=== PATIENT | female | born 1935 | race African-American/Black ===

== ENCOUNTER → 2024-02-28 | Outpatient (CLI) | payer OTHER | END | disposition home or self-care (01) | LOC: XYW 10:30 | PROVIDERS: ATTEND Student in an Organized Health Care Education/Training Program | DX: I51.89 Other ill-defined heart diseases (principal); R06.02 Shortness of breath | CPT/HCPCS: 93306 ==

== ENCOUNTER → 2024-03-30 | Outpatient (CLI) | payer OTHER ==
[~2024-03-30] VITALS: Ht 157.5 cm; Wt 74.4 kg
[2024-03-30] MEDS: ADENOSINE 62 MG in GIVE UN-DILUTED 0 ML IV ONE (11:32)
== END | disposition home or self-care (01) ==
LOC: XYW 09:44
PROVIDERS: ATTEND Student in an Organized Health Care Education/Training Program
DX: R06.02 Shortness of breath (principal); I45.10 Unspecified right bundle-branch block; I48.91 Unspecified atrial fibrillation; E78.5 Hyperlipidemia, unspecified; I10 Essential (primary) hypertension
CPT/HCPCS: 78452; 93017; A9500; J0153

== ENCOUNTER → 2025-01-16 | Outpatient (CLI) | payer OTHER ==
[2025-01-16 11:15] LABS: Hematocrit 38.7 % (36.0-46.0); Hemoglobin 12.7 g/dL (12.2-16.2); Mean Corpuscular Hemoglobin 29.1 pg (28.0-32.0); Mean Corpuscular Volume 88.5 fL (80.0-100.0); Nucleated Red Blood Cells % 0.1 %
[2025-01-16 11:40] LABS: Alanine Aminotransferase 26 U/L (7-40); Albumin 4.2 g/dL (3.2-4.8); Alkaline Phosphatase 55 U/L (46-116); Anion Gap 10 (5-15); BUN/Creatinine Ratio 14.2 (10.0-20.0); Blood Urea Nitrogen 15 mg/dL (9-23); Calcium 10.0 mg/dL (8.7-10.4); Carbon Dioxide 22 mmol/L (20-31); Glucose 95 mg/dL (74-106); Potassium 4.3 mmol/L (3.5-5.1); Sodium 141 mmol/L (136-145); Total Protein 6.7 g/dL (5.7-8.2); Triglycerides 120 mg/dL (< 150)
[2025-01-16 11:41] LABS: Bilirubin, Total 0.5 mg/dL (0.2-1.0); Cholesterol 169 mg/dL (< 200); HDL Cholesterol 48 mg/dL (40-59)
[2025-01-16 11:49] LABS: Chloride 109 mmol/L (98-107)
== END | disposition home or self-care (01) ==
LOC: LAB 10:41
PROVIDERS: ATTEND Internal Medicine Hematology & Oncology
DX: I10 Essential (primary) hypertension (principal); R05.1 Acute cough
CPT/HCPCS: 36415; 80053; 80061; 82306; 84439; 84443; 85025

== ENCOUNTER 2025-04-05 15:25 | Outpatient (CLI) | payer OTHER ==
[2025-04-05 16:02] LABS: Hematocrit 41.4 % (36.0-46.0); Hemoglobin 13.2 g/dL (12.2-16.2); Mean Corpuscular Hemoglobin 28.2 pg (28.0-32.0); Mean Corpuscular Volume 88.1 fL (80.0-100.0); Nucleated Red Blood Cells % 0.3 %
[2025-04-05 16:26] LABS: Alanine Aminotransferase 18 U/L (7-40); Albumin 4.2 g/dL (3.2-4.8); Alkaline Phosphatase 60 U/L (46-116); Anion Gap 9 (5-15); BUN/Creatinine Ratio 11.6 (10.0-20.0); Bilirubin, Total 0.6 mg/dL (0.2-1.0); Blood Urea Nitrogen 14 mg/dL (9-23); Calcium 9.6 mg/dL (8.7-10.4); Carbon Dioxide 26 mmol/L (20-31); Cholesterol 170 mg/dL (< 200); Glucose 87 mg/dL (74-106); HDL Cholesterol 45 mg/dL (40-59); Potassium 4.0 mmol/L (3.5-5.1); Sodium 142 mmol/L (136-145); Total Protein 7.0 g/dL (5.7-8.2); Triglycerides 109 mg/dL (< 150)
[2025-04-05 16:27] LABS: Chloride 107 mmol/L (98-107)
== END 2025-04-08 17:00 | disposition home or self-care (01) ==
LOC: LAB 15:25
PROVIDERS: ATTEND Internal Medicine Hematology & Oncology
DX: I10 Essential (primary) hypertension (principal); R05.1 Acute cough
CPT/HCPCS: 36415; 80053; 80061; 82306; 84439; 84443; 85025

== ENCOUNTER 2025-05-02 16:02 | Inpatient (IN) | payer OTHER ==
[~2025-05-02] VITALS: Ht 172.7 cm; Wt 80.5 kg
--- NOTE | 2025-05-02 16:23 | ED.PDOC ---
History of Present Illness HPI Comments This is an 89-year-old female who comes in with chief complaint of shortness a breath. The patient states that she was having some dizziness and then went to the urgent care for the shortness for breath. She states that she did try taking her hand-held nebulizer which did not help. When she arrived at the [facility], the patient did receive a breathing treatment and then became somewhat lethargic as well as had some nausea. 911 was called and when the paramedics arrived, the patient became more alert. They placed her on 4 L nasal cannula because she was still somewhat hypoxic. On the 4 L the patient is 97%. EN route the patient's heart rate was 136 and the Accu-Chek was 80. Upon arrival, the patient is able to answer all questions appropriately. Chief Complaint: Shortness of Breath Time Seen by MD: 16:09 Reviewed Notes: Nurses Notes, Preventive Medicine Specialist Notes, Medications, Allergies (Allergies to penicillin) Allergies: Coded Allergies: Penicillins (Verified Allergy, Unknown, 03/30/24) Information Source: Patient, Emergency Med Personnel Mode of Arrival: EMS Severity: Moderate Timing: Hours Duration: Since onset Prehospital treatment: Accucheck (80), Paralegal Internship, IVF, Oxygen (4 L nasal cannula) Associated signs and symptoms Associated shortness a breath with the dizziness. The patient also had some nausea and lethargy Past Medical History PAST MEDICAL HISTORY: AFIB, Asthma, DM, GERD, Thyroid Surgical History: Tonsillectomy Surgical History (Other): Right hip surgery INFECTION CONTROL PREVENTIONIST History: No Pertinent INFECTION CONTROL PREVENTIONIST History Family History Family History: Family hx of heart jake Social History Smoker: Non-Smoker Alcohol: Denies ETOH Use Drugs: Denies Drug Use Lives In: Home Constitutional: reports: others (Episode of lethargy); denies: chills, diaphoresis, fatigue, fever, malaise, sweats, weakness EENTM: denies: blurred vision, double vision, ear bleeding, ear discharge, ear drainage, ear pain, ear ringing, eye pain, eye redness, hearing loss, mouth pain, mouth swelling, nasal discharge, nose bleeding, nose congestion, nose pain, photophobia, tearing, throat pain, throat swelling, voice changes, others Respiratory: reports: shortness of breath; denies: cough, hemoptysis, orthopnea, SOB at rest, SOB with excertion, stridor, wheezing, others Cardiovascular: denies: chest pain, dizzy spells, diaphoresis, Dyspnea on exertion, edema, irregular heart beat, left arm pain, lightheadedness, palpitations, PND, syncope, others Gastrointestinal: reports: nausea; denies: abdomen distended, abdominal pain, blood streaked bowels, constipated, diarrhea, dysphagia, difficulty swallowing, hematemesis, melena, poor appetite, poor fluid intake, rectal bleeding, rectal pain, vomiting, others Genitourinary: denies: abnormal vagina bleeding, burning, dyspareunia, dysuria, flank pain, frequency, hematuria, incontinence, pain, , vagina discharge, urgency, others Neurological: reports: dizziness; denies: fainting, headache, left sided numbness, left sided weakness, numbness, paresthesia, pre-existing deficit, right sided numbness, right sided weakness, seizure, speech problems, tingling, tremors, weakness, others Musculoskeletal: denies: back pain, gout, joint pain, joint swelling, muscle pain, muscle stiffness, neck pain, others Integumetry: denies: bruises, change in color, change in hair/nails, dryness, laceration, lesions, lumps, rash, wounds, others Allergic/Immunocompromised: denies: Difficulty Healing, Frequent Infections, Hives, Itching, others Hematologic/Lymphatic: denies: anemia, blood clots, easy bleeding, easy bruising, swollen glands, others Endocrine: denies: excessive hunger, excessive sweating, excessive thirst, excessive urination, flushing, intolerance to cold, intolerance to heat, unexplained weight gain, unexplained weight loss, others Psychiatric: denies: anxiety, bipolar disorder, depression, hopeless, panic disorder, schizophrenia, sleepless, suicidal, others Physical Exam General Appearance: Moderate Distress HEENT: Normal ENT Inspection, Pharynx Normal, TMs Normal Neck: Full Range of Motion, Non-Tender, Normal, Normal Inspection Respiratory: Chest Non-Tender, Decreased Breath Sounds, No Accessory Muscle Use, Respiratory Distress, Other (Decreased breath sounds on the right) Cardiovascular: No Edema, No JVD, No Murmur, No Gallop, Normal Peripheral Pulses, Regular Rate/Rhythm Breast Exam: Deferred Gastrointestinal: No Organomegaly, Non Tender, No Pulsatile Mass, Normal Bowel Sounds, Soft Genitalia: Deferred Pelvic: Deferred Rectal: Deferred Extremities: No calf tenderness, Normal capillary refill, No pedal edema Musculoskeletal : Apperance: Normal Neurologic: Alert, retail sales assistant II-XII nml as Tested, Motor Weakness, Normal Affect, Normal Mood, No Sensory Deficits Cerebellar Function: Normal Reflexes: Normal Skin: Dry, Normal Color, Warm Lymphatic: No Adenopathy Was a procedure done? Was a procedure done?: No EKG EKG : Pulse Rate (adult): 137 [place]: Normal Block: RBBB ST: Nonsp (LAFB) Differential Dx Considerations may include: Generalized weakness, electrolyte imbalance, dehydration X-Ray, Labs, Meds, VS Vital Signs Date Time Temp Pulse Resp B/P (MAP) Pulse Ox O2 Delivery O2 Flow Rate FiO2 05/02/25 16:24 137 05/02/25 16:14 137 05/02/25 16:11 97.7 136 18 146/111 9 97.7 Lab Test 05/02/25 17:48 05/02/25 16:28 Range/Units Troponin I High Sensitivity 23 22 </=34 ng/L White Blood Count 5.5 4.4-10.8 10^3/uL Red Blood Count 5.00 4.0-5.20 10^6/uL Hemoglobin 14.0 12.2-16.2 g/dL Hematocrit 46.2 H 36.0-46.0 % Mean Corpuscular Volume 92.5 80.0-100.0 fL Mean Corpuscular Hemoglobin 28.1 28.0-32.0 pg Mean Corpuscular Hemoglobin Concent 30.4 L 32.0-36.0 g/dL Red Cell Distribution Width 17.8 H 11.8-14.3 % Platelet Count 249 140-450 10^3/uL Mean Platelet Volume 7.9 6.9-10.8 fL Neutrophils (%) (Auto) 66.5 37.0-80.0 % Lymphocytes (%) (Auto) 24.1 10.0-50.0 % Monocytes (%) (Auto) 7.9 0.0-12.0 % Eosinophils (%) (Auto) 0.7 0.0-7.0 % Basophils (%) (Auto) 0.8 0.0-2.0 % Neutrophils # (Auto) 3.6 1.6-8.6 10 ^3/uL Lymphocytes # (Auto) 1.3 0.4-5.4 10 ^3/uL Monocytes # (Auto) 0.4 0-1.3 10 ^3/uL Eosinophils # (Auto) 0 0-0.8 10 ^3/uL Basophils # (Auto) 0 0-0.2 10 ^3/uL Nucleated Red Blood Cells 0.2 % Sodium Level 141 136-145 mmol/L Potassium Level 5.1 3.5-5.1 mmol/L Chloride Level 107 98-107 mmol/L Carbon Dioxide Level 20 20-31 mmol/L Anion Gap 14 5-15 Blood Urea Nitrogen 13 9-23 mg/dL Creatinine 1.30 H 0.550-1.02 mg/dL Glomerular Filtration Rate Calc 40 >90 mL/min BUN/Creatinine Ratio 10.0 10.0-20.0 Serum Glucose 78 74-106 mg/dL Calcium Level 9.9 8.7-10.4 mg/dL B-Type Natriuretic Peptide 966.80 0-100 pg/mL Chest XR indicates: 1. Right lower lobe pleural effusion. The BNP shows 966.8 The chemistry panel shows a creatinine of 1.3 The patient's CBC is within normal limits. The troponin level is within normal limits At this time, the patient is being admitted to the hospitalist The diagnosis is acute respiratory distress Right pleural effusion Images Reviewed?: Images reviewed and evaluated by me Time of 1ST Reevaluation: 16:22 Reevaluation 1ST: Unchanged Patient Education/Counseling: Diagnosis, Treatment, Prognosis Family Education/Counseling: No Family Present SEPSIS Sepsis Screen Date sepsis recognized/suspect: May 02, 2025 Time Sepsis recognized/suspect: 1613 Recent Procedure: No On Antibiotic Therapy: No Respiratory Rate >20: No Heart Rate >90: Yes Temp<36 C (96.8 F) or >38.3 C: No SBP <90 or MAP <65 mmHG: No New Acute Mental Status Change: No Is the patient on CPAP, BIPAP,: No Physician Orders Urinalysis (05/02/25 16:11) Chest Portable (05/02/25 16:11) Heplock Iv (05/02/25 16:11) Pulse Oximetry (05/02/25 16:11) Paralegal Internship (05/02/25 16:11) Blood Pressure (10/16/25 16:11) Electrocardigram (05/02/25 16:11) Troponin-I Hs (05/02/25 19:11) Electrocardigram (05/02/25 17:11) Electrocardigram (05/02/25 19:11) Covid19 Antigen Marta (05/02/25 ) Vital Signs Date Time Temp Pulse Resp B/P (MAP) Pulse Ox O2 Delivery O2 Flow Rate FiO2 05/02/25 16:24 137 05/02/25 16:14 137 05/02/25 16:11 97.7 136 18 146/111 9 97.7 Laboratory Tests Test 05/02/25 16:28 White Blood Count 5.5 10^3/uL (4.4-10.8) Departure 1 Departure Time of Disposition: 18:39 Impression: Primary Impression: Acute respiratory distress Additional Impression: Pleural effusion, right Disposition: 09 ADMITTED INPATIENT Admit to: Tele Condition: Fair Critical Care Note Critical Care Time?: Yes (45 min-critical care time only) Stability Stability form required: Yes Unstable for transfer: Telemetry monitoring (Telemetry monitoring required), ED Physician Assesment (Clinical assesment) Heart Score Heart Score: Heart Score Response (Comments) Value History N/A 0 EKG N/A 0 Age N/A 0 Risk Factors N/A 0 Troponin N/A 0 Total 0 I personally scribed for LUIS ANTONIO SHANE MD ([email or web address]) on 05/02/25 at 16:46. Electronically submitted by Javan Melara ([email or web address]). LUIS ANTONIO SHANE MD May 02, 2025 16:23
[2025-05-02 16:40] LABS: Hematocrit 46.2 % (36.0-46.0); Hemoglobin 14.0 g/dL (12.2-16.2); Mean Corpuscular Hemoglobin 28.1 pg (28.0-32.0); Mean Corpuscular Volume 92.5 fL (80.0-100.0); Nucleated Red Blood Cells % 0.2 %
--- NOTE | 2025-05-02 16:44 | DVH ---
CHEST RADIOGRAPH Indication: sob Technique: Single frontal view of the chest was obtained Comparison: None FINDINGS: Lines and Tubes: None Lungs: Right lower lobe infiltrate and pleural effusion. Pleura: Right pleural effusion.. No pneumothorax. Cardiomediastinal contours: Unremarkable Bones: No acute osseous abnormality. IMPRESSION: 1. Right lower lobe pleural effusion.
[2025-05-02 16:48] LABS: Potassium 5.1 mmol/L (3.5-5.1); Sodium 141 mmol/L (136-145)
[2025-05-02 16:49] LABS: Anion Gap 14 (5-15); Calcium 9.9 mg/dL (8.7-10.4); Carbon Dioxide 20 mmol/L (20-31)
[2025-05-02 16:51] LABS: Chloride 107 mmol/L (98-107)
[2025-05-02 16:54] LABS: BUN/Creatinine Ratio 10.0 (10.0-20.0); Blood Urea Nitrogen 13 mg/dL (9-23); Glucose 78 mg/dL (74-106)
--- NOTE | 2025-05-02 18:47 | ECG ---
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
[2025-05-02] MEDS: methylPREDNISolone SOD SUCC 125 MG/2 ML VL IV ONE (19:45)
[2025-05-02 20:13] VITALS: PULSE 130; RESP 20; O2SAT 97
[2025-05-02 22:25] LABS: Alanine Aminotransferase 37.0 U/L (7-40); Albumin 4.4 g/dL (3.2-4.8); Alkaline Phosphatase 90.0 U/L (46-116); Bilirubin, Direct 0.8 mg/dL (<0.3); Bilirubin, Total 2.1 mg/dL (0.2-1.0); Cholesterol 157.0 mg/dL (< 200); HDL Cholesterol 50.0 mg/dL (40-59); Magnesium 2.1 mg/dL (1.6-2.6); Total Protein 7.3 g/dL (5.7-8.2); Triglycerides 98.0 mg/dL (< 150)
[2025-05-02 22:36] LABS: Lipase 23.0 U/L (12-53)
[2025-05-02 22:58] LABS: INR 1.46 (0.9-1.15); Partial Thromboplastin Time 27.0 SEC (24.5-34.5); Prothrombin Time 14.9 sec (9.3-11.8)
[2025-05-02 23:29] LABS: Lactic Acid w/Reflex 2.6 mmol/L (0.4-2.0)
[2025-05-02] MEDS: SODIUM CHLORIDE 0.9% 1,000 ML IV ONE (23:30)
[2025-05-03] VITALS (12 sets, daily range): BP systolic 109–115; BP diastolic 57–72; PULSE 132–141; RESP 12–21; TEMP 97.5–98.1; O2SAT 92–100
[2025-05-03] MEDS ORDERED: ENOXAPARIN SOD 40 MG/0.4 ML SYRINGE SC SCH (00:15)
[2025-05-03] MEDS ORDERED: AZITHROMYCIN 500MG/ 250ML 250 ML IV ONE (00:45)
[2025-05-03] MEDS: SODIUM CHLORIDE 0.9% 1,000 ML IV ONE ×2 (00:45)
[2025-05-03] MEDS ORDERED: SODIUM CHLORIDE 0.9% 1,000 ML IV SCH (00:45)
--- NOTE | 2025-05-03 00:48 | DVH ---
INDICATION: Rule out cholecystitis TECHNIQUE: Multiple real-time sonographic images were obtained of the right upper quadrant. COMPARISON: None FINDINGS: Liver is normal in size measuring 12.9 cm with mild diffuse fatty infiltration. No focal lesions. There is no intrahepatic or extrahepatic ductal dilatation. The common duct measures 0.7 cm. The gallbladder is without evidence of stone or sludge. The gallbladder wall measures 1.0 cm and appe ars edematous. The right kidney measures 6.9 cm. The right kidney is normal in contour, size, and shape. The echogen icity is normal. There is no hydronephrosis. Probable nonobstructing calculus of the midpole measurin g 0.6 cm. The pancreas is not well visualized due to overlying bowel gas. IMPRESSION: No gallstones or evidence for acute cholecystitis. Gallbladder wall is thickened, a nonspecific finding that can be related to the patient's overall flu id status or an adjacent inflammatory process such as hepatitis or pancreatitis.
[2025-05-03] MEDS ORDERED: DEXTROSE (50%) 50ML SYRG IV PRN (01:45)
--- NOTE | 2025-05-03 02:01 | DVHHPRES ---
History of Present Illness Resident Creating Document: PETE ELIZABETH RESIDENT History of Present Illness This is an 89 year old female with past medical history of hypertension, hyperlipidemia, type 2 diabetes mellitus, presented to the ER with chief complain of shortness of breath. She reported having difficulty breathing since 1 day, present while resting, associated with back pain and dizziness. Patient describes pain in lower back as vague, 9/10, nonradiating. Since 1 day, she has been feeling lightheaded, with difficulty in standing up, causing her to lose balance. These symptoms urged her visit to the urgent care, where she started complaining of nausea and lethargy and was brought to the ER by paramedics. She denies fever, chills, sick contacts or recent travel. She does not use any home oxygen, currently saturating on 3 L oxygen. Previous hospitalization: In 2022 for influenza PMHx: Hypertension, hyperlipidemia, type 2 diabetes mellitus PSHx: Hip replacement surgery and 2 sections Social history: Quit smoking in 2008, 40 pack per year smoking history. Denies alcohol, recreational drug use. Full code, next to kin his grandson. Home medication: Eliquis, unsure of other home medication Allergic history: No known allergies Patient was examined at bedside today. Vitals show tachycardia, tachypnea, curr ently on 3 L oxygen. Patient is admitted for further evaluation and manage. Review of Systems Review of Systems ROS: Constitutional: Denies weight loss, fever and chills. HEENT: Denies changes in vision and hearing. Respiratory: Shortness of breath Cardiovascular: Denies chest discomfort or palpitations GI: Denies abdominal pain, nausea, vomiting and diarrhea. : Denies dysuria and urinary frequency. Musculoskeletal: Myalgias; denies joint pain Skin: Denies rash and pruritus. Neurological: Dizziness; Denies headache, vision or hearing problems Allergies: Coded Allergies: Penicillins (Verified Allergy, Unknown, 03/30/24) Medications Current Medications Medications Dose Ordered Sig/Mis Route Start Time Stop Time Status Last Admin Dose Admin Atorvastatin Calcium 20 mg HS PO 05/03/25 22:00 Ceftriaxone Sodium 50 ml @ 100 mls/hr DAILY@09 IV 05/04/25 09:00 Levalbuterol HCl 1.25 mg Q6HR NEB 05/03/25 06:00 Ipratropium [place] 0.5 mg Q6HWA NEB 05/03/25 06:00 Furosemide 20 mg BIDD IV 05/03/25 06:00 Pantoprazole Sodium 40 mg DAILY IV 05/03/25 10:00 Sodium Chloride 1,000 ml @ 60 mls/hr [id number] IV 05/03/25 00:45 Doxycycline Hyclate 100 ml @ 50 mls/hr Q12H IV 05/03/25 22:00 Methylprednisolone Sodium Succinate 40 mg BID IV 05/03/25 10:00 Enoxaparin Sodium 80 mg Q12HR SC 05/03/25 10:00 Exam Vital Signs Vital Signs Date Time Temp Pulse Resp B/P (MAP) Pulse Ox O2 Delivery O2 Flow Rate FiO2 05/03/25 00:39 98.3 135 20 134/88 (103) 99 98.3 05/03/25 00:39 Nasal Cannula 3.0 05/03/25 00:27 32 Exam General: Patient alert and oriented in person, place and time. Patient following commands. HEENT: Normocephalic, atraumatic, moist mucous membranes Respiratory/pulmonary: Reduced breath sounds in right lower lung romero. Cardiovascular: Tachycardia. Normal heart sounds S1 and S2 with no associated murmurs Abdomen: Abdomen nondistended, there is no pain to palpation in any of the abdominal quadrants, no palpable masses. Extremities: Grade 3 pitting edema in bilateral lower extremities. Peripheral Pulses: 3+ Radial (R). 3+ Radial (L). 3+ Dorsalis pedis (R). 3+ Dorsalis pedis(L) Skin: No rashes or pruritus, there is no sacral edema present at this time. Neurological: Intact cranial nerves with no focal neurologic deficits Labs/Xrays Labs Test 05/02/25 23:44 05/02/25 21:15 05/02/25 19:58 05/02/25 16:28 Range/Units Lactic Acid Level 2.5 *H 0.4-2.0 mmol/L Prothrombin Time 14.9 H 9.3-11.8 sec Prothrombin Time INR 1.46 H 0.9-1.15 Activated Partial Thromboplast Time 27.0 24.5-34.5 SEC Troponin I High Sensitivity 24 </=34 ng/L Vitamin B12 Level 787 211-911 pg/mL Vitamin D 25-Hydroxy 48.5 30.0-100 ng/mL White Blood Count 5.5 4.4-10.8 10^3/uL Red Blood Count 5.00 4.0-5.20 10^6/uL Hemoglobin 14.0 12.2-16.2 g/dL Hematocrit 46.2 H 36.0-46.0 % Mean Corpuscular Volume 92.5 80.0-100.0 fL Mean Corpuscular Hemoglobin 28.1 28.0-32.0 pg Mean Corpuscular Hemoglobin Concent 30.4 L 32.0-36.0 g/dL Red Cell Distribution Width 17.8 H 11.8-14.3 % Platelet Count 249 140-450 10^3/uL Mean Platelet Volume 7.9 6.9-10.8 fL Neutrophils (%) (Auto) 66.5 37.0-80.0 % Lymphocytes (%) (Auto) 24.1 10.0-50.0 % Monocytes (%) (Auto) 7.9 0.0-12.0 % Eosinophils (%) (Auto) 0.7 0.0-7.0 % Basophils (%) (Auto) 0.8 0.0-2.0 % Neutrophils # (Auto) 3.6 1.6-8.6 10 ^3/uL Lymphocytes # (Auto) 1.3 0.4-5.4 10 ^3/uL Monocytes # (Auto) 0.4 0-1.3 10 ^3/uL Eosinophils # (Auto) 0 0-0.8 10 ^3/uL Basophils # (Auto) 0 0-0.2 10 ^3/uL Nucleated Red Blood Cells 0.2 % Sodium Level 141 136-145 mmol/L Potassium Level 5.1 3.5-5.1 mmol/L Chloride Level 107 98-107 mmol/L Carbon Dioxide Level 20 20-31 mmol/L Anion Gap 14 5-15 Blood Urea Nitrogen 13 9-23 mg/dL Creatinine 1.30 H 0.550-1.02 mg/dL Glomerular Filtration Rate Calc 40 >90 mL/min BUN/Creatinine Ratio 10.0 10.0-20.0 Serum Glucose 78 74-106 mg/dL Hemoglobin A1c 5.9 H <5.7 % A1C Calcium Level 9.9 8.7-10.4 mg/dL Phosphorus Level 4.1 2.4-5.1 mg/dL Magnesium Level 2.1 1.6-2.6 mg/dL Total Bilirubin 2.1 H 0.2-1.0 mg/dL Direct Bilirubin 0.8 H <0.3 mg/dL Aspartate Amino Transferase (AST) 66 H 13-40 U/L Alanine Aminotransferase (ALT) 37 7-40 U/L Alkaline Phosphatase 90 46-116 U/L C-Reactive Protein High Sensitivity 2.40 H <1.0 mg/dL B-Type Natriuretic Peptide 966.80 0-100 pg/mL Total Protein 7.3 5.7-8.2 g/dL Albumin 4.4 3.2-4.8 g/dL Triglycerides Level 98 < 150 mg/dL Cholesterol Level 157 < 200 mg/dL LDL Cholesterol 89 < 100 mg/dL HDL Cholesterol 50 40-59 mg/dL Lipase 23 12-53 U/L Thyroid Stimulating Hormone (TSH) 2.72 0.55-4.78 uIU/mL SEPSIS Sepsis Screen Date sepsis recognized/suspect: May 03, 2025 Time Sepsis recognized/suspect: 42 Recent Procedure: No On Antibiotic Therapy: No Respiratory Rate >20: No Heart Rate >90: Yes Temp<36 C (96.8 F) or >38.3 C: No SBP <90 or MAP <65 mmHG: No New Acute Mental Status Change: No Is the patient on CPAP, BIPAP,: No Physician Orders Drug Screen (05/02/25 21:24) Urinalysis (05/02/25 21:24) Complete Blood Count (05/03/25 04:00) Basic Metabolic Panel (05/03/25 04:00) LIVER (05/02/25 23:31) Admit (05/03/25 00:11) Allergies (05/03/25 00:11) Code Status (05/03/25 00:11) Cardiac Diet-2gna,Lofat,Lochol (05/03/25 Breakfast) Echo 2d Mode Cardiac Dop (05/03/25 00:11) Carotid Duplx W Color Dop (05/03/25 00:11) Condition: Serious (05/03/25 00:11) Oxygen By Nasal Cannula (05/03/25 00:11) Stat Ekg For Chest Pain (05/03/25 00:11) Notify Md Of Changes From Base (05/03/25 00:11) Photographers' Model For 24 Hours (05/03/25 00:11) Emergency Dysrhythmia Protocol (05/03/25 00:11) Rhythm Strips Once Every Shift (05/03/25 00:11) Atorvastatin (Lipitor) (05/03/25 22:00) Levalbuterol Hcl (Xopenex Medneb) (05/03/25 06:00) Ipratropium Medneb (Atrovent Medneb) (05/03/25 06:00) Rapid Influenza A&B (05/03/25 00:11) Respiratory Culture W/ Gs (05/03/25 00:11) Sputum Induction (05/03/25 00:11) Furosemide Injection (Lasix Injection) (05/03/25 06:00) Mrsa Screen (05/03/25 00:20) Pantoprazole (Protonix) (05/03/25 10:00) Ceftriaxone 1gm/50ml (Rocephin) (05/04/25 09:00) Sodium Chloride 0.9% (05/03/25 00:45) Sodium Chloride 0.9% (05/03/25 00:45) Sodium Chloride 0.9% (05/03/25 00:45) Blood Culture (05/03/25 00:39) Chest Ultrasound (05/03/25 01:16) Doxycycline 100mg/100ml (Vibramycin) (05/03/25 22:00) Doxycycline 100mg/100ml (Vibramycin) (05/03/25 01:30) Urine Bacterial Culture (05/03/25 01:16) Methylprednisolone Sod Succ (Solu Medrol (05/03/25 10:00) Enoxaparin Sodium (Lovenox) (05/03/25 10:00) Abg W/ Co-Ox (05/03/25 01:21) Electrocardigram (05/03/25 01:21) Vital Signs Date Time Temp Pulse Resp B/P (MAP) Pulse Ox O2 Delivery O2 Flow Rate FiO2 05/03/25 00:39 98.3 135 20 134/88 (103) 99 98.3 05/03/25 00:39 135 20 99 Nasal Cannula 3.0 05/03/25 00:27 97.5 132 20 115/57 97 3.0 32 97.5 05/02/25 20:13 130 20 97 Nasal Cannula* 3 32 05/02/25 20:13 97.5 130 22 115/57 (76) 97 97.5 Laboratory Tests Test 05/02/25 16:28 05/02/25 21:15 05/02/25 23:44 White Blood Count 5.5 10^3/uL (4.4-10.8) Lactic Acid Level 2.6 mmol/L (0.4-2.0) *H 2.5 mmol/L (0.4-2.0) *H Medications Medications Dose Ordered Sig/Mis Route Start Time Stop Time Status Last Admin Dose Admin Methylprednisolone Sodium Succinate 125 mg ONCE ONCE IV 05/02/25 16:15 05/02/25 16:16 DC 05/02/25 19:45 125 MG Assessment/Plan Assessment/Plan Sepsis due to Community-acquired pneumonia Acute exacerbation of COPD Acute hypoxic respiratory failure Right moderate pleural effusion CXR revealed right lower lobe consolidation/ pleural effusion Tachycardia, tachypnea, lactic acidosis Sputum culture, blood culture, MRSA, Gram stain ordered IV ceftriaxone 1 g, IV doxycycline 100 mg b.i.d. (QTC prolongation) Restricted fluid resuscitation in context of exacerbation of heart failure Oxygen supplementation currently on 3 L; taper down as tolerated Nebulization therapy with albuterol and ipratropium Prednisolone 40 mg IV b.i.d. 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 Repeat echocardiogram CXR revealed right lower lobe consolidation/ pleural effusion Started on furosemide 20 mg IV b.i.d. 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 Full code DISPOSITION: Telemetry Patient's status and plan discussed with the patient. Case discussed with Dr. Jennings. Plan discussed with: Patient, Daughter, Other (Nurses) My Orders Orders - PETE ELIZABETH RESIDENT Procedure Category Date Status Time Drug Screen LAB 05/02/25 Logged 21:24 Urinalysis LAB 05/02/25 Logged 21:24 Complete Blood Count LAB 05/03/25 Logged 04:00 Basic Metabolic Panel LAB 05/03/25 Logged 04:00 LIVER US 05/02/25 Resulted 23:31 Admit ADMIT 05/03/25 Transmitted 00:11 Allergies JORDAN 05/03/25 In Process 00:11 Code Status CODE 05/03/25 Transmitted 00:11 Cardiac DIET 05/03/25 Transmitted Diet-2gna,Lofat,Lochol Breakfast Echo 2d Mode Cardiac US 05/03/25 Logged DOP 00:11 Carotid Duplx W Color US 05/03/25 Logged DOP 00:11 Condition: Serious JORDAN 05/03/25 In Process 00:11 Oxygen By Nasal RT 05/03/25 Transmitted Cannula 00:11 Stat Ekg For Chest JORDAN 05/03/25 In Process Pain 00:11 Notify Of Changes JORDAN 05/03/25 In Process From Base 00:11 Photographers' Model For JORDAN 05/03/25 In Process 24 Hours 00:11 Emergency Dysrhythmia JORDAN 05/03/25 In Process Protocol 00:11 Rhythm Strips Once JORDAN 05/03/25 In Process Every Shift 00:11 Atorvastatin (Lipitor) PHA 05/03/25 In Process 22:00 Levalbuterol Hcl PHA 05/03/25 In Process (Xopenex Medneb) 06:00 Ipratropium Medneb PHA 05/03/25 In Process (Atrovent Medneb) 06:00 Rapid Influenza A&B LAB 05/03/25 Logged 00:11 Respiratory Culture MARIE 05/03/25 Logged W/ Gs 00:11 Sputum Induction RT 05/03/25 Logged 00:11 Furosemide Injection PHA 05/03/25 In Process (Lasix Injection) 06:00 Mrsa Screen MARIE 05/03/25 Logged 00:20 Pantoprazole PHA 05/03/25 In Process (Protonix) 10:00 Ceftriaxone 1gm/50ml PHA 05/04/25 In Process (Rocephin) 09:00 Sodium Chloride 0.9% PHA 05/03/25 In Process 00:45 Sodium Chloride 0.9% PHA 05/03/25 In Process 00:45 Sodium Chloride 0.9% PHA 05/03/25 In Process 00:45 Blood Culture MARIE 05/03/25 Logged 00:39 Date of Service: May 03, 2025 Billing Provider: TRISTEN JENNINGS MD Common Visit Codes: [id number] INP/OBS CARE (HIGH) Secondary Visit Codes: [id number] CARE PLAN 30 MINUTES PETE ELIZABETH RESIDENT May 03, 2025 02:01 PHIL BERRIOS RESIDENT May 03, 2025 05:57
[2025-05-03 04:30] LABS: COVID19 ANTIGEN SOFIA FIA NEGATIVE (NEGATIVE)
--- NOTE | 2025-05-03 04:31 | DVH ---
CHEST RADIOGRAPH Indication: central line placement Technique: Single frontal view of the chest was obtained COMPARISON: XY CHEST PORTABLE on DOS: 05/02/25, XY CHEST TWO VIEWS ROUTINE on DOS: 01/31/23 FINDINGS: Lines and Tubes: New right internal jugular central venous catheter tip projects over the distal infe rior vena cava. Lungs: Stable appearing right pleural effusion and basilar pulmonary airspace disease and diffuse inc reased prominence of the pulmonary vasculature. No pneumothorax. Cardiomediastinal contours: Cardiomegaly. Bones: Unremarkable IMPRESSION: 1. New right internal jugular central venous catheter tip projects over the distal inferior vena cava . Recommend retraction as indicated. 2. Right pleural effusion and basilar pulmonary airspace disease. 3. Cardiomegaly and diffuse increased prominence of the pulmonary vasculature.
--- NOTE | 2025-05-03 04:49 | DVH ---
Bilateral Chest Sonogram Date: 05/03/2025 02:03 AM Clinical history: Evaluate right pleural fluid Technique: Limited sonographic evaluation of the bilateral chest was performed to evaluate for pleura l effusion. Finding/Impression: There is a moderate right and small left pleural effusion.
[2025-05-03] MEDS: HYDROmorphone HCL 2 MG/ML VL/or syr IV ONE (04:54)
[2025-05-03] MEDS: FUROSEMIDE 20 MG/2 ML VIAL IV ONE (04:54)
[2025-05-03] MEDS: PIPERACILLIN-TAZOB 3.375GM 100 ML IV ONE (04:54)
[2025-05-03] MEDS: IPRATROPIUM BROM 0.5 MG/2.5ML INH SOL NEB SCH (06:26)
[2025-05-03] MEDS: LEVALBUTEROL HCL 1.25 MG/3 ML NEB NEB SCH (06:26)
[2025-05-03] MEDS: InsuLIN REG 1unit/0.01ml Soln (100units/ml) SC SCH (07:00)
[2025-05-03] MEDS: ACCU-CHEK COMFORT CURVE STRIP VI SCH (07:00)
[2025-05-03 07:08] LABS: Urine Budding Yeast OCCASIONAL /hpf (None Seen); Urine Protein, UAD Negative (Negative)
[2025-05-03 07:15] LABS: Calcium 9.2 mg/dL (8.7-10.4); Potassium 4.4 mmol/L (3.5-5.1); Sodium 141 mmol/L (136-145)
[2025-05-03 07:18] LABS: Opiate Scree,Urine Neg (NEGATIVE)
[2025-05-03 07:19] LABS: BUN/Creatinine Ratio 15.1 (10.0-20.0); Blood Urea Nitrogen 18 mg/dL (9-23); Hematocrit 41.2 % (36.0-46.0); Hemoglobin 12.9 g/dL (12.2-16.2); Mean Corpuscular Hemoglobin 28.7 pg (28.0-32.0); Mean Corpuscular Volume 91.4 fL (80.0-100.0); Nucleated Red Blood Cells % 0.6 %
[2025-05-03 07:21] LABS: Chloride 108 mmol/L (98-107); Glucose 121 mg/dL (74-106)
[2025-05-03 07:22] LABS: Anion Gap 13 (5-15); Carbon Dioxide 20 mmol/L (20-31)
[2025-05-03 07:23] LABS: Amphetamine Screen, Urine Neg (NEGATIVE); Barbiturate Scree,Urine Neg (NEGATIVE); Benzodiazephine Screen, Urine Neg (NEGATIVE); Cocaine Screen, Urine Neg (NEGATIVE); Phencyclidine Screen, Urine Neg (NEGATIVE)
[2025-05-03 07:24] LABS: Cannabinoid Screen, Urine Neg (NEGATIVE)
--- NOTE | 2025-05-03 08:30 | DVH ---
BILATERAL DUPLEX CAROTID ULTRASOUND: HISTORY: Presyncope COMPARISON: None TECHNIQUE: Hand held high-resolution real-time ultrasound and color-flow doppler analysis is utilized to evaluate the bilateral carotid arteries. Velocity measurements are validated with angiographic measurements. Velocity criteria are extrapolate d from diameter data as defined by the society of radiologists in ultrasound consensus conference rad iology 2003; 229;340-346. FINDINGS: Calcific plaquing is seen in bilateral carotid bulbs left greater than right. There is no focal elevated velocity or color aliasing to suggest significant carotid artery stenosis. There is normal antegrade flow in both vertebral arteries. Right: Peak systolic velocity common carotid Artery: 45 cm/s Peak systolic velocity internal carotid Artery: 53 cm/s Left: Peak systolic velocity common carotid Artery: 36 cm/s Peak systolic velocity internal carotid Artery: 56 cm/s IMPRESSION: 1. Calcific plaquing in bilateral carotid bulbs left greater than right with less than 50% stenosis.
[2025-05-03] MEDS: PANTOPRAZOLE 40 MG/10 ML VIAL INJ IV SCH (09:46)
[2025-05-03] MEDS ORDERED: AZITHROMYCIN 500MG/ 250ML 250 ML IV SCH (10:00)
[2025-05-03] MEDS ORDERED: ENOXAPARIN SOD 30 MG/0.3 ML SYRINGE SC SCH (10:00)
[2025-05-03] MEDS: FUROSEMIDE 20 MG/2 ML VIAL IV SCH (10:04)
[2025-05-03] MEDS: PANTOPRAZOLE 40 MG/10 ML VIAL INJ IV ONE (10:04)
[2025-05-03] MEDS: ENOXAPARIN SOD 100 MG/1 ML SYRINGE SC SCH (10:05)
[2025-05-03] MEDS: methylPREDNISolone SOD SUCC 40 MG/ML VL IV SCH (10:05)
[2025-05-03] MEDS: DOXYCYCLINE 100MG/100ML 100 ML IV ONE (10:05)
[2025-05-03] MEDS: AMIODARONE BOLUS KIT 100 ML IV ONE (14:37)
[2025-05-03] MEDS: AMIODARONE 360mg/200mL PREMIX 200 ML IV ONE (14:44)
--- NOTE | 2025-05-03 17:55 | DVHPNRES ---
Progress Note Date Seen: May 03, 2025 Resident Creating Document: MARCEL HOLLINS RESIDENT Has the PT tested + for MRSA If YES, has PT been informed?: No Medical Necessity Reason Pt with a Central, PICC or Fol: Yes Subjective Review of Systems This is an 89 year old female with past medical history of hypertension, hyperlipidemia, type 2 diabetes mellitus, presented to the ER with chief complain of shortness of breath. She is a poor historian and reported having difficulty breathing since 1 day. Patient describes pain in lower back as vague, 9/10, nonradiating. Since 1 day, she has been feeling lightheaded, with difficulty in standing up, causing her to lose balance. These symptoms urged her visit to the urgent care, where she started complaining of nausea and lethargy and was brought to the ER by paramedics. She denies fever, chills, sick contacts or recent travel. She does not use any home oxygen, currently saturating on 3 L oxygen. Previous hospitalization: In 2022 for influenza PMHx: Hypertension, hyperlipidemia, type 2 diabetes mellitus PSHx: Hip replacement surgery and 2 sections Social history: Quit smoking in 2008, 40 pack per year smoking history. Denies alcohol, recreational drug use. Full code, next to kin great grandson. Home medication: Eliquis, unsure of other home medication Allergic history: No known allergies ROS: 05/03/25 Patient was examined at bedside today. patient was drowsy in the morning but was fully oriented ANO x4 in the afternoon. Patient stated that she has been taking Eliquis daily and patient's heart rate has been consistently high due to her atrial fibrillation so we started her on amiodarone bolus and then continuous drip. I spoke to the patient's great grandson who is her caregiver and he states that the patient might have dementia- that she has been 'mixing things up and recalling old memories more often these days'. As per the great grandson, patient has been weak and fatigued for the whole week and her face and feet have swollen up. He also reports that patient has been having shortness of breath and after the appointment at PCP yesterday at 2:30 p.m., patient reported she felt dizzy and was unable to walk due to shortness of breath which is why the paramedics brought her to the emergency department. I discussed the patient's condition in detail with the great grandson and he communicated understanding. Objective vital signs Vital Sign Date Time Temp Pulse Resp B/P (MAP) Pulse Ox O2 Delivery O2 Flow Rate FiO2 05/03/25 17:45 134 20 100 05/03/25 17:32 Nasal Cannula* 2 28 05/03/25 16:00 97.5 125/89 (101) 97.5 medications Current Medications Medications Dose Ordered Sig/Mis Route Start Time Stop Time Status Last Admin Dose Admin Atorvastatin Calcium 20 mg HS PO 05/03/25 22:00 Ceftriaxone Sodium 50 ml @ 100 mls/hr DAILY@09 IV 05/04/25 09:00 Levalbuterol HCl 1.25 mg Q6HR NEB 05/03/25 06:00 05/03/25 17:32 1.25 MG Ipratropium Locke 0.5 mg Q6HWA NEB 05/03/25 06:00 05/03/25 17:32 0.5 MG Pantoprazole Sodium 40 mg DAILY IV 05/03/25 10:00 Doxycycline Hyclate 100 ml @ 50 mls/hr Q12H IV 05/03/25 22:00 Methylprednisolone Sodium Succinate 40 mg BID IV 05/03/25 10:00 05/03/25 10:05 40 MG Enoxaparin Sodium 80 mg Q12HR SC 05/03/25 10:00 05/03/25 10:05 80 MG Diagnostic Test (Pha) 1 strip ACHS 05/03/25 07:00 05/03/25 13:53 1 STRIP Insulin Human Regular ACHS SC 05/03/25 07:00 Dextrose 50 ml UD PRN IV 05/03/25 01:45 Examination General: Patient alert and oriented in person, place and time. Patient following commands. HEENT: Normocephalic, atraumatic, moist mucous membranes, on 3 L/min of oxygen via nasal cannula Respiratory/pulmonary: Reduced breath sounds in right lower lung romero. Cardiovascular: Tachycardia. Normal heart sounds S1 and S2 with no associated murmurs Abdomen: Abdomen nondistended, there is no pain to palpation in any of the abdominal quadrants, no palpable masses. Extremities: No pitting edema noted on examination, peripheral Pulses 3+ Radial (R). 3+ Radial (L). 3+ Dorsalis pedis (R). 3+ Dorsalis pedis(L) Skin: No rashes or pruritus, there is no sacral edema present at this time. Neurological: Intact cranial nerves with no focal neurologic deficits laboratory and microbiology Laboratory Tests 05/03/25 06:23 Test 05/03/25 06:23 Range/Units Serum Glucose 121 H 74-106 mg/dL Labs and/or images reviewed: Labs reviewed by me, Image(s) reviewed by me Problem List/Assessment/Plan Problem List/Assessment/Plan #Sepsis due to Community-acquired pneumonia # rule out Acute exacerbation of COPD #Acute hypoxic respiratory failure #Right moderate pleural effusion -CXR revealed right lower lobe consolidation/ pleural effusion -Tachycardia, tachypnea, lactic acidosis -Sputum culture, blood culture, MRSA, Gram stain ordered -IV ceftriaxone 1 g, IV doxycycline 100 mg b.i.d. (QTC prolongation) -Restricted fluid resuscitation in context of exacerbation of heart failure -Oxygen supplementation currently on 3 L; taper down as tolerated -Nebulization therapy with albuterol and ipratropium -Prednisolone 40 mg IV b.i.d. -pulmonology consult placed for pleural effusion on the right lung, pending #Acute exacerbation of Combined chronic diastolic, systolic heart failure HFmrEF -Echocardiogram from 02/2024 shows LVEF 45%, grade 1 diastolic dysfunction. Repeat echocardiogram -CXR revealed right lower lobe consolidation/ pleural effusion -Started on furosemide 20 mg IV b.i.d. 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) #GFR-40 -Avoiding nephrotoxins like NSAIDS, contrast -Low salt diet, maintain hydration -Repeat BMP DIET: Cardiac DVT PROPHYLAXIS: Lovenox on hold GI PROPHYLAXIS: Protonix Patient's status and plan discussed with the patient and great grandson; goals of care discussed for 20 minutes; full code Case discussed with Plan discussed with: Patient, Other (Nurse) Date of Service: May 03, 2025 Billing Provider: YUMIKO BURNS MD Common Visit Codes: [id number] INP/OBS CARE(HIGH) Secondary Visit Codes: 88139-UDHLLEAR CARE PLAN 30 MINUTES (20 minutes) Addendum Addendum Addendum I was physically present for the baker portions of the service provided to patient by THE RESIDENT. I have reviewed the documentation, discussed the case with resident and agree with the resident's documentation except as noted. Also the patient's clinical case was discussed with the patient's nurse. This medical document was created using an electronic medical record system with computerized dictation system. Although this document has been carefully reviewed, there might still be some phonetic and typographical errors. These areas are purely typographical due to imperfections of the software programs, and do not reflect any compromise in the patient's medical care. Late signature. MARCEL HOLLINS RESIDENT May 03, 2025 17:55 YUMIKO BURNS MD May 06, 2025 11:36
[2025-05-03] MEDS: AMIODARONE 360mg/200mL PREMIX 200 ML IV SCH (21:16)
--- NOTE | 2025-05-03 21:59 | DVHINCON2 ---
Date of service: May 03, [address] Armida Merino Reason for Consultation Acute hypoxic respiratory failure due to pneumonia and pleural effusion. History of Present Illness An 89-year-old woman with past medical history of hypertension, hyperlipidemia, and type 2 diabetes mellitus who presented to the ED on 05/02/25 with chief complaint of shortness of breath. She reported having difficulty breathing sinc e 1 day, present while resting, associated with back pain and dizziness. Patient described pain in lower back as vague, 9/10, nonradiating. Since 1 day, she has been feeling lightheaded, with difficulty in standing up, causing her to lose balance. The patient initially presented to urgent care, where she complained of nausea and lethargy and was brought to the ER by paramedics. She denied fever, chills, chest pain or other acute complaints. Patient does not use any home oxygen; while here, required supplemental oxygen at 3 LPM NC. Patient was admitted for further care. Pulmonary consultation is requested for evaluation and management of acute hypoxic respiratory failure due to pneumonia and pleural effusion. Review of Systems: 14-point review of systems negative unless otherwise noted above. Past Medical History: Hypertension, hyperlipidemia, type 2 diabetes mellitus Previous hospitalization: In 2022 for influenza Past Surgical History: Hip replacement surgery and 2 sections Medications: Reviewed. Allergies: Penicillins Family History: No family history of premature CAD. No family history of lung disorders. Social History: Former smoker. Quit smoking in 2008, [id number] smoking history. No alcohol or illicit drug use. Allergies: Coded Allergies: Penicillins (Verified Allergy, Unknown, 03/30/24) Current Medications Current Medications Medications (Trade) Dose Ordered Sig/Mis Route PRN Reason Start Time Stop Time Status Last Admin Enoxaparin Sodium (Lovenox) 40 mg DAILY SC 05/03/25 00:15 05/03/25 00:44 DC Atorvastatin Calcium (Lipitor) 20 mg HS PO 05/03/25 22:00 Azithromycin 250 ml @ 125 mls/hr DAILY IV 05/03/25 10:00 05/03/25 00:40 DC Ceftriaxone Sodium 50 ml @ 100 mls/hr DAILY@09 IV 05/04/25 09:00 Levalbuterol HCl (Xopenex Medneb) 1.25 mg Q6HR NEB 05/03/25 06:00 05/03/25 17:32 Ipratropium [place] (Atrovent Medneb) 0.5 mg Q6HWA NEB 05/03/25 06:00 05/03/25 17:32 Furosemide (Lasix Injection) 20 mg BIDD IV 05/03/25 06:00 05/03/25 10:18 DC 05/03/25 10:04 Pantoprazole Sodium (Protonix) 40 mg DAILY IV 05/03/25 10:00 Sodium Chloride 1,000 ml @ 60 mls/hr [id number] IV 05/03/25 00:45 05/03/25 10:18 DC Enoxaparin Sodium (Lovenox) 30 mg DAILY SC 05/03/25 10:00 05/03/25 01:21 DC Doxycycline Hyclate 100 ml @ 50 mls/hr Q12H IV 05/03/25 22:00 Methylprednisolone Sodium Succinate (Solu Medrol) 40 mg BID IV 05/03/25 10:00 05/03/25 10:05 Enoxaparin Sodium (Lovenox) 80 mg Q12HR SC 05/03/25 10:00 05/03/25 10:05 Diagnostic Test (Pha) (Accu-Chek Comfort Curve T) 1 strip ACHS 05/03/25 07:00 05/03/25 18:15 Insulin Human Regular (InsuLIN R) ACHS SC 05/03/25 07:00 05/03/25 18:18 Dextrose 50 ml UD PRN IV Blood Sugar LESS THAN 60 05/03/25 01:45 Amiodarone HCL/ Dextrose 200 ml @ 16.66 mls/ hr Q12H IV 05/03/25 21:00 05/03/25 21:16 Vital Signs Vital Signs Date Time Temp Pulse Resp B/P (MAP) Pulse Ox O2 Delivery O2 Flow Rate FiO2 05/03/25 19:00 136 20 106/82 (90) 95 05/03/25 17:32 Nasal Cannula* 2 28 05/03/25 16:00 97.5 97.5 Physical Exam Gen.: Patient lying in bed in no apparent distress. On supplemental oxygen. Head: Normocephalic, atraumatic. Eyes: EOMI/PERRLA. Ears: Normal hearing. Normal anatomy. Neck/trachea: Trachea midline, supple. Nose: Normal external anatomy. Mouth: Moist mucous membranes. Chest: Decreased air entry bilaterally. No wheezing or rhonchi. Cardiovascular: Positive S1, positive S2. Regular rate and rhythm. Abdomen: Positive bowel sounds in all 4 quadrants. Soft, non-tender, non- distended. : Deferred. Rectal: Deferred. Skin: Warm, dry. Intact. Extremities: 2+ radial pulses bilaterally. No lower extremity edema. Neuro: Awake, alert, oriented x3. No gross motor or sensory deficits. Cranial nerves II through XII intact. Gait not assessed. Labs/Diagnostic Data Labs Test 05/03/25 18:13 05/03/25 08:15 05/03/25 06:23 05/03/25 02:56 Range/Units POC Glucose 166 H 70-106 mg/dl Lactic Acid Level 1.7 0.4-2.0 mmol/L White Blood Count 4.0 #L 4.4-10.8 10^3/uL Red Blood Count 4.51 4.0-5.20 10^6/uL Hemoglobin 12.9 12.2-16.2 g/dL Hematocrit 41.2 # 36.0-46.0 % Mean Corpuscular Volume 91.4 80.0-100.0 fL Mean Corpuscular Hemoglobin 28.7 28.0-32.0 pg Mean Corpuscular Hemoglobin Concent 31.4 L 32.0-36.0 g/dL Red Cell Distribution Width 16.9 H 11.8-14.3 % Platelet Count 247 140-450 10^3/uL Mean Platelet Volume 7.7 6.9-10.8 fL Neutrophils (%) (Auto) 83.8 H 37.0-80.0 % Lymphocytes (%) (Auto) 14.7 10.0-50.0 % Monocytes (%) (Auto) 1.2 0.0-12.0 % Eosinophils (%) (Auto) 0.1 0.0-7.0 % Basophils (%) (Auto) 0.2 0.0-2.0 % Neutrophils # (Auto) 3.4 1.6-8.6 10 ^3/uL Lymphocytes # (Auto) 0.6 0.4-5.4 10 ^3/uL Monocytes # (Auto) 0 0-1.3 10 ^3/uL Eosinophils # (Auto) 0 0-0.8 10 ^3/uL Basophils # (Auto) 0 0-0.2 10 ^3/uL Nucleated Red Blood Cells 0.6 % Sodium Level 141 136-145 mmol/L Potassium Level 4.4 3.5-5.1 mmol/L Chloride Level 108 H 98-107 mmol/L Carbon Dioxide Level 20 20-31 mmol/L Anion Gap 13 5-15 Blood Urea Nitrogen 18 9-23 mg/dL Creatinine 1.19 H 0.550-1.02 mg/dL Glomerular Filtration Rate Calc 44 >90 mL/min BUN/Creatinine Ratio 15.1 10.0-20.0 Serum Glucose 121 H 74-106 mg/dL Calcium Level 9.2 8.7-10.4 mg/dL Influenza Type A Antigen Negative Negative Influenza Type B Antigen Negative Negative SARS-CoV-2 Antigen (Rapid) Negative NEGATIVE Test 05/03/25 01:58 05/02/25 21:15 05/02/25 19:58 05/02/25 16:28 Range/Units Blood Gas Specimen Type Venous Blood Gas Sample Site Vbg - n/a Blood Gas Patient Temperature 37.0 Arterial Blood Date Drawn [id number] Daniel Test N/a Venous Blood pH 7.315 L 7.320-7.430 Venous Blood pCO2 at Patient Temp 40.8 38.0-54.0 mmHg Venous Blood pO2 at Patient Temp 39.5 23.0-48.0 mmHg Venous Blood HCO3 20.3 L 22.0-29.0 mmol/L Venous Blood Base Excess -5.5 L -2.0-3.0 mmol/L Blood Gas Liter Flow 2.00 Blood Gas Modality Vbg - n/a FiO2 % 28.0 Prothrombin Time 14.9 H 9.3-11.8 sec Prothrombin Time INR 1.46 H 0.9-1.15 Activated Partial Thromboplast Time 27.0 24.5-34.5 SEC Troponin I High Sensitivity 24 </=34 ng/L Vitamin B12 Level 787 211-911 pg/mL Vitamin D 25-Hydroxy 48.5 30.0-100 ng/mL Hemoglobin A1c 5.9 H <5.7 % A1C Phosphorus Level 4.1 2.4-5.1 mg/dL Magnesium Level 2.1 1.6-2.6 mg/dL Total Bilirubin 2.1 H 0.2-1.0 mg/dL Direct Bilirubin 0.8 H <0.3 mg/dL Aspartate Amino Transferase (AST) 66 H 13-40 U/L Alanine Aminotransferase (ALT) 37 7-40 U/L Alkaline Phosphatase 90 46-116 U/L C-Reactive Protein High Sensitivity 2.40 H <1.0 mg/dL B-Type Natriuretic Peptide 966.80 0-100 pg/mL Total Protein 7.3 5.7-8.2 g/dL Albumin 4.4 3.2-4.8 g/dL Triglycerides Level 98 < 150 mg/dL Cholesterol Level 157 < 200 mg/dL LDL Cholesterol 89 < 100 mg/dL HDL Cholesterol 50 40-59 mg/dL Lipase 23 12-53 U/L Thyroid Stimulating Hormone (TSH) 2.72 0.55-4.78 uIU/mL Test 05/02/25 06:23 Range/Units Urine Color Yellow Yellow Urine Clarity Turbid H Clear Urine pH 5.0 5.0-9.0 Urine Specific [place] 1.014 1.001-1.035 Urine Protein Negative Negative Urine Ketones Negative Negative Urine Blood 1+ H Negative /uL Urine Nitrite 1+ H Negative Urine Bilirubin Negative Negative Urine Urobilinogen Normal Negative mg/dL Urine Leukocyte Esterase 3+ Negative /uL Urine RBC 5 0 - 4 /hpf Urine Microscopic WBC 19 H 0-5 /HPF Urine Squamous Epithelial Cells Few <5 /hpf Urine Bacteria Many H None Seen /hpf Urine Hyaline Casts Mod 0 - 2 /lpf Urine Mucus Few None Seen Urine Yeast (Budding) Occasional None Seen /hpf Urine Glucose Normal Normal mg/dL Urine Opiates Screen Neg NEGATIVE Urine Fentanyl Screen Neg NEGATIVE Urine Barbiturates Screen Neg NEGATIVE Urine Phencyclidine Screen Neg NEGATIVE Urine Amphetamines Screen Neg NEGATIVE Urine Benzodiazepines Screen Neg NEGATIVE Urine Cocaine Screen Neg NEGATIVE Urine Cannabinoids Screen Neg NEGATIVE Assessment Impression: Acute hypoxic respiratory failure due to pneumonia Sepsis due to pneumonia Pneumonia, likely gram negative rods vs. gram positive cocci Right pleural effusion Atelectasis, compressive due to pleural effusion Lactic acidosis Acute on chronic combined CHF Hx of nicotine dependence Plan: Supplemental oxygen Titrate to keep O2 sats above 92%. CT chest reviewed, demonstrates: Mild cardiomegaly, moderate right and small left pleural effusions and chest wall edema. Findings could be due to CHF and/or volume overload. Moderate dependent bilateral lower lobe consolidations which could reflect passive atelectasis or pneumonia, which could be on the basis of aspiration. Mild emphysema. Mild 3-vessel calcified coronary artery disease. Tiny nonobstructing left upper pole renal calculus. Cystic lesion within the midline anterior abdominal wall, partially outside of the skin surface. CXR demonstrates right pleural effusion and basilar pulmonary airspace disease. Cardiomegaly and diffuse increased prominence of the pulmonary vasculature Continue bronchodilators. Continue antibiotics IV steroids Incentive spirometry due to atelectasis Amiodarone for atrial fibrillation Echocardiogram from 02/2024 shows LVEF 45%, grade 1 diastolic dysfunction. Repeat echocardiogram Follow up Cardiology recommendations Accu-Cheks, ISS. Diurese with Lasix as tolerated Monitor renal function. Monitor electrolytes. Supplement as necessary. Monitor ins and outs. GI prophylaxis DVT prophylaxis - Lovenox. Prognosis: Poor given patient's multiple co-morbidities. Rest of plan per hospitalist and other consultants. A total of 76 minutes of clinical care time was spent reviewing the patient record, examining the patient, making a diagnostic and therapeutic plan, d iscussing this plan with the medical personnel, following up on diagnostic studies and following the patient for clinical stability excluding any and all procedures. At least 50% of this time was spent in direct, [id number] contact. Thank you, Dr. Merino, for allowing me to participate in this patient's care. Further recommendations will depend on the patient's clinical course. Please do not hesitate to contact me if you have any questions or concerns. This medical document was created using an electronic medical record system with [employer] dictation system. Although these documentations are being carefully reviewed, there may still be some phonetic and typographical changes. The errors are purely typographical, due to imperfection on the software program, and do not reflect any compromise in the patient's medical care. Plan discussed with: Patient, Other (RN/Dr. Merino) Visit Coding Pulmonary Billing Provider: MELANIE VILLARREAL MD Date of Service if different f: May 03, 2025 Common Visit Codes: [id number] INP/OBS CARE (HIGH) MELANIE VILLARREAL MD May 03, 2025 21:59
--- NOTE | 2025-05-03 22:23 | DVH ---
CLINICAL HISTORY: Pnuemonia TECHNIQUE: CT of the chest was performed without intravenous contrast. This exam was performed accord ing to our departmental dose optimization program. Up-to-date CT equipment and radiation dose reducti on techniques are utilized as appropriate. COMPARISON: XY CHEST XRAY 1 VIEW on DOS: 05/03/25, US CHEST ULTRASOUND on DOS: 05/03/25, XY CHEST POR TABLE on DOS: 05/02/25 FINDINGS: Lower Neck: Unremarkable Axilla, Mediastinum and Sarah: No axillary or mediastinal lymphadenopathy. Limited evaluation of the sarah in the absence of intravenous contrast. Heart and Great Vessels: Mild cardiomegaly with small pericardial fluid. The thoracic aorta is rebekah l in caliber with mild calcified atherosclerotic plaque. At least mild 3-vessel calcified coronary ar josephine disease. The central pulmonary arteries are normal caliber. There is a right IJ central venous catheter in place with the tip terminating in the right atrium. Airway, Lungs and Pleura: Trachea and central airways are patent. There is mild emphysema. Moderate r ight and small left pleural effusions. There is moderate [id number]-[id number]-left dependent bilateral lower lobe consolidations. No pneumothorax. Upper Abdomen: There is a cystic lesion in the upper midline anterior abdominal wall which is partial ly outside of the skin surface measuring 3.7 x 3.3 cm on series 2, image 87. Mild thickening of the l vdu-ttnhpei-tqjo-right adrenal glands. Atrophic pancreas. Mild atrophy of the right kidney. There is a tiny nonobstructing calculus in the upper pole left kidney. Chest Wall and Osseous Structures: Multilevel thoracic spondylosis. No destructive osseous lesion. Th ere is chest wall edema. IMPRESSION: 1. Mild cardiomegaly, moderate right and small left pleural effusions and chest wall edema. Findings could be due to CHF and/or volume overload. 2. Moderate dependent bilateral lower lobe consolidations which could reflect passive atelectasis or pneumonia , which could be on the basis of aspiration. 3. Mild 3-vessel calcified coronary artery disease. 4. Tiny nonobstructing left upper pole renal calculus. 5. Cystic lesion within the midline anterior abdominal wall, partially outside of the skin surface. Correlate with clinical exam. 6. Mild emphysema. Radiation optimization: All CT scans at this facility use at least one of these dose optimization katie hniques: automated exposure control mA and/or kV adjustment per patient size (includes targeted exam s where dose is matched to clinical indication) or iterative reconstruction.
[2025-05-03] MEDS: ATORVASTATIN 20 MG TAB PO SCH (23:24)
[2025-05-03] MEDS: DOXYCYCLINE 100MG/100ML 100 ML IV SCH (23:25)
[2025-05-03] MEDS ORDERED: ACET-1881 PO (23:44)
[2025-05-04] VITALS (15 sets, daily range): BP systolic 104–123; BP diastolic 80–98; PULSE 59–145; RESP 16–21; TEMP 97.6–98.6; O2SAT 96–100
[2025-05-04 07:06] LABS: Hematocrit 40.0 % (36.0-46.0); Hemoglobin 12.8 g/dL (12.2-16.2); Mean Corpuscular Hemoglobin 28.8 pg (28.0-32.0); Mean Corpuscular Volume 90.1 fL (80.0-100.0); Nucleated Red Blood Cells % 0.7 %
[2025-05-04 07:13] LABS: Chloride 104 mmol/L (98-107); Potassium 4.3 mmol/L (3.5-5.1); Sodium 139 mmol/L (136-145)
[2025-05-04 07:14] LABS: Anion Gap 13 (5-15); Carbon Dioxide 22 mmol/L (20-31)
[2025-05-04 07:15] LABS: Calcium 9.0 mg/dL (8.7-10.4)
[2025-05-04 07:20] LABS: BUN/Creatinine Ratio 22.6 (10.0-20.0)
[2025-05-04 07:27] LABS: Glucose 143 mg/dL (74-106)
[2025-05-04 07:28] LABS: Blood Urea Nitrogen 42 mg/dL (9-23)
[2025-05-04] MEDS ORDERED: POLYETHYLENE GLYCOL 17 GM PWDR PO PRN (12:15)
[2025-05-04] MEDS: DOCUSATE SOD 100 MG CAP PO SCH (12:59)
--- NOTE | 2025-05-04 13:31 | DVHPNRES ---
Progress Note Date Seen: May 04, 2025 Resident Creating Document: MARCEL HOLLINS RESIDENT Has the PT tested + for MRSA If YES, has PT been informed?: No Medical Necessity Reason Pt with a Central, PICC or Fol: Yes Subjective Review of Systems This is an 89 year old female with past medical history of hypertension, hyperlipidemia, type 2 diabetes mellitus, presented to the ER with chief complain of shortness of breath. She reported having difficulty breathing since 1 day, present while resting, associated with back pain and dizziness. Patient describes pain in lower back as vague, 9/10, nonradiating. Since 1 day, she has been feeling lightheaded, with difficulty in standing up, causing her to lose balance. These symptoms urged her visit to the urgent care, where she started complaining of nausea and lethargy and was brought to the ER by paramedics. She denies fever, chills, sick contacts or recent travel. She does not use any home oxygen, currently saturating on 3 L oxygen. Previous hospitalization: In 2022 for influenza PMHx: Hypertension, hyperlipidemia, type 2 diabetes mellitus PSHx: Hip replacement surgery and 2 sections Social history: Quit smoking in 2008, 40 pack per year smoking history. Denies alcohol, recreational drug use. Full code, next to kin his grandson. Home medication: Eliquis, unsure of other home medication Allergic history: No known allergies ROS: 05/03/25 Patient was examined at bedside today. patient was drowsy in the morning but was fully oriented ANO x4 in the afternoon. Patient stated that she has been taking Eliquis daily and patient's heart rate has been consistently high due to her atrial fibrillation so we started her on amiodarone bolus and then continuous drip. I spoke to the patient's great grandson who is her caregiver and he states that the patient might have dementia that she has been mixing things up and recalling old memories more often these days. As per the grandson patient has been weak and fatigued for whole week and her face and feet have swollen up. He also reports that patient has been having shortness of breath and after the appointment at PCP yesterday at 2:30 a.m., patient reported she felt dizzy and was unable to walk due to shortness of breath which is why the paramedics brought her to the emergency department. I discussed the patient's condition in detail with the great grandson and he communicated understanding. 05/04/2025: Patient was seen and examined by me at the bedside today. Patient is A&O x4 today morning. She reports feeling better and that her shortness of breath has decreased. She does report of feeling tired. Patient complains that she strains likely to pass stool and has not been able to. MiraLax 17 g and docusate 100 mg has been added today. Pulmonology consult was done yesterday who suggested continuation of antibiotics and steroids. Grandson was informed regarding pulmonary doctor's decision. We will continue current management for now. Code status was discussed yesterday with patient's great grandson and patient and they set patient is full code. MRSA positive, mupirocin for nurse added today. Isolation precautions also added today. Objective vital signs Vital Sign Date Time Temp Pulse Resp B/P (MAP) Pulse Ox O2 Delivery O2 Flow Rate FiO2 05/04/25 12:32 145 16 100 05/04/25 12:24 Nasal Cannula* 2 28 05/04/25 09:00 97.6 104/84 (91) 97.6 Total Intake and Output 05/03/25 05/03/25 05/04/25 15:00 23:00 07:00 Intake Total 200 ml 133.32 ml 220 ml Output Total 1150 ml Balance 200 ml 133.32 ml -930 ml medications Current Medications Medications Dose Ordered Sig/Mis Route Start Time Stop Time Status Last Admin Dose Admin Atorvastatin Calcium 20 mg HS PO 05/03/25 22:00 05/03/25 23:24 20 MG Ceftriaxone Sodium 50 ml @ 100 mls/hr DAILY@09 IV 05/04/25 09:00 05/04/25 09:19 100 MLS/HR Levalbuterol HCl 1.25 mg Q6HR NEB 05/03/25 06:00 05/04/25 12:23 1.25 MG Ipratropium [place] 0.5 mg Q6HWA NEB 05/03/25 06:00 05/04/25 12:23 0.5 MG Pantoprazole Sodium 40 mg DAILY IV 05/03/25 10:00 05/04/25 09:20 40 MG Doxycycline Hyclate 100 ml @ 50 mls/hr Q12H IV 05/03/25 22:00 05/04/25 11:18 50 MLS/HR Methylprednisolone Sodium Succinate 40 mg BID IV 05/03/25 10:00 05/04/25 09:20 40 MG Enoxaparin Sodium 80 mg Q12HR SC 05/03/25 10:00 05/04/25 09:21 80 MG Diagnostic Test (Pha) 1 strip ACHS 05/03/25 07:00 05/04/25 11:19 1 STRIP Insulin Human Regular ACHS SC 05/03/25 07:00 05/04/25 12:59 2 UNITS Dextrose 50 ml UD PRN IV 05/03/25 01:45 Amiodarone HCL/ Dextrose 200 ml @ 16.66 mls/ hr Q12H IV 05/03/25 21:00 05/04/25 09:19 16.66 MLS/HR Polyethylene Glycol 17 gm DAILYPRN PRN PO 05/04/25 12:15 Docusate Sodium 100 mg DAILY PO 05/04/25 12:15 05/04/25 12:59 100 MG Examination General: Patient alert and oriented in person, place and time. Patient following commands. HEENT: Normocephalic, atraumatic, moist mucous membranes, on 3 L/min of oxygen via nasal cannula Respiratory/pulmonary: Reduced breath sounds in right lower lung romero. Cardiovascular: Tachycardia. Normal heart sounds S1 and S2 with no associated murmurs Abdomen: Abdomen nondistended, there is no pain to palpation in any of the abdominal quadrants, no palpable masses. Extremities: No pitting edema noted on examination, peripheral Pulses 3+ Radial (R). 3+ Radial (L). 3+ Dorsalis pedis (R). 3+ Dorsalis pedis(L) Skin: No rashes or pruritus, there is no sacral edema present at this time. Neurological: Intact cranial nerves with no focal neurologic deficits laboratory and microbiology Laboratory Tests 05/04/25 06:16 Test 05/04/25 06:16 Range/Units Serum Glucose 143 H 74-106 mg/dL Microbiology Date/Time Source Procedure Growth Status 05/03/25 06:23 Voided Urine Urine Culture - Preliminary Resulted 05/03/25 06:23 Blood Blood Culture - Preliminary NO GROWTH AFTER 24 HOURS OF INCUBATION. Resulted Labs and/or images reviewed: Labs reviewed by me, Image(s) reviewed by me Problem List/Assessment/Plan Problem List/Assessment/Plan #Sepsis due to Community-acquired pneumonia # rule out Acute exacerbation of COPD #Acute hypoxic respiratory failure #Right moderate pleural effusion -CXR revealed right lower lobe consolidation/ pleural effusion -Tachycardia, tachypnea, lactic acidosis -Sputum culture, blood culture, MRSA, Gram stain ordered -IV ceftriaxone 1 g, IV doxycycline 100 mg b.i.d. (QTC prolongation) -Restricted fluid resuscitation in context of exacerbation of heart failure -Oxygen supplementation currently on 3 L; taper down as tolerated -Nebulization therapy with albuterol and ipratropium -Prednisolone 40 mg IV b.i.d. -pulmonology consult placed for pleural effusion on the right lung, suggest continuation of antibiotics and steroids #Acute exacerbation of Combined chronic diastolic, systolic heart failure HFmrEF -Echocardiogram from 02/2024 shows LVEF 45%, grade 1 diastolic dysfunction. Repeat echocardiogram -CXR revealed right lower lobe consolidation/ pleural effusion -Started on furosemide 20 mg IV b.i.d. 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 Burns Plan discussed with: Patient, Other (great grandson) Date of Service: May 04, 2025 Billing Provider: YUMIKO BURNS MD Common Visit Codes: [id number] INP/OBS CARE(HIGH) Addendum Addendum Addendum I was physically present for the baker portions of the service provided to patient by THE RESIDENT. I have reviewed the documentation, discussed the case with resident and agree with the resident's documentation except as noted. Also the patient's clinical case was discussed with the patient's nurse. This medical document was created using an electronic medical record system with computerized dictation system. Although this document has been carefully reviewed, there might still be some phonetic and typographical errors. These areas are purely typographical due to imperfections of the software programs, and do not reflect any compromise in the patient's medical care. Late signature. MARCEL HOLLINS May 04, 2025 13:31 YUMIKO BURNS MD May 06, 2025 11:41
--- NOTE | 2025-05-04 15:12 | DVHPN2 ---
Progress Note - Dictate Date Seen: May 04, 2025 Has the PT tested + for MRSA If YES, has PT been informed?: No Medical Necessity Reason Pt with a Central, PICC or Fol: Yes vital signs Vital Sign Date Time Temp Pulse Resp B/P (MAP) Pulse Ox O2 Delivery O2 Flow Rate FiO2 05/04/25 13:00 98.6 122 17 105/89 (94) 97 98.6 05/04/25 12:24 Nasal Cannula* 2 28 Total Intake and Output 05/03/25 05/03/25 05/04/25 15:00 23:00 07:00 Intake Total 200 ml 133.32 ml 220 ml Output Total 1150 ml Balance 200 ml 133.32 ml -930 ml medications Current Medications Medications Dose Ordered Sig/Mis Route Start Time Stop Time Status Last Admin Dose Admin Atorvastatin Calcium 20 mg HS PO 05/03/25 22:00 05/03/25 23:24 20 MG Ceftriaxone Sodium 50 ml @ 100 mls/hr DAILY@09 IV 05/04/25 09:00 05/04/25 09:19 100 MLS/HR Levalbuterol HCl 1.25 mg Q6HR NEB 05/03/25 06:00 05/04/25 12:23 1.25 MG Ipratropium [place] 0.5 mg Q6HWA NEB 05/03/25 06:00 05/04/25 12:23 0.5 MG Pantoprazole Sodium 40 mg DAILY IV 05/03/25 10:00 05/04/25 09:20 40 MG Doxycycline Hyclate 100 ml @ 50 mls/hr Q12H IV 05/03/25 22:00 05/04/25 11:18 50 MLS/HR Methylprednisolone Sodium Succinate 40 mg BID IV 05/03/25 10:00 05/04/25 09:20 40 MG Enoxaparin Sodium 80 mg Q12HR SC 05/03/25 10:00 05/04/25 09:21 80 MG Diagnostic Test (Pha) 1 strip ACHS 05/03/25 07:00 05/04/25 11:19 1 STRIP Insulin Human Regular ACHS SC 05/03/25 07:00 05/04/25 12:59 2 UNITS Dextrose 50 ml UD PRN IV 05/03/25 01:45 Amiodarone HCL/ Dextrose 200 ml @ 16.66 mls/ hr Q12H IV 05/03/25 21:00 05/04/25 09:19 16.66 MLS/HR Polyethylene Glycol 17 gm DAILYPRN PRN PO 05/04/25 12:15 Docusate Sodium 100 mg DAILY PO 05/04/25 12:15 05/04/25 12:59 100 MG Mupirocin 1 applic BID EACHNOSTRI 05/04/25 22:00 05/09/25 21:59 laboratory and microbiology Laboratory Tests 05/04/25 06:16 Test 05/04/25 06:16 Range/Units Serum Glucose 143 H 74-106 mg/dL Assessment/Plan Impression Acute hypoxemic respiratory failure Pleural effusions Pneumonia CHF Patient seen and examined Events Low oxygen requirements On 2 liters nasal cannula Oxygen at baseline No acute events Labs and imaging reviewed Management Supplemental oxygen Titrate to maintain sats 90% or above Incentive spirometry Continue antibiotics F/u cultures Bronchodilators Diurese Monitor renal function Monitor electrolytes Supplement as needed DVT prophylaxis Plan discussed with: Patient KARIE BERMEO MD May 04, 2025 15:12
--- NOTE | 2025-05-04 16:46 | DVHSR ---
APPROVED REPORT EXAM: Two-dimensional and M-mode echocardiogram with Doppler and color Doppler. Blood Pressure: 123/89 mmHg INDICATION presyncope RISK FACTORS Height: 5'8, Weight: 182 DIMENSIONS LVDd4.3 (3.8-5.7cm)LA (2D)3.5 (1.9-4.0cm)Aortic Root2.9 (2.0-3.7cm) LVDs3.6 (2.5-4.0cm)LA (MM) (1.9-4.0cm)Aortic Cusp Exc1.3 (1.5-2.0cm) EF (%) 31.0 (55-70%)Rt. Atrium5.5 (1.9-4.0cm)Asc. Aorta cm IVSd0.6 (0.7-1.1cm)RV (D) (1.8-2.4cm) PWd0.6 (0.7-1.1cm) Mitral Valve MitralMitral Stenosis E wave1.12m/sMV Mean GR.mmHg A wavem/sMV Peak GR.101mmHg E/A ratio0.02D MVAcm2 DECEL [id number] 1/2 Tim[place] Aortic Valve Aortic ValveAortic Stenosis V10.61m/Fly Mean GR.mmHg V20.74m/Fly Peak GR.2mmHg LVOT Diameter2.0 (1.8-2.4cm)Doppler AVA2.59cm2 Tricuspid Valve TR Velocity2.82m/s [id number] Other Information Technically limited study due to pt HR 120-150s Conclusion Technically good study. Atrial fibrillation. Left atrial enlargement. Aortic root enlargement. LV enlargement. Valves are normal. EF of 20% with global hypokinesis. Diminished RV function. Severe TR. Moderate MR Moderate MR. Moderate TR. No pericardial effusion masses or vegetations.
[2025-05-04] MEDS: ACETAMINOPHEN 325 MG TAB PO PRN (18:16)
[2025-05-04] MEDS: MUPIROCIN 2% OINT 15gm or 22gm FOR MRSA NARES EACHNOSTRI SCH (22:00)
[2025-05-05] VITALS (17 sets, daily range): BP systolic 110–138; BP diastolic 71–90; PULSE 65–124; RESP 16–20; TEMP 97.6–98.9; O2SAT 97–100
[2025-05-05 05:45] LABS: Hematocrit 39.2 % (36.0-46.0); Hemoglobin 12.7 g/dL (12.2-16.2); Mean Corpuscular Hemoglobin 29.1 pg (28.0-32.0); Mean Corpuscular Volume 89.6 fL (80.0-100.0); Nucleated Red Blood Cells % 0.6 %
[2025-05-05 05:56] LABS: Chloride 103 mmol/L (98-107); Potassium 4.1 mmol/L (3.5-5.1)
[2025-05-05 05:57] LABS: Anion Gap 12 (5-15); Calcium 9.1 mg/dL (8.7-10.4)
[2025-05-05 05:59] LABS: Carbon Dioxide 20 mmol/L (20-31); Sodium 135 mmol/L (136-145)
[2025-05-05 06:02] LABS: BUN/Creatinine Ratio 13.5 (10.0-20.0); Blood Urea Nitrogen 22 mg/dL (9-23)
[2025-05-05 06:25] LABS: Glucose 130 mg/dL (74-106)
[2025-05-05] MEDS ORDERED: VANCOMYCIN PER PHARMACY 0 MG IV SCH (11:15)
[2025-05-05] MEDS ORDERED: AMIODARONE HCL 200 MG TAB PO SCH (13:00)
[2025-05-05] MEDS: VANCOMYCIN 1.25GM/250ML 250 ML IV ONE (13:16)
[2025-05-05] MEDS: FUROSEMIDE 20 MG/2 ML VIAL IV ONE (13:16)
[2025-05-05] MEDS: LACTULOSE 20Gm/30ML SOLN PO ONE (14:01)
[2025-05-05] MEDS: AMIODARONE 360mg/200mL PREMIX 200 ML IV ONE (14:01)
[2025-05-05] MEDS: predniSONE 20 MG TAB PO SCH (14:01)
--- NOTE | 2025-05-05 14:09 | DVHPN2 ---
Progress Note - Dictate Date Seen: May 05, 2025 Has the PT tested + for MRSA If YES, has PT been informed?: No Medical Necessity Reason Pt with a Central, PICC or Fol: No vital signs Vital Sign Date Time Temp Pulse Resp B/P (MAP) Pulse Ox O2 Delivery O2 Flow Rate FiO2 05/05/25 13:16 113/85 05/05/25 13:00 97.9 82 18 99 97.9 05/05/25 11:49 Nasal Cannula* 2 28 Total Intake and Output 05/04/25 05/04/25 05/05/25 15:00 23:00 07:00 Intake Total 319.98 ml 633.28 ml 1060 ml Output Total 250 ml 800 ml Balance 319.98 ml 383.28 ml 260 ml medications Current Medications Medications Dose Ordered Sig/Mis Route Start Time Stop Time Status Last Admin Dose Admin Atorvastatin Calcium 20 mg HS PO 05/03/25 22:00 05/04/25 21:30 20 MG Ceftriaxone Sodium 50 ml @ 100 mls/hr DAILY@09 IV 05/04/25 09:00 05/05/25 09:37 100 MLS/HR Levalbuterol HCl 1.25 mg Q6HR NEB 05/03/25 06:00 05/05/25 11:49 1.25 MG Ipratropium [place] 0.5 mg Q6HWA NEB 05/03/25 06:00 05/05/25 11:49 0.5 MG Doxycycline Hyclate 100 ml @ 50 mls/hr Q12H IV 05/03/25 22:00 05/05/25 11:00 50 MLS/HR Enoxaparin Sodium 80 mg Q12HR SC 05/03/25 10:00 05/05/25 09:37 80 MG Diagnostic Test (Pha) 1 strip ACHS 05/03/25 07:00 05/05/25 11:43 1 STRIP Insulin Human Regular ACHS SC 05/03/25 07:00 05/05/25 11:48 3 UNITS Dextrose 50 ml UD PRN IV 05/03/25 01:45 Polyethylene Glycol 17 gm DAILYPRN PRN PO 05/04/25 12:15 Docusate Sodium 100 mg DAILY PO 05/04/25 12:15 05/05/25 09:37 100 MG Mupirocin 1 applic BID EACHNOSTRI 05/04/25 22:00 10/23/25 21:59 Acetaminophen 650 mg Q6HP PRN PO 05/04/25 17:45 05/04/25 18:16 650 MG Vancomycin HCl 0 ml @ 0 mls/hr UD IV 05/05/25 11:15 UNV Prednisone 40 mg DAILY PO 05/05/25 13:00 05/05/25 14:01 40 MG Pantoprazole Sodium 40 mg DAILY@0600 PO 05/06/25 06:00 Melatonin 5 mg PRN PO 05/05/25 13:45 UNV laboratory and microbiology Laboratory Tests 05/05/25 05:02 Test 05/05/25 05:02 Range/Units Serum Glucose 130 H 74-106 mg/dL Assessment/Plan Impression Acute hypoxemic respiratory failure Pleural effusions Pneumonia CHF Patient seen and examined Events Low oxygen requirements On 2 liters nasal cannula No acute events No acute events Labs and imaging reviewed CT of the chest shows moderate right pleural effusions Management Supplemental oxygen Titrate to maintain sats 90% or above Incentive spirometry Continue antibiotics F/u cultures Bronchodilators Diurese Monitor renal function Monitor electrolytes Supplement as needed DVT prophylaxis Plan discussed with: Patient KARIE BERMEO MD May 05, 2025 14:09
--- NOTE | 2025-05-05 16:01 | DVHPNRES ---
Progress Note Date Seen: May 05, 2025 Resident Creating Document: HUNTER WARD RESIDENT Has the PT tested + for MRSA If YES, has PT been informed?: No Medical Necessity Reason Pt with a Central, PICC or Fol: No Subjective Review of Systems This is an 89 year old female with past medical history of hypertension, hyperlipidemia, type 2 diabetes mellitus, presented to the ER with chief complain of shortness of breath. She reported having difficulty breathing since 1 day, present while resting, associated with back pain and dizziness. Patient describes pain in lower back as vague, 9/10, nonradiating. Since 1 day, she has been feeling lightheaded, with difficulty in standing up, causing her to lose balance. These symptoms urged her visit to the urgent care, where she started complaining of nausea and lethargy and was brought to the ER by paramedics. She denies fever, chills, sick contacts or recent travel. She does not use any home oxygen, currently saturating on 3 L oxygen. Previous hospitalization: In 2022 for influenza PMHx: Hypertension, hyperlipidemia, type 2 diabetes mellitus PSHx: Hip replacement surgery and 2 sections Social history: Quit smoking in 2008, 40 pack per year smoking history. Denies alcohol, recreational drug use. Full code, next to kin his grandson. Home medication: Eliquis, unsure of other home medication Allergic history: No known allergies ROS: 05/03/25 Patient was examined at bedside today. patient was drowsy in the morning but was fully oriented ANO x4 in the afternoon. Patient stated that she has been taking Eliquis daily and patient's heart rate has been consistently high due to her atrial fibrillation so we started her on amiodarone bolus and then continuous drip. I spoke to the patient's great grandson who is her caregiver and he states that the patient might have dementia that she has been mixing things up and recalling old memories more often these days. As per the grandson patient has been weak and fatigued for whole week and her face and feet have swollen up. He also reports that patient has been having shortness of breath and after the appointment at PCP yesterday at 2:30 a.m., patient reported she felt dizzy and was unable to walk due to shortness of breath which is why the paramedics brought her to the emergency department. I discussed the patient's condition in detail with the great grandson and he communicated understanding. 05/04/2025: Patient was seen and examined by me at the bedside today. Patient is A&O x4 today morning. She reports feeling better and that her shortness of breath has decreased. She does report of feeling tired. Patient complains that she strains likely to pass stool and has not been able to. MiraLax 17 g and docusate 100 mg has been added today. Pulmonology consult was done yesterday who suggested continuation of antibiotics and steroids. Grandson was informed regarding pulmonary doctor's decision. We will continue current management for now. Code status was discussed yesterday with patient's great grandson and patient and they set patient is full code. MRSA positive, mupirocin for nurse added today. Isolation precautions also added today. 05/05/2025-patient was seen today at bedside, patient reported feeling better today. Labs and chart reviewed. Uterine culture revealed E coli, sensitive to ceftriaxone, MRSA nares positive. Echo 2D revealed LVEF 20% with global hypokinesia, diminished RV function, severe TR, moderate MR. Left atrial enlargement. Patient reported constipation, ordered lactulose and also melatonin at night PRN for insomnia. Ordered cardiology consult for further evaluation and care of HFrEF. Ordered Lasix. Spoke to paper cone maker Dr. BERMEO recommended no thoracentesis at this moment, diuresis. Spoke to patient's daughter at bedside. Ordered IV Lasix 20 mg b.i.d. and carvedilol 3.125 mg p.o. b.i.d. Objective vital signs Vital Sign Date Time Temp Pulse Resp B/P (MAP) Pulse Ox O2 Delivery O2 Flow Rate FiO2 05/05/25 13:16 113/85 05/05/25 13:00 97.9 82 18 99 97.9 05/05/25 11:49 Nasal Cannula* 2 28 Total Intake and Output 05/04/25 05/04/25 05/05/25 15:00 23:00 07:00 Intake Total 319.98 ml 633.28 ml 1060 ml Output Total 250 ml 800 ml Balance 319.98 ml 383.28 ml 260 ml medications Current Medications Medications Dose Ordered Sig/Mis Route Start Time Stop Time Status Last Admin Dose Admin Atorvastatin Calcium 20 mg HS PO 05/03/25 22:00 05/04/25 21:30 20 MG Ceftriaxone Sodium 50 ml @ 100 mls/hr DAILY@09 IV 05/04/25 09:00 05/05/25 09:37 100 MLS/HR Levalbuterol HCl 1.25 mg Q6HR NEB 05/03/25 06:00 05/05/25 11:49 1.25 MG Ipratropium [place] 0.5 mg Q6HWA NEB 05/03/25 06:00 05/05/25 11:49 0.5 MG Doxycycline Hyclate 100 ml @ 50 mls/hr Q12H IV 05/03/25 22:00 05/05/25 11:00 50 MLS/HR Enoxaparin Sodium 80 mg Q12HR SC 05/03/25 10:00 05/05/25 09:37 80 MG Diagnostic Test (Pha) 1 strip ACHS 05/03/25 07:00 05/05/25 11:43 1 STRIP Insulin Human Regular ACHS SC 05/03/25 07:00 05/05/25 11:48 3 UNITS Dextrose 50 ml UD PRN IV 05/03/25 01:45 Polyethylene Glycol 17 gm DAILYPRN PRN PO 05/04/25 12:15 Docusate Sodium 100 mg DAILY PO 05/04/25 12:15 05/05/25 09:37 100 MG Mupirocin 1 applic BID EACHNOSTRI 05/04/25 22:00 05/09/25 21:59 Acetaminophen 650 mg Q6HP PRN PO 05/04/25 17:45 05/04/25 18:16 650 MG Vancomycin HCl 0 ml @ 0 mls/hr UD IV 05/05/25 11:15 Prednisone 40 mg DAILY PO 05/05/25 13:00 05/05/25 14:01 40 MG Pantoprazole Sodium 40 mg DAILY@0600 PO 05/06/25 06:00 Melatonin 5 mg HS PRN PO 05/05/25 22:00 Examination General: Patient is awake and alert HEENT: Normocephalic, atraumatic, moist mucous membranes, Respiratory/pulmonary: Bilateral lung crackles+, mildly diminished breath sound bilaterally Cardiovascular: Tachycardia. Normal heart sounds S1 and S2 with no associated murmurs Abdomen: Cyst on the anterior abdominal wall Abdomen nondistended, there is no pain to palpation in any of the abdominal quadrants, no palpable masses. Extremities: No pitting edema noted on examination, peripheral Pulses 3+ Radial (R). 3+ Radial (L). 3+ Dorsalis pedis (R). 3+ Dorsalis pedis(L) Skin: No rashes or pruritus, there is no sacral edema present at this time. Neurological: Intact cranial nerves with no focal neurologic deficits laboratory and microbiology Laboratory Tests 05/05/25 05:02 Test 05/05/25 05:02 Range/Units Serum Glucose 130 H 74-106 mg/dL Microbiology Date/Time Source Procedure Growth Status 05/03/25 06:23 Voided Urine Urine Culture - Final Escherichia coli Complete 05/03/25 06:23 Blood Blood Culture - Preliminary NO GROWTH AFTER 48 HOURS OF INCUBATION. Resulted 05/03/25 05:30 Nose MRSA Screen - Final Methicillin Resistant S.aureus Complete Labs and/or images reviewed: Labs reviewed by me, Image(s) reviewed by me Problem List/Assessment/Plan Problem List/Assessment/Plan Assessment and plan #Sepsis due to Pneumonia, likely gram negative rods vs. gram positive cocci #Acute hypoxic respiratory failure due to pneumonia #Right moderate pleural effusion #Atelectasis, compressive due to pleural effusion #Lactic acidosis -CXR revealed right lower lobe consolidation/ pleural effusion -Tachycardia, tachypnea, lactic acidosis -blood culture no growth so far -pending sputum culture -on IV ceftriaxone 1 g, with doxycycline as prescribed (patient has QTC prolongation) -ordered vancomycin -Restricted fluid resuscitation in context of exacerbation of heart failure -oxygen tapering, plan is to take off oxygen if tolerating well and breathing well in room air maintain oxygen saturation more than 90% -Nebulization therapy with albuterol and ipratropium - MRSA positive, mupirocin as prescribed - isolation precautions #Acute exacerbation of HFrEF, LVEF 20%, global hypokinesia # severe TR, moderate MR. Left atrial enlargement. -previous Echocardiogram from 02/2024 shows LVEF 45%, grade 1 diastolic dysfunction. Repeat echocardiogram -CXR revealed right lower lobe consolidation/ pleural effusion -IV Lasix 20 mg b.i.d. -ordered carvedilol 3.125 mg p.o. b.i.d. Ordered cardiology consult for further evaluation and care -Strict I&O #UTI -urine analysis showed urine clarity turbid, blood +1, nitrites +1, leukocyte esterase 3+, RBC 5, WBC 19, bacteria many, squamous epithelial cells few, mucus few, hyaline casts moderate, urine yeast budding occasional -urine culture E coli -IV ceftriaxone 1 g daily #Presyncope, rule out cardiac etiology -Echocardiogram-LVEF 20%, global hypokinesia -Orthostatic Vitals ordered -Monitor on telemetry for life-threatening arrhythmias #Paroxysmal atrial fibrillation with RVR -On apixaban at home -continue amiodarone as prescribed -continue Lovenox as prescribed #Diabetes mellitus type 2,A1c 5.9 -Sliding scale insulin -Monitor blood glucose -Diabetes education -Diabetic diet #Transaminitis -Hepatitis panel -Liver ultrasound shows gallbladder wall thickening, no gallstones visualized #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) -Avoiding nephrotoxins like NSAIDS, contrast #Hx of nicotine dependence Diet: Cardiac DVT prophylaxis: Lovenox GI prophylaxis Protonix Code status:Full code Patient's status and plan discussed with the patient and daughter at bedside, RN Case discussed with Dr.Alhurani RN, daughter at bedside Plan discussed with: Patient, Daughter, Other (RN) My Orders My Orders Orders - HUNTER WARD Procedure Category Date Status Time Prednisone Tablet PHA 05/05/25 In Process 13:00 Pantoprazole Tablet PHA 05/06/25 In Process (Protonix Tablet) 06:00 Communication Order ORDERS 05/05/25 Transmitted 13:01 Melatonin (Melatonin) PHA 05/05/25 In Process 22:00 Addendum Addendum Addendum I was physically present for the baker portions of the service provided to patient by THE RESIDENT. I have reviewed the documentation, discussed the case with resident and agree with the resident's documentation except as noted. Also the patient's clinical case was discussed with the patient's nurse. This medical document was created using an electronic medical record system with computerized dictation system. Although this document has been carefully reviewed, there might still be some phonetic and typographical errors. These areas are purely typographical due to imperfections of the software programs, and do not reflect any compromise in the patient's medical care. Late signature. Date of Service: May 05, 2025 Billing Provider: YUMIKO BURNS MD Common Visit Codes: [id number] INP/OBS CARE(HIGH) HUNTER WARD May 05, 2025 16:01 YUMIKO BURNS MD May 06, 2025 11:43
[2025-05-05] MEDS: FUROSEMIDE 20 MG/2 ML VIAL IV SCH (17:15)
--- NOTE | 2025-05-05 17:46 | DVHINCON2 ---
Date Seen: May 05, 2025 Referring Physician Tamika Reason for Consultation cardiomyopathy History of Present Illness 81-year-old female with PMH for CHF, cardiomyopathy, paroxysmal atrial fibrillation/flutter on Eliquis, HTN, HLD, diabetes presents to the hospital with worsening shortness of breath. Patient is also having episodes of dizziness and fatigue. Upon evaluation patient had CXR showing right lower lobe consolidation/pleural effusion, patient admitted with sepsis pneumonia. Troponin negative. BNP 966. Initial creatinine 1.30 trending up to 1.86 now downtrending. EKG reviewed and shows atrial fibrillation with RVR at 137 beats per minute, RBBB, no acute ST and T-wave abnormality. Patient with history of cardiomyopathy with EF 40% 02/28/2024. Upon further evaluation with echo this admission patient found to have worsening cardiomyopathy with EF 20%, global hypokinesis, severe TR moderate MR. Cardiology consulted. Past Medical History As stated above Past Surgical History As stated above Family History: Diabetes mellitus G8 BROTHER FH: cancer Allergies: Coded Allergies: Penicillins (Verified Allergy, Unknown, 03/30/24) Home Meds Reported Medications Acetaminophen (Acetaminophen) 325 Mg Tab, 325 MG PO PRN, MG 0 Refills 05/03/25 Current Medications Current Medications Medications (Trade) Dose Ordered Sig/Mis Route PRN Reason Start Time Stop Time Status Last Admin Mupirocin (Bactroban 2% Ointment) 1 applic BID EACHNOSTRI 05/04/25 22:00 05/09/25 21:59 Acetaminophen (Tylenol Tablet) 650 mg Q6HP PRN PO MODERATE PAIN (4-6 PAIN SCALE) 05/04/25 17:45 05/04/25 18:16 Vancomycin HCl 0 ml @ 0 mls/hr UD IV 05/05/25 11:15 Amiodarone HCl (Cordarone Tablet) 200 mg Q12HR PO 05/05/25 13:00 05/05/25 13:40 DC Prednisone 40 mg DAILY PO 05/05/25 13:00 05/05/25 16:20 DC 05/05/25 14:01 Pantoprazole Sodium (Protonix Tablet) 40 mg DAILY@0600 PO 05/06/25 06:00 Melatonin (Melatonin) 5 mg HS PRN PO 05/05/25 22:00 Furosemide (Lasix Injection) 20 mg BIDD IV 05/05/25 17:15 UNV Review of Systems Constitutional: No: Fever, Chills, Sweats, Weakness, Malaise, Other Eyes: No: Pain, Vision change, Conjunctivae inflammation, Eyelid inflammation, Other, Redness ENT: No: Ear pain, Ear discharge, Nose pain, Nose discharge, Nose congestion, Mouth pain, Mouth swelling, Throat pain, Throat swelling, Other Respiratory: No: Cough, Dry, Shortness of breath, SOB with exertion, Wheezing, Hemoptysis, Pleuritic Pain, Sputum, Wheezing, Other Cardiovascular: ; No: Chest Pain Palpitations, Orthopnea, Paroxysmal Noc. Dyspnea, Edema, Lt Headedness, Other Gastrointestinal: No: Nausea, Vomiting, Abdominal Pain, Diarrhea, Constipation, Melena, Hematochezia, Other Genitourinary: No Dysuria, No Frequency, No Incontinence, No Hematuria, No Retention, No Other Musculoskeletal: neck pain; No: other, shoulder pain, arm pain, back pain, hand pain, leg pain, foot pain Skin: No: Rash, Lesions, Jaundice, Bruising, Other Neurological: Other (Dizziness, headache.); No: Weakness, Numbness, Incoordination, Change in speech, Confusion, Seizures Vital Signs Vital Signs Date Time Temp Pulse Resp B/P (MAP) Pulse Ox O2 Delivery O2 Flow Rate FiO2 05/05/25 13:16 113/85 05/05/25 13:00 97.9 82 18 99 97.9 05/05/25 11:49 Nasal Cannula* 2 28 Physical Exam General appearance: Patient is well-developed, well-nourished, in mild acute distress. HEENT: Exam shows: Normocephalic, atraumatic, PERRLA, EOMI Neck: Supple, no bruits Chest: Equal chest excursion bilaterally. Breath sounds crackles/rales. Heart: Rhythm: Regular rate; no murmur or gallop Abdomen: Exam shows: Soft, nontender, nondistended Musculoskeletal: No clubbing, no cyanosis, trace lower extremity edema Dermatology: Skin warm, moist. Neurological: Exam shows: Alert and oriented x4, normal speech Available prior records, labs, EKG, rhythm strips reviewed and interpreted Labs/Diagnostic Data Labs Test 05/05/25 16:48 05/05/25 05:02 05/03/25 08:05/03/25 02:56 Range/Units POC Glucose 135 H 70-106 mg/dl White Blood Count 6.6 4.4-10.8 10^3/uL Red Blood Count 4.37 4.0-5.20 10^6/uL Hemoglobin 12.7 12.2-16.2 g/dL Hematocrit 39.2 36.0-46.0 % Mean Corpuscular Volume 89.6 80.0-100.0 fL Mean Corpuscular Hemoglobin 29.1 28.0-32.0 pg Mean Corpuscular Hemoglobin Concent 32.4 32.0-36.0 g/dL Red Cell Distribution Width 16.7 H 11.8-14.3 % Platelet Count 214 140-450 10^3/uL Mean Platelet Volume 7.9 6.9-10.8 fL Neutrophils (%) (Auto) 88.1 H 37.0-80.0 % Lymphocytes (%) (Auto) 8.3 L 10.0-50.0 % Monocytes (%) (Auto) 3.2 0.0-12.0 % Eosinophils (%) (Auto) 0.1 0.0-7.0 % Basophils (%) (Auto) 0.3 0.0-2.0 % Neutrophils # (Auto) 5.9 1.6-8.6 10 ^3/uL Lymphocytes # (Auto) 0.6 0.4-5.4 10 ^3/uL Monocytes # (Auto) 0.2 0-1.3 10 ^3/uL Eosinophils # (Auto) 0 0-0.8 10 ^3/uL Basophils # (Auto) 0 0-0.2 10 ^3/uL Nucleated Red Blood Cells 0.6 % Sodium Level 135 L 136-145 mmol/L Potassium Level 4.1 3.5-5.1 mmol/L Chloride Level 103 98-107 mmol/L Carbon Dioxide Level 20 20-31 mmol/L Anion Gap 12 5-15 Blood Urea Nitrogen 22 # 9-23 mg/dL Creatinine 1.63 H 0.550-1.02 mg/dL Glomerular Filtration Rate Calc 30 >90 mL/min BUN/Creatinine Ratio 13.5 10.0-20.0 Serum Glucose 130 H 74-106 mg/dL Calcium Level 9.1 8.7-10.4 mg/dL Lactic Acid Level 1.7 0.4-2.0 mmol/L Influenza Type A Antigen Negative Negative Influenza Type B Antigen Negative Negative SARS-CoV-2 Antigen (Rapid) Negative NEGATIVE Test 05/03/25 01:58 05/02/25 21:15 05/02/25 19:58 05/02/25 16:28 Range/Units Blood Gas Specimen Type Venous Blood Gas Sample Site Vbg - n/a Blood Gas Patient Temperature 37.0 Arterial Blood Date Drawn [id number] Daniel Test N/a Venous Blood pH 7.315 L 7.320-7.430 Venous Blood pCO2 at Patient Temp 40.8 38.0-54.0 mmHg Venous Blood pO2 at Patient Temp 39.5 23.0-48.0 mmHg Venous Blood HCO3 20.3 L 22.0-29.0 mmol/L Venous Blood Base Excess -5.5 L -2.0-3.0 mmol/L Blood Gas Liter Flow 2.00 Blood Gas Modality Vbg - n/a FiO2 % 28.0 Prothrombin Time 14.9 H 9.3-11.8 sec Prothrombin Time INR 1.46 H 0.9-1.15 Activated Partial Thromboplast Time 27.0 24.5-34.5 SEC Troponin I High Sensitivity 24 </=34 ng/L Vitamin B12 Level 787 211-911 pg/mL Vitamin D 25-Hydroxy 48.5 30.0-100 ng/mL Hemoglobin A1c 5.9 H <5.7 % A1C Phosphorus Level 4.1 2.4-5.1 mg/dL Magnesium Level 2.1 1.6-2.6 mg/dL Total Bilirubin 2.1 H 0.2-1.0 mg/dL Direct Bilirubin 0.8 H <0.3 mg/dL Aspartate Amino Transferase (AST) 66 H 13-40 U/L Alanine Aminotransferase (ALT) 37 7-40 U/L Alkaline Phosphatase 90 46-116 U/L C-Reactive Protein High Sensitivity 2.40 H <1.0 mg/dL B-Type Natriuretic Peptide 966.80 0-100 pg/mL Total Protein 7.3 5.7-8.2 g/dL Albumin 4.4 3.2-4.8 g/dL Triglycerides Level 98 < 150 mg/dL Cholesterol Level 157 < 200 mg/dL LDL Cholesterol 89 < 100 mg/dL HDL Cholesterol 50 40-59 mg/dL Lipase 23 12-53 U/L Thyroid Stimulating Hormone (TSH) 2.72 0.55-4.78 uIU/mL Test 05/02/25 06:23 Range/Units Urine Color Yellow Yellow Urine Clarity Turbid H Clear Urine pH 5.0 5.0-9.0 Urine Specific [place] 1.014 1.001-1.035 Urine Protein Negative Negative Urine Ketones Negative Negative Urine Blood 1+ H Negative /uL Urine Nitrite 1+ H Negative Urine Bilirubin Negative Negative Urine Urobilinogen Normal Negative mg/dL Urine Leukocyte Esterase 3+ Negative /uL Urine RBC 5 0 - 4 /hpf Urine Microscopic WBC 19 H 0-5 /HPF Urine Squamous Epithelial Cells Few <5 /hpf Urine Bacteria Many H None Seen /hpf Urine Hyaline Casts Mod 0 - 2 /lpf Urine Mucus Few None Seen Urine Yeast (Budding) Occasional None Seen /hpf Urine Glucose Normal Normal mg/dL Urine Opiates Screen Neg NEGATIVE Urine Fentanyl Screen Neg NEGATIVE Urine Barbiturates Screen Neg NEGATIVE Urine Phencyclidine Screen Neg NEGATIVE Urine Amphetamines Screen Neg NEGATIVE Urine Benzodiazepines Screen Neg NEGATIVE Urine Cocaine Screen Neg NEGATIVE Urine Cannabinoids Screen Neg NEGATIVE Microbiology Date/Time Source Procedure Growth Status 05/03/25 06:23 Voided Urine Urine Culture - Final Escherichia coli Complete 05/03/25 06:23 Blood Blood Culture - Preliminary NO GROWTH AFTER 48 HOURS OF INCUBATION. Resulted 05/03/25 05:30 Nose MRSA Screen - Final Methicillin Resistant S.aureus Complete Assessment * Acute on chronic HFrEF - continue diuresis with Lasix 20 mg IV twice daily, monitor strict I&Os, monitor creatinine. * Cardiomyopathy - EF now 20%. Plan of care discussed with patient. Recommend ischemic eval with stress test in a.m., followed by possible workup for ICD given findings on echo this admission. * Paroxysmal atrial fibrillation with episode of RVR - currently controlled rate, continue amiodarone, on Lovenox full dose for stroke prophylaxis. Recommend restarted on low-dose beta-dara if BP tolerates. * HTN - marginal, continue trending. * Sepsis pneumonia, acute hypoxic respiratory failure - on IV antibiotics management per primary team. * MATT on CKD - improving, continue monitoring with diuresis. Case Discussed with Dr Pruitt. Given findings on echocardiogram this admission, plan of care discussed with the patient. Recommend ICD workup needing ischemic eval. We will plan for nuclear stress test in a.m., NPO after midnight. Patient states would like to speak to the family 1st but is open and states she is willing to proceed. Critical care, time spent: 40 minutes This medical document was created using an electronic medical record system with voice recognition software and computerized dictation system. Although this document has been carefully reviewed, there might still be some phonetic and typographical errors. Occasional wrong-word or ``sound-alike substitutions may have occurred due to the inherent limitations of voice recognition software. These areas are purely typographical due to imperfections of the software programs and do not reflect any compromise in the patient's medical care. Please read the chart carefully and recognize, using context, where these substitutions have occurred. Thank you for allowing me to participate in the management of this patient. The treatment plan was discussed with and agreed upon by patient/family including requesting consultants and ordering of imaging/procedures. Plan discussed with: Patient NYHA Physical activity limitations: Class3(Marked) ordinary Date of Service: May 05, 2025 Billing Provider: YANNICK ESTRADA Cardiology Common Codes: [id number] INP/OBS CARE (High), [id number] CARE 30-74 MIN YANNICK ESTRADA May 05, 2025 17:46
[2025-05-05] MEDS: CARVEDILOL 3.125 MG TAB PO SCH (18:04)
[2025-05-05] MEDS: REGADENOSON 0.4 MG/5 ML SYRG IV ONE (18:15)
[2025-05-05] MEDS: AMIODARONE 360mg/200mL PREMIX 200 ML IV SCH (20:25)
[2025-05-06] VITALS (25 sets, daily range): BP systolic 80–169; BP diastolic 60–84; PULSE 81–116; RESP 16–19; TEMP 97.5–98.2; O2SAT 92–100
[2025-05-06] MEDS: PANTOPRAZOLE 40 MG TAB PO SCH (06:00)
[2025-05-06] MEDS: REGADENOSON 0.4 MG/5 ML SYRG IV ONE (07:30)
[2025-05-06 08:34] LABS: Hematocrit 41.6 % (36.0-46.0); Hemoglobin 13.0 g/dL (12.2-16.2); Mean Corpuscular Hemoglobin 28.0 pg (28.0-32.0); Mean Corpuscular Volume 89.3 fL (80.0-100.0); Nucleated Red Blood Cells % 2.0 %
[2025-05-06 12:47] LABS: Albumin 3.7 g/dL (3.2-4.8); Alkaline Phosphatase 99 U/L (46-116); Anion Gap 16 (5-15); BUN/Creatinine Ratio 15.2 (10.0-20.0); Calcium 9.1 mg/dL (8.7-10.4); Chloride 101 mmol/L (98-107); Magnesium 2.2 mg/dL (1.6-2.6); Potassium 4.0 mmol/L (3.5-5.1); Sodium 136 mmol/L (136-145); Total Protein 6.3 g/dL (5.7-8.2)
[2025-05-06 12:48] LABS: Alanine Aminotransferase 64 U/L (7-40); Bilirubin, Total 0.6 mg/dL (0.2-1.0); Blood Urea Nitrogen 32 mg/dL (9-23); Carbon Dioxide 19 mmol/L (20-31); Glucose 113 mg/dL (74-106)
--- NOTE | 2025-05-06 13:13 | DVHPN2 ---
Progress Note - Dictate Date Seen: May 06, 2025 Medical Necessity Reason Pt with a Central, PICC or Fol: No vital signs Vital Sign Date Time Temp Pulse Resp B/P (MAP) Pulse Ox O2 Delivery O2 Flow Rate FiO2 05/06/25 11:53 106 19 99 05/06/25 11:51 Nasal Cannula 2.0 05/06/25 11:51 28 05/06/25 09:00 98.0 96/68 (77) 98.0 Total Intake and Output 05/05/25 05/05/25 05/06/25 15:00 23:00 07:00 Intake Total 150 ml 450 ml 900 ml Output Total 1325 ml 1650 ml Balance 150 ml -875 ml -750 ml medications Current Medications Medications Dose Ordered Sig/Mis Route Start Time Stop Time Status Last Admin Dose Admin Atorvastatin Calcium 20 mg HS PO 05/03/25 22:00 05/05/25 22:10 20 MG Ceftriaxone Sodium 50 ml @ 100 mls/hr DAILY@09 IV 05/04/25 09:00 05/06/25 09:00 100 MLS/HR Levalbuterol HCl 1.25 mg Q6HR NEB 05/03/25 06:00 05/06/25 11:47 1.25 MG Ipratropium [place] 0.5 mg Q6HWA NEB 05/03/25 06:00 05/06/25 11:47 0.5 MG Doxycycline Hyclate 100 ml @ 50 mls/hr Q12H IV 05/03/25 22:00 05/05/25 22:08 50 MLS/HR Enoxaparin Sodium 80 mg Q12HR SC 05/03/25 10:00 05/06/25 09:59 80 MG Diagnostic Test (Pha) 1 strip ACHS 05/03/25 07:00 05/06/25 06:21 1 STRIP Insulin Human Regular ACHS SC 05/03/25 07:00 05/05/25 22:26 2 UNITS Dextrose 50 ml UD PRN IV 05/03/25 01:45 Polyethylene Glycol 17 gm DAILYPRN PRN PO 05/04/25 12:15 Docusate Sodium 100 mg DAILY PO 05/04/25 12:15 05/05/25 09:37 100 MG Mupirocin 1 applic BID EACHNOSTRI 05/04/25 22:00 05/09/25 21:59 Acetaminophen 650 mg Q6HP PRN PO 05/04/25 17:45 05/04/25 18:16 650 MG Vancomycin HCl 0 ml @ 0 mls/hr UD IV 05/05/25 11:15 Pantoprazole Sodium 40 mg DAILY@0600 PO 05/06/25 06:00 Melatonin 5 mg HS PRN PO 05/05/25 22:00 Furosemide 20 mg BIDD IV 05/05/25 17:15 05/06/25 06:20 20 MG Carvedilol 3.125 mg Q12HR PO 05/05/25 17:45 05/05/25 22:09 3.125 MG Amiodarone HCL/ Dextrose 200 ml @ 33.33 mls/ hr Q6H1M IV 05/05/25 20:00 05/06/25 08:02 33.33 MLS/HR laboratory and microbiology Laboratory Tests 05/06/25 10:37 05/06/25 07:20 Test 05/06/25 10:37 Range/Units Serum Glucose 113 H 74-106 mg/dL Assessment/Plan Impression Acute hypoxemic respiratory failure Pleural effusions Pneumonia CHF Patient seen and examined Events Low oxygen requirements On 2 liters nasal cannula No acute events Labs and imaging reviewed Chest x-ray shows small right pleural effusions Management Supplemental oxygen Titrate to maintain sats 90% or above Incentive spirometry Continue antibiotics F/u cultures Bronchodilators Diurese Monitor renal function Monitor electrolytes Supplement as needed F/u cardiology DVT prophylaxis Plan discussed with: Patient KARIE BERMEO MD May 06, 2025 13:13
[2025-05-06] MEDS ORDERED: VANCOMYCIN 500mg/100mL 100 ML IV ONE (14:00)
[2025-05-06] MEDS ORDERED: NOREPINEPHRINE 8 MG/250ML KIT 250 ML IV SCH (14:45)
[2025-05-06] MEDS ORDERED: DOBUTamine 1000MCG/ML 250 ML IV SCH (14:45)
[2025-05-06] MEDS: ALBUMIN 25% 100 ML IV ONE (14:55)
--- NOTE | 2025-05-06 15:26 | DVH ---
EXAM: XY CHEST XRAY 1 VIEW Indication: interval changes Technique: Single frontal view of the chest was obtained Comparison: CT CHEST WITHOUT CONTRAST on DOS: 05/03/25, XY CHEST XRAY 1 VIEW on DOS: 05/03/25, US [facility] ST ULTRASOUND on DOS: 05/03/25, XY CHEST PORTABLE on DOS: 05/02/25, XY CHEST TWO VIEWS ROUTINE on DOS : 01/31/23 FINDINGS: Lines and Tubes: Right central venous catheter tip projects over the right atrium. Lungs: Small bilateral pleural effusions and pulmonary edema. Bibasilar opacities. No pneumothorax. Cardiomediastinal contours: Cardiomegaly. Bones: No acute osseous abnormality. IMPRESSION: Cardiomegaly with small bilateral pleural effusions and pulmonary edema.
[2025-05-06] MEDS ORDERED: ONDANSETRON HCL 4 MG/2 ML VIAL IV PRN (15:30)
--- NOTE | 2025-05-06 15:34 | DVHPNRES ---
Progress Note Date Seen: May 06, 2025 Resident Creating Document: TANIA IRELAND RESIDENT Has the PT tested + for MRSA If YES, has PT been informed?: Yes Medical Necessity Reason Pt with a Central, PICC or Fol: No Subjective Review of Systems Gege Rodriguez is an 89 year old female with past medical history of hypertension, hyperlipidemia, type 2 diabetes mellitus, who presented to the ER with chief complain of shortness of breath. She reported having difficulty breathing since 1 day, present while resting, associated with back pain and dizziness. Patient describes pain in lower back as vague, 9/10, nonradiating. Since 1 day, she has been feeling lightheaded, with difficulty in standing up, causing her to lose balance. These symptoms urged her visit to the urgent care, where she started complaining of nausea and lethargy and was brought to the ER by paramedics. She denies fever, chills, sick contacts or recent travel. She does not use any home oxygen, currently saturating on 3 L oxygen. Previous hospitalization: In 2022 for influenza PMHx: Hypertension, hyperlipidemia, type 2 diabetes mellitus PSHx: Hip replacement surgery and 2 sections Social history: Quit smoking in 2008, 40 pack per year smoking history. Denies alcohol, recreational drug use. Full code, next to kin his grandson. Home medication: Bailey, unsure of other home medication Allergic history: No known allergies Patient seen and examined at bedside. Patient is alert and oriented to time, place person and responding to all questions. Patient complains of generalised weakness. Eyes: No Pain, No Vision change, No Conjunctivae inflammation, No Eyelid inflammation, No Redness ENT: No Ear pain, No Ear discharge, No Nose pain, No Nose discharge, No Nose congestion, No Mouth pain, No Mouth swelling, No Throat pain, No Throat swelling Cardiovascular: No Chest Pain, No Palpitations, No Orthopnea, No Paroxysmal No Dyspnea, No Edema, No Lt Headedness Respiratory: No Cough, No Dry, No Shortness of breath, No SOB with exertion, No Wheezing, No Hemoptysis, No Pleuritic Pain, No Sputum Gastrointestinal: No Nausea, No Vomiting, No Abdominal Pain, No Diarrhea, No Constipation, No Melena, No Hematochezia Genitourinary: No Dysuria, No Frequency, No Incontinence, No Hematuria, No Retention ROS: 05/03/25 Patient was examined at bedside today. patient was drowsy in the morning but was fully oriented ANO x4 in the afternoon. Patient stated that she has been taking Eliquis daily and patient's heart rate has been consistently high due to her atrial fibrillation so we started her on amiodarone bolus and then continuous drip. I spoke to the patient's great grandson who is her caregiver and he states that the patient might have dementia that she has been mixing things up and recalling old memories more often these days. As per the grandson patient has been weak and fatigued for whole week and her face and feet have swollen up. He also reports that patient has been having shortness of breath and after the appointment at PCP yesterday at 2:30 a.m., patient reported she felt dizzy and was unable to walk due to shortness of breath which is why the paramedics brought her to the emergency department. I discussed the patient's condition in detail with the great grandson and he communicated understanding. 05/04/2025: Patient was seen and examined by me at the bedside today. Patient is A&O x4 today morning. She reports feeling better and that her shortness of breath has decreased. She does report of feeling tired. Patient complains that she strains likely to pass stool and has not been able to. MiraLax 17 g and docusate 100 mg has been added today. Pulmonology consult was done yesterday who suggested continuation of antibiotics and steroids. Grandson was informed regarding pulmonary doctor's decision. We will continue current management for now. Code status was discussed yesterday with patient's great grandson and patient and they set patient is full code. MRSA positive, mupirocin for nurse added today. Isolation precautions also added today. 05/05/2025-patient was seen today at bedside, patient reported feeling better today. Labs and chart reviewed. Uterine culture revealed E coli, sensitive to ceftriaxone, MRSA nares positive. Echo 2D revealed LVEF 20% with global hypokinesia, diminished RV function, severe TR, moderate MR. Left atrial enlargement. Patient reported constipation, ordered lactulose and also melatonin at night PRN for insomnia. Ordered cardiology consult for further evaluation and care of HFrEF. Ordered Lasix. Spoke to lending manager Dr. BERMEO recommended no thoracentesis at this moment, diuresis. Spoke to patient's daughter at bedside. Ordered IV Lasix 20 mg b.i.d. and carvedilol 3.125 mg p.o. b.i.d. 05/06/25- Patient was seen at bedside today. Lasix was discontinued to to increasing creatinine. Vancomycin and Doxycycline were discontinued. Patient's blood pressure was 85/46 , for which patient was given 1 dose of albumin 25gm, dobutamine and levophed were ordered but kept on standby, as blood pressure stabilised with albumin. Isolation was discontinued. Patient was due for Nuclear stress test today but the procedure was pushed to tomorrow because of pateint's soft blood pressures. New chest Xray was ordered which showed bilateral pulmonary effusions and pulmonary edema.Patient's family was bedside and her clinical status was communicated to them. Unable to initiate guideline directed medical therapy for CHF given soft BP and poor renal function. Continue with strict intake and output, daily weights, maintain fluid restriction, and low sodium diet. Objective vital signs Vital Sign Date Time Temp Pulse Resp B/P (MAP) Pulse Ox O2 Delivery O2 Flow Rate FiO2 05/06/25 15:25 101 16 92/75 (81) 05/06/25 13:00 97.8 99 97.8 05/06/25 11:51 Nasal Cannula 2.0 05/06/25 11:51 28 Total Intake and Output 05/05/25 05/05/25 05/06/25 15:00 23:00 07:00 Intake Total 150 ml 450 ml 900 ml Output Total 1325 ml 1650 ml Balance 150 ml -875 ml -750 ml medications Current Medications Medications Dose Ordered Sig/Mis Route Start Time Stop Time Status Last Admin Dose Admin Atorvastatin Calcium 20 mg HS PO 05/03/25 22:00 05/05/25 22:10 20 MG Ceftriaxone Sodium 50 ml @ 100 mls/hr DAILY@09 IV 05/04/25 09:00 05/06/25 09:00 100 MLS/HR Levalbuterol HCl 1.25 mg Q6HR NEB 05/03/25 06:00 05/06/25 11:47 1.25 MG Ipratropium [place] 0.5 mg Q6HWA NEB 05/03/25 06:00 05/06/25 11:47 0.5 MG Enoxaparin Sodium 80 mg Q12HR SC 05/03/25 10:00 05/06/25 09:59 80 MG Diagnostic Test (Pha) 1 strip ACHS 05/03/25 07:00 05/06/25 06:21 1 STRIP Insulin Human Regular ACHS SC 05/03/25 07:00 05/05/25 22:26 2 UNITS Dextrose 50 ml UD PRN IV 05/03/25 01:45 Polyethylene Glycol 17 gm DAILYPRN PRN PO 05/04/25 12:15 Docusate Sodium 100 mg DAILY PO 05/04/25 12:15 05/05/25 09:37 100 MG Mupirocin 1 applic BID EACHNOSTRI 05/04/25 22:00 05/09/25 21:59 05/06/25 10:00 1 APPLIC Acetaminophen 650 mg Q6HP PRN PO 05/04/25 17:45 05/04/25 18:16 650 MG Pantoprazole Sodium 40 mg DAILY@0600 PO 05/06/25 06:00 Melatonin 5 mg HS PRN PO 05/05/25 22:00 Carvedilol 3.125 mg Q12HR PO 05/05/25 17:45 05/05/25 22:09 3.125 MG Amiodarone HCL/ Dextrose 200 ml @ 33.33 mls/ hr Q6H1M IV 05/05/25 20:00 05/06/25 14:03 33.33 MLS/HR Norepinephrine Bitartrate 250 ml @ 3.75 mls/hr Q24H IV 05/06/25 14:45 UNV Dobutamine HCl/ Dextrose 250 ml @ 24.9 mls/hr Q10H3M IV 05/06/25 14:45 Ondansetron HCl 4 mg Q4HPRN PRN IV 05/06/25 15:30 Examination General: Patient is awake and alert HEENT: Normocephalic, atraumatic, moist mucous membranes, Respiratory/pulmonary: right sided lung crackles+, mildly diminished breath sound bilaterally Cardiovascular: Tachycardia. Normal heart sounds S1 and S2 with no associated murmurs,Bp was 85/46 Abdomen: Cyst on the anterior abdominal wall Abdomen nondistended, there is no pain to palpation in any of the abdominal quadrants, no palpable masses. Extremities: No pitting edema noted on examination, peripheral Pulses 3+ Radial (R). 3+ Radial (L). 3+ Dorsalis pedis (R). 3+ Dorsalis pedis(L) Skin: No rashes or pruritus, there is no sacral edema present at this time. Neurological: Intact cranial nerves with no focal neurologic deficits laboratory and microbiology Laboratory Tests 05/06/25 10:37 05/06/25 07:20 Test 05/06/25 10:37 Range/Units Serum Glucose 113 H 74-106 mg/dL Microbiology Date/Time Source Procedure Growth Status 05/03/25 06:23 Voided Urine Urine Culture - Final Escherichia coli Complete 05/03/25 06:23 Blood Blood Culture - Preliminary NO GROWTH AFTER 72 HOURS OF INCUBATION. Resulted 05/03/25 05:30 Nose MRSA Screen - Final Methicillin Resistant S.aureus Complete Labs and/or images reviewed: Labs reviewed by me, Image(s) reviewed by me Problem List/Assessment/Plan Problem List/Assessment/Plan #Sepsis due to Pneumonia, likely gram negative rods vs. gram positive cocci #Acute hypoxic respiratory failure due to pneumonia #Right moderate pleural effusion #Atelectasis, compressive due to pleural effusion #Lactic acidosis -CXR revealed right lower lobe consolidation/ pleural effusion -Tachycardia, tachypnea, lactic acidosis -blood culture no growth so far -pending sputum culture -on IV ceftriaxone 1 g, - doxycycline discontinued -vancomycin discontinued -Restricted fluid resuscitation in context of exacerbation of heart failure -oxygen tapering, plan is to take off oxygen if tolerating well and breathing well in room air maintain oxygen saturation more than 90% -Nebulization therapy with albuterol and ipratropium - MRSA positive, mupirocin as prescribed - isolation discontinued -nuclear test tomorrow -albumin 25gm given #Acute exacerbation of HFrEF, LVEF 20%, global hypokinesia # severe TR, moderate MR. Left atrial enlargement. -previous Echocardiogram from 02/2024 shows LVEF 45%, grade 1 diastolic dysfunction. Repeat echocardiogram showed EF 20% with severe TR and moderate MR -CXR revealed right lower lobe consolidation/ pleural effusion -lasix discontinued. -ordered carvedilol 3.125 mg p.o. b.i.d. -Strict I&O #UTI -urine analysis showed urine clarity turbid, blood +1, nitrites +1, leukocyte esterase 3+, RBC 5, WBC 19, bacteria many, squamous epithelial cells few, mucus few, hyaline casts moderate, urine yeast budding occasional -urine culture E coli -IV ceftriaxone 1 g daily #Presyncope, rule out cardiac etiology -Echocardiogram-LVEF 20%, global hypokinesia -Orthostatic Vitals ordered -Monitor on telemetry for life-threatening arrhythmias #Paroxysmal atrial fibrillation with RVR -On apixaban at home -continue amiodarone as prescribed -continue Lovenox as prescribed #Diabetes mellitus type 2,A1c 5.9 -Sliding scale insulin -Monitor blood glucose -Diabetes education -Diabetic diet #Transaminitis -Hepatitis panel -Liver ultrasound shows gallbladder wall thickening, no gallstones visualized #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
--- NOTE | 2025-05-06 16:45 | DVHPN2 ---
Consult Progress Note Subjective Other Systems: Patient remains in atrial fibrillation at time of assessment on monitoring coordinator. Complains of abdominal cramping with diarrhea at time of assessment. Objective vital signs Vital Sign Date Time Temp Pulse Resp B/P (MAP) Pulse Ox O2 Delivery O2 Flow Rate FiO2 05/06/25 15:56 99 16 101/84 (90) 05/06/25 13:00 97.8 99 97.8 05/06/25 11:51 Nasal Cannula 2.0 05/06/25 11:51 28 Total Intake and Output 05/05/25 05/05/25 05/06/25 15:00 23:00 07:00 Intake Total 150 ml 450 ml 900 ml Output Total 1325 ml 1650 ml Balance 150 ml -875 ml -750 ml medications Current Medications Medications Dose Ordered Sig/Mis Route Start Time Stop Time Status Last Admin Dose Admin Atorvastatin Calcium 20 mg HS PO 05/03/25 22:00 05/05/25 22:10 20 MG Ceftriaxone Sodium 50 ml @ 100 mls/hr DAILY@09 IV 05/04/25 09:00 05/06/25 09:00 100 MLS/HR Levalbuterol HCl 1.25 mg Q6HR NEB 05/03/25 06:00 05/06/25 11:47 1.25 MG Ipratropium [place] 0.5 mg Q6HWA NEB 05/03/25 06:00 05/06/25 11:47 0.5 MG Diagnostic Test (Pha) 1 strip ACHS 05/03/25 07:00 05/06/25 06:21 1 STRIP Insulin Human Regular ACHS SC 05/03/25 07:00 05/05/25 22:26 2 UNITS Dextrose 50 ml UD PRN IV 05/03/25 01:45 Polyethylene Glycol 17 gm DAILYPRN PRN PO 05/04/25 12:15 Docusate Sodium 100 mg DAILY PO 05/04/25 12:15 05/05/25 09:37 100 MG Mupirocin 1 applic BID EACHNOSTRI 05/04/25 22:00 05/09/25 21:59 05/06/25 10:00 1 APPLIC Acetaminophen 650 mg Q6HP PRN PO 05/04/25 17:45 05/04/25 18:16 650 MG Pantoprazole Sodium 40 mg DAILY@0600 PO 05/06/25 06:00 Melatonin 5 mg HS PRN PO 05/05/25 22:00 Carvedilol 3.125 mg Q12HR PO 05/05/25 17:45 05/05/25 22:09 3.125 MG Amiodarone HCL/ Dextrose 200 ml @ 33.33 mls/ hr Q6H1M IV 05/05/25 20:00 05/06/25 14:03 33.33 MLS/HR Norepinephrine Bitartrate 250 ml @ 3.75 mls/hr Q24H IV 05/06/25 14:45 Dobutamine HCl/ Dextrose 250 ml @ 24.9 mls/hr Q10H3M IV 05/06/25 14:45 Ondansetron HCl 4 mg Q4HPRN PRN IV 05/06/25 15:30 Enoxaparin Sodium 80 mg DAILY SC 05/07/25 10:00 Examination: GENERAL:Abnormal (Generalized weakness), LUNGS:Normal, CVS:Normal (Atrial fibrillation), NEURO:Normal laboratory and microbiology Laboratory Tests 05/06/25 10:37 05/06/25 07:20 Test 05/06/25 10:37 Range/Units Serum Glucose 113 H 74-106 mg/dL Problem List/Assessment/Plan Problem List/Assessment/Plan [place] HFrEF, NYHA class III Paroxysmal atrial fibrillation with rapid ventricular response (on Eliquis) Severe versus moderate tricuspid valve regurgitation Moderate mitral valve regurgitation Sepsis Pneumonia Hypertension Bilateral pleural effusions Acute kidney injury Transaminitis Urinary tract infection Type 2 diabetes mellitus Plan/recommendations (Dr. Pruitt): Transthoracic echocardiogram reveals an EF of 20% with global hypokinesis. Unable to initiate guideline directed medical therapy for CHF given soft BP and poor renal function. Standby vasopressors ordered per primary care team. Continue with strict intake and output, daily weights, maintain fluid restriction, and low sodium diet. Weekend cardiology team ordered inpatient stress test. Patient unable to undergo stress test today given new onset diarrhea and generalized fatigue. The patient would like to hold off on stres test at this time. [id number] VASc score: 5 points, HAS-BLED score: 1 point. Continue with therapeutic Lovenox, transition back to NOAC prior to discharge. Hold beta-dara at this time given suboptimal blood pressures. Continue amiodarone. Continue with close cardiac surveillance and notify cardiology team immediately for any ECG changes. Thank you for allowing us to care for this patient. Please call with any questions or concerns. This medical document was created using an electronic medical record system with voice recognition software and computerized dictation system. Although this document has been carefully reviewed, there might still be some phonetic and typographical errors. Occasional wrong-word or ``sound-alike substitutions may have occurred due to the inherent limitations of voice recognition software. These areas are purely typographical due to imperfections of the software programs and do not reflect any compromise in the patient's medical care. Please read the chart carefully and recognize, using context, where these substitutions have occurred. Plan discussed with: Patient, Other (Grandson at bedside) Date of Service: May 06, 2025 Billing Provider: PANDA STUART Common Visit Codes: [id number] INP/OBS CARE(HIGH) PANDA STUART May 06, 2025 16:45
[2025-05-07] VITALS (17 sets, daily range): BP systolic 103–123; BP diastolic 79–90; PULSE 77–115; RESP 16–20; TEMP 96.9–97.8; O2SAT 95–100
[2025-05-07 05:47] LABS: Alkaline Phosphatase 77 U/L (46-116); Anion Gap 14 (5-15); BUN/Creatinine Ratio 19.1 (10.0-20.0); Calcium 9.1 mg/dL (8.7-10.4); Carbon Dioxide 23 mmol/L (20-31); Chloride 99 mmol/L (98-107); Potassium 3.7 mmol/L (3.5-5.1); Sodium 136 mmol/L (136-145); Total Protein 5.9 g/dL (5.7-8.2)
[2025-05-07 05:48] LABS: Albumin 3.7 g/dL (3.2-4.8); Bilirubin, Total 0.6 mg/dL (0.2-1.0)
[2025-05-07 05:52] LABS: Alanine Aminotransferase 69 U/L (7-40); Blood Urea Nitrogen 41 mg/dL (9-23); Glucose 111 mg/dL (74-106)
--- NOTE | 2025-05-07 08:17 | DVH ---
Bilateral Chest Sonogram Date: 05/07/2025 07:25 AM Clinical history: FLUID CHECK FOR POSSIBLE THORACENTESIS Technique: Limited sonographic evaluation of the bilateral chest was performed to evaluate for pleur al effusion. Finding/Impression: Moderate bilateral pleural effusions.
[2025-05-07] MEDS: ENOXAPARIN SOD 80 MG/0.8ML SYRINGE SC SCH (09:51)
--- NOTE | 2025-05-07 13:33 | DVHPN2 ---
Consult Progress Note Subjective Patient reports: Feels better Other Systems: Patient remains in atrial fibrillation with uncontrolled rate on airport manager Objective vital signs Vital Sign Date Time Temp Pulse Resp B/P (MAP) Pulse Ox O2 Delivery O2 Flow Rate FiO2 05/07/25 12:14 96.9 108 19 110/83 (92) 96 96.9 05/07/25 07:25 Nasal Cannula 3.0 05/07/25 07:25 32 Total Intake and Output 05/06/25 05/06/25 05/07/25 15:00 23:00 07:00 Intake Total 50 ml 300 ml 0 ml Output Total 150 ml 550 ml Balance 50 ml 150 ml -550 ml medications Current Medications Medications Dose Ordered Sig/Mis Route Start Time Stop Time Status Last Admin Dose Admin Ceftriaxone Sodium 50 ml @ 100 mls/hr DAILY@09 IV 05/04/25 09:00 05/07/25 09:50 100 MLS/HR Levalbuterol HCl 1.25 mg Q6HR NEB 05/03/25 06:00 05/07/25 11:35 1.25 MG Ipratropium [place] 0.5 mg Q6HWA NEB 05/03/25 06:00 05/07/25 11:35 0.5 MG Diagnostic Test (Pha) 1 strip ACHS 05/03/25 07:00 05/07/25 06:17 1 STRIP Insulin Human Regular ACHS SC 05/03/25 07:00 05/06/25 17:00 2 UNITS Dextrose 50 ml UD PRN IV 05/03/25 01:45 Polyethylene Glycol 17 gm DAILYPRN PRN PO 05/04/25 12:15 Docusate Sodium 100 mg DAILY PO 05/04/25 12:15 05/05/25 09:37 100 MG Mupirocin 1 applic BID EACHNOSTRI 05/04/25 22:00 05/09/25 21:59 05/07/25 10:06 1 APPLIC Acetaminophen 650 mg Q6HP PRN PO 05/04/25 17:45 05/06/25 17:42 650 MG Pantoprazole Sodium 40 mg DAILY@0600 PO 05/06/25 06:00 Melatonin 5 mg HS PRN PO 05/05/25 22:00 Ondansetron HCl 4 mg Q4HPRN PRN IV 05/06/25 15:30 Enoxaparin Sodium 80 mg DAILY SC 05/07/25 10:00 05/07/25 09:51 80 MG Amiodarone HCl 200 mg Q12HR PO 05/07/25 22:00 Examination: GENERAL:Abnormal, LUNGS:Normal, CVS:Abnormal (Atrial fibrillation with uncontrolled rate), NEURO:Normal laboratory and microbiology Laboratory Tests 05/07/25 04:51 05/06/25 07:20 Test 05/07/25 04:51 Range/Units Serum Glucose 111 H 74-106 mg/dL Problem List/Assessment/Plan Problem List/Assessment/Plan [place] HFrEF, NYHA class III Paroxysmal atrial fibrillation with rapid ventricular response (on Eliquis) Severe versus moderate tricuspid valve regurgitation Moderate mitral valve regurgitation Sepsis Pneumonia Hypertension Bilateral pleural effusions Acute kidney injury Transaminitis Urinary tract infection Type 2 diabetes mellitus Plan/recommendations (Dr. Pruitt): Transthoracic echocardiogram reveals an EF of 20% with global hypokinesis. Initiate guideline directed medical therapy for CHF, hold ARNI/ACEi/ARB, MRA given poor renal function. Hold SGLT2i given UTI. Start metoprolol tartrate for rate control, switch to succinate per GDMT guidelines if patients BP tolerates dose. Continue with strict intake and output, daily weights, maintain fluid restriction, and low sodium diet. Weekend cardiology team ordered inpatient stress test. The patient was only able to undergo first half of stress test. Patient will tentatively undergo second half tomorrow (05/08/25). [id number] VASc score: 5 points, HAS-BLED score: 1 point. Continue with therapeutic Lovenox, transition back to DOAC prior to discharge. Initiate beta- dara at this time, closely monitor BP. Continue amiodarone. Continue with close cardiac surveillance and notify cardiology team immediately for any ECG changes. Thank you for allowing us to care for this patient. Please call with any questions or concerns. This medical document was created using an electronic medical record system with voice recognition software and computerized dictation system. Although this document has been carefully reviewed, there might still be some phonetic and typographical errors. Occasional wrong-word or ``sound-alike substitutions may have occurred due to the inherent limitations of voice recognition software. These areas are purely typographical due to imperfections of the software programs and do not reflect any compromise in the patient's medical care. Please read the chart carefully and recognize, using context, where these substitutions have occurred. Plan discussed with: Patient, Daughter Date of Service: May 07, 2025 Billing Provider: PANDA STUART Common Visit Codes: [id number] INP/OBS CARE(HIGH) PANDA STUART May 07, 2025 13:32
--- NOTE | 2025-05-07 13:45 | DVH ---
RENAL ULTRASOUND CLINICAL HISTORY: CKD TECHNIQUE: Multiple grayscale ultrasound images were obtained through the kidneys and urinary bladder . COMPARISON: US LIVER on DOS: 05/02/25 FINDINGS: Right kidney: Measures 8.0 cm. No hydronephrosis. There is a small echogenic lesion in the midpole o f the right kidney measuring 8 mm. There is heterogeneous mixed echogenicity Curvilinear collection a djacent to the mid to lower pole of the right kidney measuring 3.3 x 0.9 x 3.6 cm. Left kidney: Measures 6.7 cm. No hydronephrosis. Urinary bladder: Contains a Huff catheter. There is mild ascites in the visualized right upper and lower quadrants and left upper quadrant. IMPRESSION: 1. Slightly small kidneys without hydronephrosis. 2. Heterogeneous mixed echogenicity curvilinear collection adjacent to the mid to lower pole of the r ight kidney. No vascularity. Consider characterization with CT abdomen if there is clinical concern f or infection or blood products. 3. Small echogenic lesion in the midpole of the right kidney. DDX includes AML, hemorrhagic cyst, or nonshadowing nonobstructive calculus. 4. Ascites in the visualized abdomen.
[2025-05-07] MEDS: METOPROLOL TARTRATE 25 MG TAB PO ONE (14:07)
[2025-05-07] MEDS: AMIODARONE HCL 200 MG TAB PO ONE (14:07)
--- NOTE | 2025-05-07 14:45 | DVHPN2 ---
Progress Note - Dictate Date Seen: May 07, 2025 Has the PT tested + for MRSA If YES, has PT been informed?: Yes Medical Necessity Reason Pt with a Central, PICC or Fol: No vital signs Vital Sign Date Time Temp Pulse Resp B/P (MAP) Pulse Ox O2 Delivery O2 Flow Rate FiO2 05/07/25 14:07 108 110/83 05/07/25 12:14 96.9 19 96 96.9 05/07/25 11:35 Nasal Cannula 1.0 05/07/25 11:35 24 Total Intake and Output 05/06/25 05/06/25 05/07/25 15:00 23:00 07:00 Intake Total 50 ml 300 ml 0 ml Output Total 150 ml 550 ml Balance 50 ml 150 ml -550 ml medications Current Medications Medications Dose Ordered Sig/Mis Route Start Time Stop Time Status Last Admin Dose Admin Ceftriaxone Sodium 50 ml @ 100 mls/hr DAILY@09 IV 05/04/25 09:00 05/07/25 09:50 100 MLS/HR Levalbuterol HCl 1.25 mg Q6HR NEB 05/03/25 06:00 05/07/25 11:35 1.25 MG Ipratropium [place] 0.5 mg Q6HWA NEB 05/03/25 06:00 05/07/25 11:35 0.5 MG Diagnostic Test (Pha) 1 strip ACHS 05/03/25 07:00 05/07/25 06:17 1 STRIP Insulin Human Regular ACHS SC 05/03/25 07:00 05/06/25 17:00 2 UNITS Dextrose 50 ml UD PRN IV 05/03/25 01:45 Polyethylene Glycol 17 gm DAILYPRN PRN PO 05/04/25 12:15 Docusate Sodium 100 mg DAILY PO 05/04/25 12:15 05/05/25 09:37 100 MG Mupirocin 1 applic BID EACHNOSTRI 05/04/25 22:00 05/09/25 21:59 05/07/25 10:06 1 APPLIC Acetaminophen 650 mg Q6HP PRN PO 05/04/25 17:45 05/06/25 17:42 650 MG Pantoprazole Sodium 40 mg DAILY@0600 PO 05/06/25 06:00 Melatonin 5 mg HS PRN PO 05/05/25 22:00 Ondansetron HCl 4 mg Q4HPRN PRN IV 05/06/25 15:30 Enoxaparin Sodium 80 mg DAILY SC 05/07/25 10:00 05/07/25 09:51 80 MG Amiodarone HCl 200 mg Q12HR PO 05/07/25 22:00 Metoprolol Tartrate 12.5 mg BID PO 05/07/25 22:00 laboratory and microbiology Laboratory Tests 05/07/25 04:51 05/06/25 07:20 Test 05/07/25 04:51 Range/Units Serum Glucose 111 H 74-106 mg/dL Assessment/Plan Impression Acute hypoxemic respiratory failure Pleural effusions Pneumonia CHF Patient seen and examined Events Low oxygen requirements On 2 liters nasal cannula No distress Labs and imaging reviewed Management Supplemental oxygen Titrate to maintain sats 90% or above Incentive spirometry Continue antibiotics F/u cultures Bronchodilators Diurese Monitor renal function Monitor electrolytes Supplement as needed F/u cardiology DVT prophylaxis Plan discussed with: Patient KARIE BERMEO MD May 07, 2025 14:45
--- NOTE | 2025-05-07 14:46 | DVHCONRES ---
Family History: Diabetes mellitus G8 BROTHER FH: cancer Allergies: Coded Allergies: Penicillins (Verified Allergy, Unknown, 03/30/24) Home Meds Reported Medications Acetaminophen (Acetaminophen) 325 Mg Tab, 325 MG PO PRN, MG 0 Refills 05/03/25 Current Medications Current Medications Medications (Trade) Dose Ordered Sig/Mis Route PRN Reason Start Time Stop Time Status Last Admin Ondansetron HCl (Zofran) 4 mg Q4HPRN PRN IV NAUSEA / VOMITING 05/06/25 15:30 Enoxaparin Sodium (Lovenox) 80 mg DAILY SC 05/07/25 10:00 05/07/25 09:51 Amiodarone HCl 250 ml @ 16.667 mls/ hr Q15H IV 05/07/25 08:15 05/07/25 08:02 DC Amiodarone HCl 250 ml @ 33.333 mls/ hr Q7H30M IV 05/07/25 08:15 05/07/25 10:58 DC 05/07/25 08:15 Amiodarone HCl (Cordarone Tablet) 200 mg Q12HR PO 05/07/25 22:00 Metoprolol Tartrate (Lopressor Tablet) 12.5 mg BID PO 05/07/25 22:00 Vital Signs Vital Signs Date Time Temp Pulse Resp B/P (MAP) Pulse Ox O2 Delivery O2 Flow Rate FiO2 05/07/25 14:07 108 110/83 05/07/25 12:14 96.9 19 96 96.9 05/07/25 11:35 Nasal Cannula 1.0 05/07/25 11:35 24 Labs/Diagnostic Data Labs Test 05/07/25 12:21 05/07/25 04:51 05/06/25 10:37 05/06/25 07:20 Range/Units POC Glucose 93 70-106 mg/dl Sodium Level 136 136-145 mmol/L Potassium Level 3.7 3.5-5.1 mmol/L Chloride Level 99 98-107 mmol/L Carbon Dioxide Level 23 20-31 mmol/L Anion Gap 14 5-15 Blood Urea Nitrogen 41 H 9-23 mg/dL Creatinine 2.15 H 0.550-1.02 mg/dL Glomerular Filtration Rate Calc 22 >90 mL/min BUN/Creatinine Ratio 19.1 10.0-20.0 Serum Glucose 111 H 74-106 mg/dL Calcium Level 9.1 8.7-10.4 mg/dL Phosphorus Level 4.8 2.4-5.1 mg/dL Total Bilirubin 0.6 0.2-1.0 mg/dL Aspartate Amino Transferase (AST) 80 H 13-40 U/L Alanine Aminotransferase (ALT) 69 H 7-40 U/L Alkaline Phosphatase 77 46-116 U/L Total Protein 5.9 5.7-8.2 g/dL Albumin 3.7 3.2-4.8 g/dL Parathyroid Hormone (Intact) 360.0 H 18.4-80.1 pg/mL Magnesium Level 2.2 1.6-2.6 mg/dL Random Vancomycin Level 12.6 H 5-10 ug/mL White Blood Count 6.7 4.4-10.8 10^3/uL Red Blood Count 4.66 4.0-5.20 10^6/uL Hemoglobin 13.0 12.2-16.2 g/dL Hematocrit 41.6 36.0-46.0 % Mean Corpuscular Volume 89.3 80.0-100.0 fL Mean Corpuscular Hemoglobin 28.0 28.0-32.0 pg Mean Corpuscular Hemoglobin Concent 31.3 L 32.0-36.0 g/dL Red Cell Distribution Width 17.0 H 11.8-14.3 % Platelet Count 164 140-450 10^3/uL Mean Platelet Volume 8.9 6.9-10.8 fL Neutrophils (%) (Auto) 84.1 H 37.0-80.0 % Lymphocytes (%) (Auto) 8.0 L 10.0-50.0 % Monocytes (%) (Auto) 7.5 0.0-12.0 % Eosinophils (%) (Auto) 0.0 0.0-7.0 % Basophils (%) (Auto) 0.4 0.0-2.0 % Neutrophils # (Auto) 5.6 1.6-8.6 10 ^3/uL Lymphocytes # (Auto) 0.5 0.4-5.4 10 ^3/uL Monocytes # (Auto) 0.5 0-1.3 10 ^3/uL Eosinophils # (Auto) 0 0-0.8 10 ^3/uL Basophils # (Auto) 0 0-0.2 10 ^3/uL Nucleated Red Blood Cells 2.0 % Test 05/03/25 08:15 05/03/25 02:56 05/03/25 01:58 05/02/25 21:15 Range/Units Lactic Acid Level 1.7 0.4-2.0 mmol/L Influenza Type A Antigen Negative Negative Influenza Type B Antigen Negative Negative SARS-CoV-2 Antigen (Rapid) Negative NEGATIVE Blood Gas Specimen Type Venous Blood Gas Sample Site Vbg - n/a Blood Gas Patient Temperature 37.0 Arterial Blood Date Drawn [id number] Dainel Test N/a Venous Blood pH 7.315 L 7.320-7.430 Venous Blood pCO2 at Patient Temp 40.8 38.0-54.0 mmHg Venous Blood pO2 at Patient Temp 39.5 23.0-48.0 mmHg Venous Blood HCO3 20.3 L 22.0-29.0 mmol/L Venous Blood Base Excess -5.5 L -2.0-3.0 mmol/L Blood Gas Liter Flow 2.00 Blood Gas Modality Vbg - n/a FiO2 % 28.0 Prothrombin Time 14.9 H 9.3-11.8 sec Prothrombin Time INR 1.46 H 0.9-1.15 Activated Partial Thromboplast Time 27.0 24.5-34.5 SEC Test 05/02/25 19:58 05/02/25 16:28 05/02/25 06:23 Range/Units Troponin I High Sensitivity 24 </=34 ng/L Vitamin B12 Level 787 211-911 pg/mL Vitamin D 25-Hydroxy 48.5 30.0-100 ng/mL Hemoglobin A1c 5.9 H <5.7 % A1C Direct Bilirubin 0.8 H <0.3 mg/dL C-Reactive Protein High Sensitivity 2.40 H <1.0 mg/dL B-Type Natriuretic Peptide 966.80 0-100 pg/mL Triglycerides Level 98 < 150 mg/dL Cholesterol Level 157 < 200 mg/dL LDL Cholesterol 89 < 100 mg/dL HDL Cholesterol 50 40-59 mg/dL Lipase 23 12-53 U/L Thyroid Stimulating Hormone (TSH) 2.72 0.55-4.78 uIU/mL Urine Color Yellow Yellow Urine Clarity Turbid H Clear Urine pH 5.0 5.0-9.0 Urine Specific [place] 1.014 1.001-1.035 Urine Protein Negative Negative Urine Ketones Negative Negative Urine Blood 1+ H Negative /uL Urine Nitrite 1+ H Negative Urine Bilirubin Negative Negative Urine Urobilinogen Normal Negative mg/dL Urine Leukocyte Esterase 3+ Negative /uL Urine RBC 5 0 - 4 /hpf Urine Microscopic WBC 19 H 0-5 /HPF Urine Squamous Epithelial Cells Few <5 /hpf Urine Bacteria Many H None Seen /hpf Urine Hyaline Casts Mod 0 - 2 /lpf Urine Mucus Few None Seen Urine Yeast (Budding) Occasional None Seen /hpf Urine Glucose Normal Normal mg/dL Urine Opiates Screen Neg NEGATIVE Urine Fentanyl Screen Neg NEGATIVE Urine Barbiturates Screen Neg NEGATIVE Urine Phencyclidine Screen Neg NEGATIVE Urine Amphetamines Screen Neg NEGATIVE Urine Benzodiazepines Screen Neg NEGATIVE Urine Cocaine Screen Neg NEGATIVE Urine Cannabinoids Screen Neg NEGATIVE Microbiology Date/Time Source Procedure Growth Status 05/03/25 06:23 Voided Urine Urine Culture - Final Escherichia coli Complete 05/03/25 06:23 Blood Blood Culture - Preliminary NO GROWTH AFTER 72 HOURS OF INCUBATION. Resulted 05/03/25 05:30 Nose MRSA Screen - Final Methicillin Resistant S.aureus Complete GIA JACOB RESDIENT May 07, 2025 14:46
--- NOTE | 2025-05-07 15:21 | DVHPNRES ---
Progress Note Date Seen: May 07, 2025 Resident Creating Document: TANIA IRELAND RESIDENT Has the PT tested + for MRSA If YES, has PT been informed?: Yes Medical Necessity Reason Pt with a Central, PICC or Fol: No Subjective Review of Systems Gege Rodriguez is an 89 year old female with past medical history of hypertension, hyperlipidemia, type 2 diabetes mellitus, who presented to the ER with chief complaint of shortness of breath. She reported having difficulty breathing since 1 day, present while resting, associated with back pain and dizziness. Patient describes pain in lower back as vague, 9/10, nonradiating. Since 1 day, she has been feeling lightheaded, with difficulty in standing up, causing her to lose balance. These symptoms urged her visit to the urgent care, where she started complaining of nausea and lethargy and was brought to the ER by paramedics. She denies fever, chills, sick contacts or recent travel. She does not use any home oxygen, currently saturating on 3 L oxygen. Previous hospitalization: In 2022 for influenza PMHx: Hypertension, hyperlipidemia, type 2 diabetes mellitus PSHx: Hip replacement surgery and 2 sections Social history: Quit smoking in 2008, 40 pack per year smoking history. Denies alcohol, recreational drug use. Full code, next to kin his grandson. Home medication: Bailey, unsure of other home medication Allergic history: penicillins Patient seen and examined at bedside. Patient is alert and oriented to time, place person and responding to all questions. Patient complains of generalised weakness. Eyes: No Pain, No Vision change, No Conjunctivae inflammation, No Eyelid inflammation, No Redness ENT: No Ear pain, No Ear discharge, No Nose pain, No Nose discharge, No Nose congestion, No Mouth pain, No Mouth swelling, No Throat pain, No Throat swelling Cardiovascular: No Chest Pain, No Palpitations, No Orthopnea, No Paroxysmal No Dyspnea, No Edema, No Lt Headedness Respiratory: No Cough, No Dry, No Shortness of breath, No SOB with exertion, No Wheezing, No Hemoptysis, No Pleuritic Pain, No Sputum Gastrointestinal: No Nausea, No Vomiting, No Abdominal Pain, No Diarrhea, No Constipation, No Melena, No Hematochezia Genitourinary: No Dysuria, No Frequency, No Incontinence, No Hematuria, No Retention ROS: 05/03/25 Patient was examined at bedside today. patient was drowsy in the morning but was fully oriented ANO x4 in the afternoon. Patient stated that she has been taking Eliquis daily and patient's heart rate has been consistently high due to her atrial fibrillation so we started her on amiodarone bolus and then continuous drip. I spoke to the patient's great grandson who is her caregiver and he states that the patient might have dementia that she has been mixing things up and recalling old memories more often these days. As per the grandson patient has been weak and fatigued for whole week and her face and feet have swollen up. He also reports that patient has been having shortness of breath and after the appointment at PCP yesterday at 2:30 a.m., patient reported she felt dizzy and was unable to walk due to shortness of breath which is why the paramedics brought her to the emergency department. I discussed the patient's condition in detail with the great grandson and he communicated understanding. 05/04/2025: Patient was seen and examined by me at the bedside today. Patient is A&O x4 today morning. She reports feeling better and that her shortness of breath has decreased. She does report of feeling tired. Patient complains that she strains likely to pass stool and has not been able to. MiraLax 17 g and docusate 100 mg has been added today. Pulmonology consult was done yesterday who suggested continuation of antibiotics and steroids. Grandson was informed regarding pulmonary doctor's decision. We will continue current management for now. Code status was discussed yesterday with patient's great grandson and patient and they set patient is full code. MRSA positive, mupirocin for nurse added today. Isolation precautions also added today. 05/05/2025-patient was seen today at bedside, patient reported feeling better today. Labs and chart reviewed. Uterine culture revealed E coli, sensitive to ceftriaxone, MRSA nares positive. Echo 2D revealed LVEF 20% with global hypokinesia, diminished RV function, severe TR, moderate MR. Left atrial enlargement. Patient reported constipation, ordered lactulose and also melatonin at night PRN for insomnia. Ordered cardiology consult for further evaluation and care of HFrEF. Ordered Lasix. Spoke to console assembler Dr. BERMEO recommended no thoracentesis at this moment, diuresis. Spoke to patient's daughter at bedside. Ordered IV Lasix 20 mg b.i.d. and carvedilol 3.125 mg p.o. b.i.d. 05/06/25- Patient was seen at bedside today. Lasix was discontinued to to increasing creatinine. Vancomycin and Doxycycline were discontinued. Patient's blood pressure was 85/46 , for which patient was given 1 dose of albumin 25gm, dobutamine and levophed were ordered but kept on standby, as blood pressure stabilised with albumin. Isolation was discontinued. Patient was due for Nuclear stress test today but the procedure was pushed to tomorrow because of pateint's soft blood pressures. New chest Xray was ordered which showed bilateral pulmonary effusions and pulmonary edema.Patient's family was bedside and her clinical status was communicated to them. Unable to initiate guideline directed medical therapy for CHF given soft BP and poor renal function. Continue with strict intake and output, daily weights, maintain fluid restriction, and low sodium diet. 05/07/25- the patient was seen at bedside today. Vitals are stable today. Patient is doing better clinically. Cardiology was consulted and they recommended to Initiate guideline directed medical therapy for CHF, hold ARNI/ACEi/ARB, MRA given poor renal function. Hold SGLT2i given UTI. Start metoprolol tartrate for rate control, switch to succinate per GDMT guidelines if patients BP tolerates dose. Continue with strict intake and output, daily weights, maintain fluid restriction, and low sodium diet. The patient was only able to undergo first half of stress test. Patient will tentatively undergo second half tomorrow (05/08/25). Objective vital signs Vital Sign Date Time Temp Pulse Resp B/P (MAP) Pulse Ox O2 Delivery O2 Flow Rate FiO2 05/07/25 14:07 108 110/83 05/07/25 12:14 96.9 19 96 96.9 05/07/25 11:35 Nasal Cannula 1.0 05/07/25 11:35 24 Total Intake and Output 05/06/25 05/06/25 05/07/25 15:00 23:00 07:00 Intake Total 50 ml 300 ml 0 ml Output Total 150 ml 550 ml Balance 50 ml 150 ml -550 ml medications Current Medications Medications Dose Ordered Sig/Mis Route Start Time Stop Time Status Last Admin Dose Admin Ceftriaxone Sodium 50 ml @ 100 mls/hr DAILY@09 IV 05/04/25 09:00 05/07/25 09:50 100 MLS/HR Levalbuterol HCl 1.25 mg Q6HR NEB 05/03/25 06:00 05/07/25 11:35 1.25 MG Ipratropium [place] 0.5 mg Q6HWA NEB 05/03/25 06:00 05/07/25 11:35 0.5 MG Diagnostic Test (Pha) 1 strip ACHS 05/03/25 07:00 05/07/25 06:17 1 STRIP Insulin Human Regular ACHS SC 05/03/25 07:00 05/06/25 17:00 2 UNITS Dextrose 50 ml UD PRN IV 05/03/25 01:45 Polyethylene Glycol 17 gm DAILYPRN PRN PO 05/04/25 12:15 Docusate Sodium 100 mg DAILY PO 05/04/25 12:15 05/05/25 09:37 100 MG Mupirocin 1 applic BID EACHNOSTRI 05/04/25 22:00 05/09/25 21:59 05/07/25 10:06 1 APPLIC Acetaminophen 650 mg Q6HP PRN PO 05/04/25 17:45 05/06/25 17:42 650 MG Pantoprazole Sodium 40 mg DAILY@0600 PO 05/06/25 06:00 Melatonin 5 mg HS PRN PO 05/05/25 22:00 Ondansetron HCl 4 mg Q4HPRN PRN IV 05/06/25 15:30 Enoxaparin Sodium 80 mg DAILY SC 05/07/25 10:00 05/07/25 09:51 80 MG Amiodarone HCl 200 mg Q12HR PO 05/07/25 22:00 Metoprolol Tartrate 12.5 mg BID PO 05/07/25 22:00 Examination General: Patient is awake and alert HEENT: Normocephalic, atraumatic, moist mucous membranes, Respiratory/pulmonary: right sided lung crackles+, mildly diminished breath sound bilaterally Cardiovascular: Tachycardia. Normal heart sounds S1 and S2 with no associated murmurs,Bp was 85/46 Abdomen: Cyst on the anterior abdominal wall Abdomen nondistended, there is no pain to palpation in any of the abdominal quadrants, no palpable masses. Extremities: No pitting edema noted on examination, peripheral Pulses 3+ Radial (R). 3+ Radial (L). 3+ Dorsalis pedis (R). 3+ Dorsalis pedis(L) Skin: No rashes or pruritus, there is no sacral edema present at this time. Neurological: Intact cranial nerves with no focal neurologic deficits laboratory and microbiology Laboratory Tests 05/07/25 04:51 05/06/25 07:20 Test 05/07/25 04:51 Range/Units Serum Glucose 111 H 74-106 mg/dL Microbiology Date/Time Source Procedure Growth Status 05/03/25 06:23 Voided Urine Urine Culture - Final Escherichia coli Complete 05/03/25 06:23 Blood Blood Culture - Preliminary NO GROWTH AFTER 72 HOURS OF INCUBATION. Resulted 05/03/25 05:30 Nose MRSA Screen - Final Methicillin Resistant S.aureus Complete Labs and/or images reviewed: Labs reviewed by me, Image(s) reviewed by me Problem List/Assessment/Plan Problem List/Assessment/Plan #Sepsis due to Pneumonia, likely gram negative rods vs. gram positive cocci #Acute hypoxic respiratory failure due to pneumonia #Right moderate pleural effusion #Atelectasis, compressive due to pleural effusion #Lactic acidosis -CXR revealed right lower lobe consolidation/ pleural effusion -Tachycardia, tachypnea, lactic acidosis -blood culture no growth so far -pending sputum culture -on IV ceftriaxone 1 g daily -doxycycline discontinued -vancomycin discontinued -Restricted fluid resuscitation in context of exacerbation of heart failure -oxygen tapering, plan is to take off oxygen if tolerating well and breathing well in room air maintain oxygen saturation more than 90% -Nebulization therapy with albuterol and ipratropium - MRSA positive, mupirocin as prescribed - isolation discontinued -nuclear test was scheduled for today-could only complete half, rest half will be tomorrow 05/08/25 #Acute exacerbation of HFrEF, LVEF 20%, global hypokinesia # severe TR, moderate MR. Left atrial enlargement. -previous Echocardiogram from 02/2024 shows LVEF 45%, grade 1 diastolic dysfunction. Repeat echocardiogram showed EF 20% with severe TR and moderate MR -CXR revealed right lower lobe consolidation/ pleural effusion -lasix discontinued. -ordered carvedilol 3.125 mg p.o. b.i.d. -Strict I&O #UTI -urine analysis showed urine clarity turbid, blood +1, nitrites +1, leukocyte esterase 3+, RBC 5, WBC 19, bacteria many, squamous epithelial cells few, mucus few, hyaline casts moderate, urine yeast budding occasional -urine culture E coli >100,000 CFUs -IV ceftriaxone 1 g daily #Presyncope, rule out cardiac etiology -Echocardiogram-LVEF 20%, global hypokinesia -Orthostatic Vitals ordered -Monitor on telemetry for life-threatening arrhythmias #Paroxysmal atrial fibrillation with RVR -On apixaban at home -continue amiodarone as prescribed -continue Lovenox as prescribed #Diabetes mellitus type 2,A1c 5.9 -Sliding scale insulin -Monitor blood glucose -Diabetes education -Diabetic diet #Transaminitis -Hepatitis panel -Liver ultrasound shows gallbladder wall thickening, no gallstones visualized #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
--- NOTE | 2025-05-07 15:53 | DVHCONRES ---
Date Seen: May 07, 2025 Resident Creating Document: GIA JACOB RESDIENT History of Present Illness Gege Rodriguez is an 89 year old female with past medical history of hypertension, hyperlipidemia, type 2 diabetes mellitus, who presented to the ER with chief complain of shortness of breath. She reported having difficulty breathing since 1 day, present while resting, associated with back pain and dizziness. Patient describes pain in lower back as vague, 9/10, nonradiating. Since 1 day, she has been feeling lightheaded, with difficulty in standing up, causing her to lose balance. These symptoms urged her visit to the urgent care, where she started complaining of nausea and lethargy and was brought to the ER by paramedics. She denies fever, chills, sick contacts or recent travel. She does not use any home oxygen, currently saturating on 3 L oxygen. Family History: Diabetes mellitus G8 BROTHER FH: cancer Allergies: Coded Allergies: Penicillins (Verified Allergy, Unknown, 03/30/24) Home Meds Reported Medications Acetaminophen (Acetaminophen) 325 Mg Tab, 325 MG PO PRN, MG 0 Refills 05/03/25 Current Medications Current Medications Medications (Trade) Dose Ordered Sig/Mis Route PRN Reason Start Time Stop Time Status Last Admin Enoxaparin Sodium (Lovenox) 80 mg DAILY SC 05/07/25 10:00 05/07/25 09:51 Amiodarone HCl 250 ml @ 16.667 mls/ hr Q15H IV 05/07/25 08:15 05/07/25 08:02 DC Amiodarone HCl 250 ml @ 33.333 mls/ hr Q7H30M IV 05/07/25 08:15 05/07/25 10:58 DC 05/07/25 08:15 Amiodarone HCl (Cordarone Tablet) 200 mg Q12HR PO 05/07/25 22:00 Metoprolol Tartrate (Lopressor Tablet) 12.5 mg BID PO 05/07/25 22:00 Review of Systems Patient seen and examined at the bedside. Patient is complaining of shortness of breaths. Vital Signs Vital Signs Date Time Temp Pulse Resp B/P (MAP) Pulse Ox O2 Delivery O2 Flow Rate FiO2 05/07/25 14:07 108 110/83 05/07/25 12:14 96.9 19 96 96.9 10/21/25 11:35 Nasal Cannula 1.0 05/07/25 11:35 24 Physical Exam General Appearance: Alert, Oriented X3, Cooperative, No acute distress HEENT: Atraumatic, PERRLA, EOMI, Mucous membrane moist/pink Respiratory: Bilateral lower zone mild crackles Cardiovascular: Regular rate, Normal S1, Normal S2, No murmurs, no chest wall tenderness Abdominal: Normal bowel sounds, Soft, No tenderness, No hepatospenomegaly, No masses Extremities: Bilateral trace edema Skin: No rashes, No breakdown, No significant lesion Neuro: Normal gait, Normal speech, Strength at 5/5 X4 ext, Normal tone, Sensation intact, Cranial nerves 3-12 NL, Reflexes 2+ Psych/Mental Status: Mental status NL, Mood NL Labs/Diagnostic Data Labs Test 05/07/25 12:21 05/07/25 04:51 05/06/25 10:37 05/06/25 07:20 Range/Units POC Glucose 93 70-106 mg/dl Sodium Level 136 136-145 mmol/L Potassium Level 3.7 3.5-5.1 mmol/L Chloride Level 99 98-107 mmol/L Carbon Dioxide Level 23 20-31 mmol/L Anion Gap 14 5-15 Blood Urea Nitrogen 41 H 9-23 mg/dL Creatinine 2.15 H 0.550-1.02 mg/dL Glomerular Filtration Rate Calc 22 >90 mL/min BUN/Creatinine Ratio 19.1 10.0-20.0 Serum Glucose 111 H 74-106 mg/dL Calcium Level 9.1 8.7-10.4 mg/dL Phosphorus Level 4.8 2.4-5.1 mg/dL Total Bilirubin 0.6 0.2-1.0 mg/dL Aspartate Amino Transferase (AST) 80 H 13-40 U/L Alanine Aminotransferase (ALT) 69 H 7-40 U/L Alkaline Phosphatase 77 46-116 U/L Total Protein 5.9 5.7-8.2 g/dL Albumin 3.7 3.2-4.8 g/dL Parathyroid Hormone (Intact) 360.0 H 18.4-80.1 pg/mL Magnesium Level 2.2 1.6-2.6 mg/dL Random Vancomycin Level 12.6 H 5-10 ug/mL White Blood Count 6.7 4.4-10.8 10^3/uL Red Blood Count 4.66 4.0-5.20 10^6/uL Hemoglobin 13.0 12.2-16.2 g/dL Hematocrit 41.6 36.0-46.0 % Mean Corpuscular Volume 89.3 80.0-100.0 fL Mean Corpuscular Hemoglobin 28.0 28.0-32.0 pg Mean Corpuscular Hemoglobin Concent 31.3 L 32.0-36.0 g/dL Red Cell Distribution Width 17.0 H 11.8-14.3 % Platelet Count 164 140-450 10^3/uL Mean Platelet Volume 8.9 6.9-10.8 fL Neutrophils (%) (Auto) 84.1 H 37.0-80.0 % Lymphocytes (%) (Auto) 8.0 L 10.0-50.0 % Monocytes (%) (Auto) 7.5 0.0-12.0 % Eosinophils (%) (Auto) 0.0 0.0-7.0 % Basophils (%) (Auto) 0.4 0.0-2.0 % Neutrophils # (Auto) 5.6 1.6-8.6 10 ^3/uL Lymphocytes # (Auto) 0.5 0.4-5.4 10 ^3/uL Monocytes # (Auto) 0.5 0-1.3 10 ^3/uL Eosinophils # (Auto) 0 0-0.8 10 ^3/uL Basophils # (Auto) 0 0-0.2 10 ^3/uL Nucleated Red Blood Cells 2.0 % Test 05/03/25 08:15 05/03/25 02:56 05/03/25 01:58 05/02/25 21:15 Range/Units Lactic Acid Level 1.7 0.4-2.0 mmol/L Influenza Type A Antigen Negative Negative Influenza Type B Antigen Negative Negative SARS-CoV-2 Antigen (Rapid) Negative NEGATIVE Blood Gas Specimen Type Venous Blood Gas Sample Site Vbg - n/a Blood Gas Patient Temperature 37.0 Arterial Blood Date Drawn [id number] Daniel Test N/a Venous Blood pH 7.315 L 7.320-7.430 Venous Blood pCO2 at Patient Temp 40.8 38.0-54.0 mmHg Venous Blood pO2 at Patient Temp 39.5 23.0-48.0 mmHg Venous Blood HCO3 20.3 L 22.0-29.0 mmol/L Venous Blood Base Excess -5.5 L -2.0-3.0 mmol/L Blood Gas Liter Flow 2.00 Blood Gas Modality Vbg - n/a FiO2 % 28.0 Prothrombin Time 14.9 H 9.3-11.8 sec Prothrombin Time INR 1.46 H 0.9-1.15 Activated Partial Thromboplast Time 27.0 24.5-34.5 SEC Test 05/02/25 19:58 05/02/25 16:28 05/02/25 06:23 Range/Units Troponin I High Sensitivity 24 </=34 ng/L Vitamin B12 Level 787 211-911 pg/mL Vitamin D 25-Hydroxy 48.5 30.0-100 ng/mL Hemoglobin A1c 5.9 H <5.7 % A1C Direct Bilirubin 0.8 H <0.3 mg/dL C-Reactive Protein High Sensitivity 2.40 H <1.0 mg/dL B-Type Natriuretic Peptide 966.80 0-100 pg/mL Triglycerides Level 98 < 150 mg/dL Cholesterol Level 157 < 200 mg/dL LDL Cholesterol 89 < 100 mg/dL HDL Cholesterol 50 40-59 mg/dL Lipase 23 12-53 U/L Thyroid Stimulating Hormone (TSH) 2.72 0.55-4.78 uIU/mL Urine Color Yellow Yellow Urine Clarity Turbid H Clear Urine pH 5.0 5.0-9.0 Urine Specific [place] 1.014 1.001-1.035 Urine Protein Negative Negative Urine Ketones Negative Negative Urine Blood 1+ H Negative /uL Urine Nitrite 1+ H Negative Urine Bilirubin Negative Negative Urine Urobilinogen Normal Negative mg/dL Urine Leukocyte Esterase 3+ Negative /uL Urine RBC 5 0 - 4 /hpf Urine Microscopic WBC 19 H 0-5 /HPF Urine Squamous Epithelial Cells Few <5 /hpf Urine Bacteria Many H None Seen /hpf Urine Hyaline Casts Mod 0 - 2 /lpf Urine Mucus Few None Seen Urine Yeast (Budding) Occasional None Seen /hpf Urine Glucose Normal Normal mg/dL Urine Opiates Screen Neg NEGATIVE Urine Fentanyl Screen Neg NEGATIVE Urine Barbiturates Screen Neg NEGATIVE Urine Phencyclidine Screen Neg NEGATIVE Urine Amphetamines Screen Neg NEGATIVE Urine Benzodiazepines Screen Neg NEGATIVE Urine Cocaine Screen Neg NEGATIVE Urine Cannabinoids Screen Neg NEGATIVE Microbiology Date/Time Source Procedure Growth Status 05/03/25 06:23 Voided Urine Urine Culture - Final Escherichia coli Complete 05/03/25 06:23 Blood Blood Culture - Preliminary NO GROWTH AFTER 72 HOURS OF INCUBATION. Resulted 05/03/25 05:30 Nose MRSA Screen - Final Methicillin Resistant S.aureus Complete Assessment This is an 89-year-old lady with past medical history of CHF (EF 20%), paroxysmal AFib (on Eliquis), severe TR, hypertension, and diabetes type 2 came to the hospital due to shortness of breaths. Nephrology consulted due to MATT. 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 No vascularity. Consider characterization with CT abdomen if there is clinical concern for infection or blood products with small echogenic lesion in the midpole of the right kidney. DDX includes AML, hemorrhagic cyst, or nonshadowing nonobstructive calculus. Plan/recommendation: (Dr. Cardoso) * Due to low blood pressure, and worsening RFT, hold diuretic for today * We will assess the patient tomorrow, and may resume diuretics * We will follow up with the patient Thank you for giving us the opportunity to take care of your patient. Please call back if you have any questions/concerns. Plan discussed with: Patient, Other (RN) GIA JACOB May 07, 2025 15:53
[2025-05-07] MEDS: AMIODARONE HCL 200 MG TAB PO SCH (21:26)
[2025-05-07] MEDS: METOPROLOL TARTRATE 25 MG TAB PO SCH (21:26)
[2025-05-08] VITALS (18 sets, daily range): BP systolic 103–122; BP diastolic 69–96; PULSE 59–128; RESP 14–20; TEMP 97.5–99.4; O2SAT 94–100
[2025-05-08] MEDS: MELATONIN 5 MG TAB PO PRN (00:49)
[2025-05-08 05:18] LABS: Hematocrit 39.9 % (36.0-46.0); Hemoglobin 12.8 g/dL (12.2-16.2); Mean Corpuscular Hemoglobin 28.7 pg (28.0-32.0); Mean Corpuscular Volume 89.0 fL (80.0-100.0); Nucleated Red Blood Cells % 2.3 %
[2025-05-08 05:28] LABS: Chloride 103 mmol/L (98-107); Potassium 3.5 mmol/L (3.5-5.1); Sodium 139 mmol/L (136-145)
[2025-05-08 05:29] LABS: Anion Gap 11 (5-15); Calcium 9.1 mg/dL (8.7-10.4); Carbon Dioxide 25 mmol/L (20-31)
[2025-05-08 05:34] LABS: BUN/Creatinine Ratio 19.9 (10.0-20.0); Glucose 88 mg/dL (74-106)
[2025-05-08 05:35] LABS: Blood Urea Nitrogen 33 mg/dL (9-23)
[2025-05-08] MEDS: REGADENOSON 0.4 MG/5 ML SYRG IV ONE ×2 (08:10→08:36)
--- NOTE | 2025-05-08 12:39 | DVHSR ---
APPROVED REPORT Exam: Nuclear Stress Test BMI: 0 Stress Test Details HR Max Heart Rate (APMHR): 132.194462 bpm Target HR (85% APMHR): 112.396424 bpm BP ECG Stress ECG Conclusion lvef 41% no severe ischemia noted moderate LV dysfucntion NM EXAM: Myocardial Perfusion REST/STRESS Imaging Protocol: Rest Tc-99m/Stress Tc-99m 2 days Resting Data Rest SPECT myocardial perfusion imaging was performed in supine position 60 minutes following the int ravenous injection of 9.8 mCi of Tc-99m Sestamibi. Time of rest injection: 08:00 Date: 05/07/2025 Time of rest imagin:00 Date: 05/07/2025 Administration Route: IV Administration Site: Other Pharmacologic Stress Pharmacologic stress test was performed by injecting Regadenoson 0.4 mg IV push followed by the intra venous injection of 21.12 mCi of Tc-99m Sestamibi. Time of stress injection: 08:37 Date: 05/08/2025 Time of stress imagin:37 Date: 05/08/2025 Administration Route: IV Administration Site: Other Gated Stress SPECT was performed 60 minutes after stress injection. The images were gated to evaluate regional wall motion and calculate left ventricular ejection fracti on. Stress only was performed in the Supine position. Comments Isotope injected in Right IJ central line. Nuclear Conclusion Nuclear Findings: negative for ischemia lvef 41% no severe ischemia noted moderate LV dysfucntion
--- NOTE | 2025-05-08 13:39 | DVHPN2 ---
Consult Progress Note Date Seen: May 08, 2025 Subjective Review of Systems: CVS:Normal, RESPIRATORY:Normal, NEURO:Normal Other Systems: Denies any cardiac symptoms Objective vital signs Vital Sign Date Time Temp Pulse Resp B/P (MAP) Pulse Ox O2 Delivery O2 Flow Rate FiO2 05/08/25 13:12 97.6 81 16 103/74 (84) 98 97.6 05/08/25 12:03 Nasal Cannula 1.0 05/08/25 12:03 24 Total Intake and Output 05/07/25 05/07/25 05/08/25 15:00 23:00 07:00 Intake Total 50 ml 400 ml 350 ml Output Total 250 ml 1700 ml Balance 50 ml 150 ml -1350 ml medications Current Medications Medications Dose Ordered Sig/Mis Route Start Time Stop Time Status Last Admin Dose Admin Ceftriaxone Sodium 50 ml @ 100 mls/hr DAILY@09 IV 05/04/25 09:00 05/08/25 10:41 100 MLS/HR Levalbuterol HCl 1.25 mg Q6HR NEB 05/03/25 06:00 05/08/25 12:03 1.25 MG Ipratropium [place] 0.5 mg Q6HWA NEB 05/03/25 06:00 05/08/25 12:03 0.5 MG Diagnostic Test (Pha) 1 strip ACHS 05/03/25 07:00 05/08/25 11:09 1 STRIP Insulin Human Regular ACHS SC 05/03/25 07:00 05/06/25 17:00 2 UNITS Dextrose 50 ml UD PRN IV 05/03/25 01:45 Polyethylene Glycol 17 gm DAILYPRN PRN PO 05/04/25 12:15 Docusate Sodium 100 mg DAILY PO 05/04/25 12:15 05/08/25 10:42 100 MG Mupirocin 1 applic BID EACHNOSTRI 05/04/25 22:00 05/09/25 21:59 05/08/25 10:00 1 APPLIC Acetaminophen 650 mg Q6HP PRN PO 05/04/25 17:45 05/08/25 00:49 650 MG Pantoprazole Sodium 40 mg DAILY@0600 PO 05/06/25 06:00 Melatonin 5 mg HS PRN PO 05/05/25 22:00 05/08/25 00:49 5 MG Ondansetron HCl 4 mg Q4HPRN PRN IV 05/06/25 15:30 Enoxaparin Sodium 80 mg DAILY SC 05/07/25 10:00 05/08/25 10:41 80 MG Amiodarone HCl 200 mg Q12HR PO 05/07/25 22:00 05/08/25 10:42 200 MG Metoprolol Tartrate 12.5 mg BID PO 05/07/25 22:00 05/08/25 10:42 12.5 MG Examination: LUNGS:Normal, CVS:Normal (A-fib controlled rate), NEURO:Normal laboratory and microbiology Laboratory Tests 05/08/25 04:53 Test 05/08/25 04:53 Range/Units Serum Glucose 88 74-106 mg/dL Problem List/Assessment/Plan Problem List/Assessment/Plan Sepsis with PNA/UTI [place] HFrEF, NYHA class III Paroxysmal atrial fibrillation with rapid ventricular response (on Eliquis), controlled rate Tricuspid valve regurgitation, moderate to severe degree Mitral valve regurgitation, moderate degree Hypertension Bilateral pleural effusions Acute kidney injury Transaminitis Type 2 diabetes mellitus Plan/Recommendations (Dr. Pruitt) Transthoracic echocardiogram reveals an EF of 20% with global hypokinesis. Cardiolite stress test deemed to be non-ischemic (see complete report). Guideline directed medical therapy for HFrEF only includes BB given MATT and UTI (transition to metoprolol succinate prior to discharge). Preload and afterload reduction as tolerated, strict intake and output, daily weights, maintain fluid restrictions, and low sodium diet. Continue antiarrhythmic therapy, amiodarone. Transition to DOAC therapy with low-dose Eliquis ([id number] VASc score: 5 points, HAS-BLED score: 1 point). Currently at a controlled rate and cardiac stable. We will sign off at this time. Kindly call if in need of further follow-up. Thank you for allowing us to care for this patient. This medical document was created using an electronic medical record system with voice recognition software and computerized dictation system. Although this document has been carefully reviewed, there might still be some phonetic and typographical errors. Occasional wrong-word or ``sound-alike substitutions may have occurred due to the inherent limitations of voice recognition software. These areas are purely typographical due to imperfections of the software programs and do not reflect any compromise in the patient's medical care. Please read the chart carefully and recognize, using context, where these substitutions have occurred. Plan discussed with: Patient, Other Dietary Evaluation Review Comments: Nutrition Recommendation 1) CCHO 60gm + cardiac 2) Monitor PO intake, lab values, weight trend, and I/O Expected Outcomes/Goals: Lab values to improve Fu 3-5 days Date of Service: May 08, 2025 Billing Provider: WILLIAMS CHAN Cardiology Common Codes: [id number] HOSP CARE(High WILLIAMS CHAN May 08, 2025 13:38
--- NOTE | 2025-05-08 16:28 | DVHPNRES ---
Progress Note Date Seen: May 08, 2025 Resident Creating Document: GIA JACOB DEANDRE Has the PT tested + for MRSA If YES, has PT been informed?: Yes Medical Necessity Reason Pt with a Central, PICC or Fol: No Subjective Review of Systems Patient seen and examined at the bedside. Patient is feeling better, but still complaining of shortness of breaths. Objective vital signs Vital Sign Date Time Temp Pulse Resp B/P (MAP) Pulse Ox O2 Delivery O2 Flow Rate FiO2 05/08/25 13:12 97.6 81 16 103/74 (84) 98 97.6 05/08/25 12:03 Nasal Cannula 1.0 05/08/25 12:03 24 Total Intake and Output 05/07/25 05/07/25 05/08/25 15:00 23:00 07:00 Intake Total 50 ml 400 ml 350 ml Output Total 250 ml 1700 ml Balance 50 ml 150 ml -1350 ml medications Current Medications Medications Dose Ordered Sig/Mis Route Start Time Stop Time Status Last Admin Dose Admin Ceftriaxone Sodium 50 ml @ 100 mls/hr DAILY@09 IV 05/04/25 09:00 05/08/25 10:41 100 MLS/HR Levalbuterol HCl 1.25 mg Q6HR NEB 05/03/25 06:00 05/08/25 12:03 1.25 MG Ipratropium [place] 0.5 mg Q6HWA NEB 05/03/25 06:00 05/08/25 12:03 0.5 MG Diagnostic Test (Pha) 1 strip ACHS 05/03/25 07:00 05/08/25 11:09 1 STRIP Insulin Human Regular ACHS SC 05/03/25 07:00 05/06/25 17:00 2 UNITS Dextrose 50 ml UD PRN IV 05/03/25 01:45 Polyethylene Glycol 17 gm DAILYPRN PRN PO 05/04/25 12:15 Docusate Sodium 100 mg DAILY PO 05/04/25 12:15 05/08/25 10:42 100 MG Mupirocin 1 applic BID EACHNOSTRI 05/04/25 22:00 05/09/25 21:59 05/08/25 10:00 1 APPLIC Acetaminophen 650 mg Q6HP PRN PO 05/04/25 17:45 05/08/25 00:49 650 MG Pantoprazole Sodium 40 mg DAILY@0600 PO 05/06/25 06:00 Melatonin 5 mg HS PRN PO 05/05/25 22:00 05/08/25 00:49 5 MG Ondansetron HCl 4 mg Q4HPRN PRN IV 05/06/25 15:30 Amiodarone HCl 200 mg Q12HR PO 05/07/25 22:00 05/08/25 10:42 200 MG Metoprolol Tartrate 12.5 mg BID PO 05/07/25 22:00 05/08/25 10:42 12.5 MG Apixaban 2.5 mg BID PO 05/08/25 22:00 Furosemide 20 mg DAILY PO 05/09/25 10:00 Examination General Appearance: Alert, Oriented X3, Cooperative, No acute distress HEENT: Atraumatic, PERRLA, EOMI, Mucous membrane moist/pink Respiratory: Bilateral lower zone mild crackles Cardiovascular: Regular rate, Normal S1, Normal S2, No murmurs, no chest wall tenderness Abdominal: Normal bowel sounds, Soft, No tenderness, No hepatospenomegaly, No masses Extremities: Bilateral trace edema Skin: No rashes, No breakdown, No significant lesion Neuro: Normal gait, Normal speech, Strength at 5/5 X4 ext, Normal tone, Sensation intact, Cranial nerves 3-12 NL, Reflexes 2+ Psych/Mental Status: Mental status NL, Mood NL laboratory and microbiology Laboratory Tests 05/08/25 04:53 Test 05/08/25 04:53 Range/Units Serum Glucose 88 74-106 mg/dL Microbiology Date/Time Source Procedure Growth Status 05/03/25 06:23 Voided Urine Urine Culture - Final Escherichia coli Complete 05/03/25 06:23 Blood Blood Culture - Final NO GROWTH AFTER 5 DAYS OF INCUBATION. Complete 05/03/25 05:30 Nose MRSA Screen - Final Methicillin Resistant S.aureus Complete Labs and/or images reviewed: Labs reviewed by me, Image(s) reviewed by me Problem List/Assessment/Plan Problem List/Assessment/Plan This is an 89-year-old lady with past medical history of CHF (EF 20%), paroxysmal AFib (on Eliquis), severe TR, hypertension, and diabetes type 2 came to the hospital due to shortness of breaths. Nephrology consulted due to MATT. 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 No vascularity. Consider characterization with CT abdomen if there is clinical concern for infection or blood products with small echogenic lesion in the midpole of the right kidney. DDX includes AML, hemorrhagic cyst, or nonshadowing nonobstructive calculus. Plan/recommendation: (Dr. Cardoso) * Due to low blood pressure, and worsening RFT, hold diuretic for now * We will assess the patient tomorrow, and may resume diuretics * We will follow up with the patient Thank you for giving us the opportunity to take care of your patient. Please call back if you have any questions/concerns. Plan discussed with: Patient, Other (RN) Dietary Evaluation Review Comments: Nutrition Recommendation 1) CCHO 60gm + cardiac 2) Monitor PO intake, lab values, weight trend, and I/O Expected Outcomes/Goals: Lab values to improve Fu 3-5 days GIA JACOB May 08, 2025 16:28
[2025-05-08] MEDS: LEVALBUTEROL HCL 1.25 MG/3 ML NEB ONE (18:44)
[2025-05-08] MEDS: IPRATROPIUM BROM 0.5 MG/2.5ML INH SOL ONE (18:44)
--- NOTE | 2025-05-08 18:55 | DVHPNRES ---
Progress Note Date Seen: May 08, 2025 Resident Creating Document: TANIA IRELAND RESIDENT Has the PT tested + for MRSA If YES, has PT been informed?: Yes Medical Necessity Reason Pt with a Central, PICC or Fol: No Subjective Review of Systems Gege Rodriguez is an 89 year old female with past medical history of hypertension, hyperlipidemia, type 2 diabetes mellitus, who presented to the ER with chief complaint of shortness of breath. She reported having difficulty breathing since 1 day, present while resting, associated with back pain and dizziness. Patient describes pain in lower back as vague, 9/10, nonradiating. Since 1 day, she has been feeling lightheaded, with difficulty in standing up, causing her to lose balance. These symptoms urged her visit to the urgent care, where she started complaining of nausea and lethargy and was brought to the ER by paramedics. She denies fever, chills, sick contacts or recent travel. She does not use any home oxygen, currently saturating on 3 L oxygen. Previous hospitalization: In 2022 for influenza PMHx: Hypertension, hyperlipidemia, type 2 diabetes mellitus PSHx: Hip replacement surgery and 2 sections Social history: Quit smoking in 2008, 40 pack per year smoking history. Denies alcohol, recreational drug use. Full code, next to kin his grandson. Home medication: Bailey, unsure of other home medication Allergic history: penicillins Patient seen and examined at bedside. Patient is alert and oriented to time, place person and responding to all questions. Patient complains of generalised weakness. Eyes: No Pain, No Vision change, No Conjunctivae inflammation, No Eyelid inflammation, No Redness ENT: No Ear pain, No Ear discharge, No Nose pain, No Nose discharge, No Nose congestion, No Mouth pain, No Mouth swelling, No Throat pain, No Throat swelling Cardiovascular: No Chest Pain, No Palpitations, No Orthopnea, No Paroxysmal No Dyspnea, No Edema, No Lt Headedness Respiratory: No Cough, No Dry, No Shortness of breath, No SOB with exertion, No Wheezing, No Hemoptysis, No Pleuritic Pain, No Sputum Gastrointestinal: No Nausea, No Vomiting, No Abdominal Pain, No Diarrhea, No Constipation, No Melena, No Hematochezia Genitourinary: No Dysuria, No Frequency, No Incontinence, No Hematuria, No Retention ROS: 05/03/25 Patient was examined at bedside today. patient was drowsy in the morning but was fully oriented ANO x4 in the afternoon. Patient stated that she has been taking Eliquis daily and patient's heart rate has been consistently high due to her atrial fibrillation so we started her on amiodarone bolus and then continuous drip. I spoke to the patient's great grandson who is her caregiver and he states that the patient might have dementia that she has been mixing things up and recalling old memories more often these days. As per the grandson patient has been weak and fatigued for whole week and her face and feet have swollen up. He also reports that patient has been having shortness of breath and after the appointment at PCP yesterday at 2:30 a.m., patient reported she felt dizzy and was unable to walk due to shortness of breath which is why the paramedics brought her to the emergency department. I discussed the patient's condition in detail with the great grandson and he communicated understanding. 05/04/2025: Patient was seen and examined by me at the bedside today. Patient is A&O x4 today morning. She reports feeling better and that her shortness of breath has decreased. She does report of feeling tired. Patient complains that she strains likely to pass stool and has not been able to. MiraLax 17 g and docusate 100 mg has been added today. Pulmonology consult was done yesterday who suggested continuation of antibiotics and steroids. Grandson was informed regarding pulmonary doctor's decision. We will continue current management for now. Code status was discussed yesterday with patient's great grandson and patient and they set patient is full code. MRSA positive, mupirocin for nurse added today. Isolation precautions also added today. 05/05/2025-patient was seen today at bedside, patient reported feeling better today. Labs and chart reviewed. Uterine culture revealed E coli, sensitive to ceftriaxone, MRSA nares positive. Echo 2D revealed LVEF 20% with global hypokinesia, diminished RV function, severe TR, moderate MR. Left atrial enlargement. Patient reported constipation, ordered lactulose and also melatonin at night PRN for insomnia. Ordered cardiology consult for further evaluation and care of HFrEF. Ordered Lasix. Spoke to film crew member Dr. BERMEO recommended no thoracentesis at this moment, diuresis. Spoke to patient's daughter at bedside. Ordered IV Lasix 20 mg b.i.d. and carvedilol 3.125 mg p.o. b.i.d. 05/06/25- Patient was seen at bedside today. Lasix was discontinued to to increasing creatinine. Vancomycin and Doxycycline were discontinued. Patient's blood pressure was 85/46 , for which patient was given 1 dose of albumin 25gm, dobutamine and levophed were ordered but kept on standby, as blood pressure stabilised with albumin. Isolation was discontinued. Patient was due for Nuclear stress test today but the procedure was pushed to tomorrow because of pateint's soft blood pressures. New chest Xray was ordered which showed bilateral pulmonary effusions and pulmonary edema.Patient's family was bedside and her clinical status was communicated to them. Unable to initiate guideline directed medical therapy for CHF given soft BP and poor renal function. Continue with strict intake and output, daily weights, maintain fluid restriction, and low sodium diet. 05/07/25- the patient was seen at bedside today. Vitals are stable today. Patient is doing better clinically. Cardiology was consulted and they recommended to Initiate guideline directed medical therapy for CHF, hold ARNI/ACEi/ARB, MRA given poor renal function. Hold SGLT2i given UTI. Start metoprolol tartrate for rate control, switch to succinate per GDMT guidelines if patients BP tolerates dose. Continue with strict intake and output, daily weights, maintain fluid restriction, and low sodium diet. The patient was only able to undergo first half of stress test. Patient will tentatively undergo second half tomorrow (05/08/25). 05/08/25- the patient was seen at bedside today. Her Cardiolite stress test was completed today and was negative for ischemia. Creatinine reduced from 2.15 to 1.66. Nephrology recommended keeping Lasix on hold today as well. PT evaluation was requested. The patient will possibly be discharged tomorrow to SNF for PT. Objective vital signs Vital Sign Date Time Temp Pulse Resp B/P (MAP) Pulse Ox O2 Delivery O2 Flow Rate FiO2 05/08/25 16:31 97.9 124 20 107/70 (82) 96 97.9 05/08/25 12:03 Nasal Cannula 1.0 05/08/25 12:03 24 Total Intake and Output 05/07/25 05/07/2505/08/25 15:00 23:00 07:00 Intake Total 50 ml 400 ml 350 ml Output Total 250 ml 1700 ml Balance 50 ml 150 ml -1350 ml medications Current Medications Medications Dose Ordered Sig/Mis Route Start Time Stop Time Status Last Admin Dose Admin Ceftriaxone Sodium 50 ml @ 100 mls/hr DAILY@09 IV 05/04/25 09:00 05/08/25 10:41 100 MLS/HR Levalbuterol HCl 1.25 mg Q6HR NEB 05/03/25 06:00 05/08/25 18:44 1.25 MG Ipratropium [place] 0.5 mg Q6HWA NEB 05/03/25 06:00 05/08/25 18:44 0.5 MG Diagnostic Test (Pha) 1 strip ACHS 05/03/25 07:00 05/08/25 11:09 1 STRIP Insulin Human Regular ACHS SC 05/03/25 07:00 05/06/25 17:00 2 UNITS Dextrose 50 ml UD PRN IV 05/03/25 01:45 Polyethylene Glycol 17 gm DAILYPRN PRN PO 05/04/25 12:15 Docusate Sodium 100 mg DAILY PO 05/04/25 12:15 05/08/25 10:42 100 MG Mupirocin 1 applic BID EACHNOSTRI 05/04/25 22:00 05/09/25 21:59 05/08/25 10:00 1 APPLIC Acetaminophen 650 mg Q6HP PRN PO 05/04/25 17:45 05/08/25 00:49 650 MG Pantoprazole Sodium 40 mg DAILY@0600 PO 05/06/25 06:00 Melatonin 5 mg HS PRN PO 05/05/25 22:00 05/08/25 00:49 5 MG Ondansetron HCl 4 mg Q4HPRN PRN IV 05/06/25 15:30 Amiodarone HCl 200 mg Q12HR PO 05/07/25 22:00 05/08/25 10:42 200 MG Metoprolol Tartrate 12.5 mg BID PO 05/07/25 22:00 05/08/25 10:42 12.5 MG Apixaban 2.5 mg BID PO 05/08/25 22:00 Furosemide 20 mg DAILY PO 05/09/25 10:00 Examination General: Patient is awake and alert HEENT: Normocephalic, atraumatic, moist mucous membranes, Respiratory/pulmonary: right sided lung crackles+, mildly diminished breath sound bilaterally Cardiovascular: Tachycardia. Normal heart sounds S1 and S2 with no associated murmurs,Bp was 85/46 Abdomen: Cyst on the anterior abdominal wall Abdomen nondistended, there is no pain to palpation in any of the abdominal quadrants, no palpable masses. Extremities: No pitting edema noted on examination, peripheral Pulses 3+ Radial (R). 3+ Radial (L). 3+ Dorsalis pedis (R). 3+ Dorsalis pedis(L) Skin: No rashes or pruritus, there is no sacral edema present at this time. Neurological: Intact cranial nerves with no focal neurologic deficits laboratory and microbiology Laboratory Tests 05/08/25 04:53 Test 05/08/25 04:53 Range/Units Serum Glucose 88 74-106 mg/dL Microbiology Date/Time Source Procedure Growth Status 05/03/25 06:23 Voided Urine Urine Culture - Final Escherichia coli Complete 05/03/25 06:23 Blood Blood Culture - Final NO GROWTH AFTER 5 DAYS OF INCUBATION. Complete 05/03/25 05:30 Nose MRSA Screen - Final Methicillin Resistant S.aureus Complete Labs and/or images reviewed: Labs reviewed by me, Image(s) reviewed by me Problem List/Assessment/Plan Problem List/Assessment/Plan #Sepsis due to Pneumonia, likely gram negative rods vs. gram positive cocci #Acute hypoxic respiratory failure due to pneumonia #Right moderate pleural effusion #Atelectasis, compressive due to pleural effusion #Lactic acidosis -CXR revealed right lower lobe consolidation/ pleural effusion -Tachycardia, tachypnea, lactic acidosis -blood culture no growth so far -on IV ceftriaxone 1 g daily -doxycycline discontinued -vancomycin discontinued -Restricted fluid resuscitation in context of exacerbation of heart failure -oxygen tapering, plan is to take off oxygen if tolerating well and breathing well in room air maintain oxygen saturation more than 90% -Nebulization therapy with albuterol and ipratropium - MRSA positive, mupirocin as prescribed - isolation discontinued -nuclear test showed no ischemic changes #Acute exacerbation of HFrEF, LVEF 20%, global hypokinesia # severe TR, moderate MR. Left atrial enlargement. -previous Echocardiogram from 02/2024 shows LVEF 45%, grade 1 diastolic dysfunction. Repeat echocardiogram showed EF 20% with severe TR and moderate MR -CXR revealed right lower lobe consolidation/ pleural effusion -lasix kept on hold -carvedilol 3.125 mg p.o. b.i.d. -Strict I&O #UTI -urine analysis showed urine clarity turbid, blood +1, nitrites +1, leukocyte esterase 3+, RBC 5, WBC 19, bacteria many, squamous epithelial cells few, mucus few, hyaline casts moderate, urine yeast budding occasional -urine culture E coli >100,000 CFUs -IV ceftriaxone 1 g daily #Presyncope, rule out cardiac etiology -Echocardiogram-LVEF 20%, global hypokinesia -Orthostatic Vitals -Monitor on telemetry for life-threatening arrhythmias #Paroxysmal atrial fibrillation with RVR -On apixaban at home -continue amiodarone as prescribed -continue Lovenox as prescribed #Diabetes mellitus type 2,A1c 5.9 -Sliding scale insulin -Monitor blood glucose -Diabetes education -Diabetic diet #Transaminitis -Liver ultrasound shows gallbladder wall thickening, no gallstones visualized -repeat CMP tomorrow #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 hyperparathyroidism -Avoiding nephrotoxins like NSAIDS, contrast #Hx of nicotine dependence Diet: Cardiac DVT prophylaxis: Lovenox GI prophylaxis Protonix Code status:Full code Goals of care discussed with patient and family for >20 minutes Plan discussed with Dr Jennings critical care time 45 mins Plan discussed with: Patient My Orders My Orders Orders - TANIA IRELAND RESIDENT Procedure Category Date Status Time Chest Percussion Tx RT 05/08/25 Logged SUB 09:31 * Nail Setter CONS 05/08/25 Transmitted Consult Dietary Evaluation Review Comments: Nutrition Recommendation 1) CCHO 60gm + cardiac 2) Monitor PO intake, lab values, weight trend, and I/O Expected Outcomes/Goals: Lab values to improve Fu 3-5 days Date of Service: May 08, 2025 Billing Provider: TRISTEN JENNINGS MD Common Visit Codes: 39817-[id number] CARE 30-74 MIN TANIA IRELAND May 08, 2025 18:55 TRISTEN JENNINGS MD May 09, 2025 08:32
--- NOTE | 2025-05-08 19:22 | DVHPN2 ---
Progress Note - Dictate Date Seen: May 08, 2025 Has the PT tested + for MRSA If YES, has PT been informed?: Yes Medical Necessity Reason Pt with a Central, PICC or Fol: No vital signs Vital Sign Date Time Temp Pulse Resp B/P (MAP) Pulse Ox O2 Delivery O2 Flow Rate FiO2 05/08/25 18:50 106 20 100 05/08/25 18:44 Nasal Cannula* 1 24 05/08/25 16:31 97.9 107/70 (82) 97.9 Total Intake and Output 05/07/25 05/07/25 05/08/25 15:00 23:00 07:00 Intake Total 50 ml 400 ml 350 ml Output Total 250 ml 1700 ml Balance 50 ml 150 ml -1350 ml medications Current Medications Medications Dose Ordered Sig/Mis Route Start Time Stop Time Status Last Admin Dose Admin Ceftriaxone Sodium 50 ml @ 100 mls/hr DAILY@09 IV 05/04/25 09:00 05/08/25 10:41 100 MLS/HR Levalbuterol HCl 1.25 mg Q6HR NEB 05/03/25 06:00 05/08/25 18:44 1.25 MG Ipratropium [place] 0.5 mg Q6HWA NEB 05/03/25 06:00 05/08/25 18:44 0.5 MG Diagnostic Test (Pha) 1 strip ACHS 05/03/25 07:00 05/08/25 11:09 1 STRIP Insulin Human Regular ACHS SC 05/03/25 07:00 05/06/25 17:00 2 UNITS Dextrose 50 ml UD PRN IV 05/03/25 01:45 Polyethylene Glycol 17 gm DAILYPRN PRN PO 05/04/25 12:15 Docusate Sodium 100 mg DAILY PO 05/04/25 12:15 05/08/25 10:42 100 MG Mupirocin 1 applic BID EACHNOSTRI 05/04/25 22:00 05/09/25 21:59 05/08/25 10:00 1 APPLIC Acetaminophen 650 mg Q6HP PRN PO 05/04/25 17:45 05/08/25 00:49 650 MG Pantoprazole Sodium 40 mg DAILY@0600 PO 05/06/25 06:00 Melatonin 5 mg HS PRN PO 05/05/25 22:00 05/08/25 00:49 5 MG Ondansetron HCl 4 mg Q4HPRN PRN IV 05/06/25 15:30 Amiodarone HCl 200 mg Q12HR PO 05/07/25 22:00 05/08/25 10:42 200 MG Metoprolol Tartrate 12.5 mg BID PO 05/07/25 22:00 05/08/25 10:42 12.5 MG Apixaban 2.5 mg BID PO 05/08/25 22:00 Furosemide 20 mg DAILY PO 05/09/25 10:00 laboratory and microbiology Laboratory Tests 05/08/25 04:53 Test 05/08/25 04:53 Range/Units Serum Glucose 88 74-106 mg/dL Assessment/Plan Impression Acute hypoxemic respiratory failure Pleural effusions Pneumonia CHF Patient seen and examined Events Low oxygen requirements On 2 liters nasal cannula No distress Labs and imaging reviewed Management Supplemental oxygen Titrate to maintain sats 90% or above Incentive spirometry Continue antibiotics F/u cultures Bronchodilators Diurese Monitor renal function Monitor electrolytes Supplement as needed F/u cardiology DVT prophylaxis Dietary Evaluation Review Comments: Nutrition Recommendation 1) CCHO 60gm + cardiac 2) Monitor PO intake, lab values, weight trend, and I/O Expected Outcomes/Goals: Lab values to improve Fu 3-5 days Plan discussed with: Patient KARIE BERMEO MD May 08, 2025 19:22
[2025-05-08] MEDS: APIXABAN 2.5 MG TAB PO SCH (21:36)
[2025-05-09] VITALS (20 sets, daily range): BP systolic 104–127; BP diastolic 61–82; PULSE 62–133; RESP 14–18; TEMP 97.3–98.7; O2SAT 95–100
[2025-05-09 05:19] LABS: Hematocrit 41.0 % (36.0-46.0); Hemoglobin 13.0 g/dL (12.2-16.2); Mean Corpuscular Hemoglobin 28.5 pg (28.0-32.0); Mean Corpuscular Volume 89.6 fL (80.0-100.0); Nucleated Red Blood Cells % 0.5 %
[2025-05-09 05:31] LABS: Anion Gap 10 (5-15); Carbon Dioxide 25 mmol/L (20-31); Chloride 105 mmol/L (98-107); Potassium 3.5 mmol/L (3.5-5.1); Sodium 140 mmol/L (136-145)
[2025-05-09 05:32] LABS: Calcium 8.8 mg/dL (8.7-10.4)
[2025-05-09 05:37] LABS: BUN/Creatinine Ratio 16.7 (10.0-20.0); Blood Urea Nitrogen 21 mg/dL (9-23); Glucose 88 mg/dL (74-106)
[2025-05-09] MEDS: FUROSEMIDE 20 MG TAB PO SCH (09:13)
[2025-05-09] MEDS ORDERED: FURO1TAB33 PO (10:43)
[2025-05-09] MEDS ORDERED: AMIO200T33 PO (10:43)
[2025-05-09] MEDS ORDERED: APIX2.5T PO (10:43)
[2025-05-09] MEDS ORDERED: CEPH250C PO (10:43)
[2025-05-09] MEDS ORDERED: METO25TA5 PO (10:43)
--- NOTE | 2025-05-09 16:43 | DVHPN2 ---
Progress Note Date Seen: May 09, 2025 Resident Creating Document: GIA JACOB DEANDRE Has the PT tested + for MRSA If YES, has PT been informed?: Yes Medical Necessity Reason Pt with a Central, PICC or Fol: No Subjective Review of Systems Patient seen and examined at the bedside. Patient is feeling better, but still complaining of shortness of breaths. Objective vital signs Vital Sign Date Time Temp Pulse Resp B/P (MAP) Pulse Ox O2 Delivery O2 Flow Rate FiO2 05/09/25 14:02 101 16 100 05/09/25 13:57 Nasal Cannula* 1 24 05/09/25 13:09 98.4 127/80 (96) 98.4 Total Intake and Output 05/08/25 05/08/25 05/09/25 15:00 23:00 07:00 Intake Total 50 ml 600 ml 600 ml Output Total 500 ml 775 ml Balance 50 ml 100 ml -175 ml medications Current Medications Medications Dose Ordered Sig/Mis Route Start Time Stop Time Status Last Admin Dose Admin Ceftriaxone Sodium 50 ml @ 100 mls/hr DAILY@09 IV 05/04/25 09:00 05/09/25 08:17 100 MLS/HR Levalbuterol HCl 1.25 mg Q6HR NEB 05/03/25 06:00 05/09/25 13:56 1.25 MG Ipratropium [place] 0.5 mg Q6HWA NEB 05/03/25 06:00 05/09/25 13:57 0.5 MG Diagnostic Test (Pha) 1 strip ACHS 05/03/25 07:00 05/09/25 11:43 1 STRIP Insulin Human Regular ACHS SC 05/03/25 07:00 05/06/25 17:00 2 UNITS Dextrose 50 ml UD PRN IV 05/03/25 01:45 Polyethylene Glycol 17 gm DAILYPRN PRN PO 05/04/25 12:15 Docusate Sodium 100 mg DAILY PO 05/04/25 12:15 05/09/25 09:14 100 MG Mupirocin 1 applic BID EACHNOSTRI 05/04/25 22:00 05/09/25 21:59 05/09/25 08:48 1 APPLIC Acetaminophen 650 mg Q6HP PRN PO 05/04/25 17:45 05/08/25 21:36 650 MG Pantoprazole Sodium 40 mg DAILY@0600 PO 05/06/25 06:00 05/09/25 06:17 40 MG Melatonin 5 mg HS PRN PO 05/05/25 22:00 05/08/25 21:36 5 MG Ondansetron HCl 4 mg Q4HPRN PRN IV 05/06/25 15:30 Amiodarone HCl 200 mg Q12HR PO 05/07/25 22:00 05/09/25 09:11 200 MG Metoprolol Tartrate 12.5 mg BID PO 05/07/25 22:00 05/09/25 09:11 12.5 MG Apixaban 2.5 mg BID PO 05/08/25 22:00 05/09/25 09:11 2.5 MG Furosemide 20 mg DAILY PO 05/09/25 10:00 05/09/25 09:13 20 MG Examination General Appearance: Alert, Oriented X3, Cooperative, No acute distress HEENT: Atraumatic, PERRLA, EOMI, Mucous membrane moist/pink Respiratory: Bilateral lower zone mild crackles Cardiovascular: Regular rate, Normal S1, Normal S2, No murmurs, no chest wall tenderness Abdominal: Normal bowel sounds, Soft, No tenderness, No hepatospenomegaly, No masses Extremities: Bilateral trace edema Skin: No rashes, No breakdown, No significant lesion Neuro: Normal gait, Normal speech, Strength at 5/5 X4 ext, Normal tone, Sensation intact, Cranial nerves 3-12 NL, Reflexes 2+ Psych/Mental Status: Mental status NL, Mood NL laboratory and microbiology Laboratory Tests 05/09/25 04:57 Test 05/09/25 04:57 Range/Units Serum Glucose 88 74-106 mg/dL Microbiology Date/Time Source Procedure Growth Status 05/03/25 06:23 Voided Urine Urine Culture - Final Escherichia coli Complete 05/03/25 06:23 Blood Blood Culture - Final NO GROWTH AFTER 5 DAYS OF INCUBATION. Complete 05/03/25 05:30 Nose MRSA Screen - Final Methicillin Resistant S.aureus Complete Labs and/or images reviewed: Labs reviewed by me, Image(s) reviewed by me Problem List/Assessment/Plan Problem List/Assessment/Plan This is an 89-year-old lady with past medical history of CHF (EF 20%), paroxysmal AFib (on Eliquis), severe TR, hypertension, and diabetes type 2 came to the hospital due to shortness of breaths. Nephrology consulted due to MATT. 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 No vascularity. Consider characterization with CT abdomen if there is clinical concern for infection or blood products with small echogenic lesion in the midpole of the right kidney. DDX includes AML, hemorrhagic cyst, or nonshadowing nonobstructive calculus. Plan/recommendation: (Dr. Cardoso) * Lasix 20 mg daily oral * We will assess the patient tomorrow, and may resume diuretics * We will follow up with the patient Thank you for giving us the opportunity to take care of your patient. Please call back if you have any questions/concerns. Plan discussed with: Patient, Other (RN) Dietary Evaluation Review Comments: Nutrition Recommendation 1) CCHO 60gm + cardiac 2) Monitor PO intake, lab values, weight trend, and I/O Expected Outcomes/Goals: Lab values to improve Fu 3-5 days GIA JACOB May 09, 2025 16:43
--- NOTE | 2025-05-09 20:00 | DVHDSRES ---
Discharge Summary Date of Admission Resident Creating Document: TANIA IRELAND RESIDENT May 03, 2025 at 00:11 Date of Discharge: May 09, 2025 Labs/Diagnostic Data: Laboratory Results Test 05/09/25 06:21 05/09/25 04:57 05/07/25 04:51 05/06/25 10:37 POC Glucose 81 mg/dl (70-106) White Blood Count 7.9 10^3/uL (4.4-10.8) Red Blood Count 4.57 10^6/uL (4.0-5.20) Hemoglobin 13.0 g/dL (12.2-16.2) Hematocrit 41.0 % (36.0-46.0) Mean Corpuscular Volume 89.6 fL (80.0-100.0) Mean Corpuscular Hemoglobin 28.5 pg (28.0-32.0) Mean Corpuscular Hemoglobin Concent 31.8 g/dL (32.0-36.0) Red Cell Distribution Width 17.2 % (11.8-14.3) Platelet Count 161 10^3/uL (140-450) Mean Platelet Volume 8.1 fL (6.9-10.8) Neutrophils (%) (Auto) 83.6 % (37.0-80.0) Lymphocytes (%) (Auto) 6.6 % (10.0-50.0) Monocytes (%) (Auto) 8.7 % (0.0-12.0) Eosinophils (%) (Auto) 0.9 % (0.0-7.0) Basophils (%) (Auto) 0.2 % (0.0-2.0) Neutrophils # (Auto) 6.6 10 ^3/uL (1.6-8.6) Lymphocytes # (Auto) 0.5 10 ^3/uL (0.4-5.4) Monocytes # (Auto) 0.7 10 ^3/uL (0-1.3) Eosinophils # (Auto) 0.1 10 ^3/uL (0-0.8) Basophils # (Auto) 0 10 ^3/uL (0-0.2) Nucleated Red Blood Cells 0.5 % Sodium Level 140 mmol/L (136-145) Potassium Level 3.5 mmol/L (3.5-5.1) Chloride Level 105 mmol/L (98-107) Carbon Dioxide Level 25 mmol/L (20-31) Anion Gap 10 (5-15) Blood Urea Nitrogen 21 mg/dL (9-23) Creatinine 1.26 mg/dL (0.550-1.02) Glomerular Filtration Rate Calc 41 mL/min (>90) BUN/Creatinine Ratio 16.7 (10.0-20.0) Serum Glucose 88 mg/dL (74-106) Calcium Level 8.8 mg/dL (8.7-10.4) Phosphorus Level 4.8 mg/dL (2.4-5.1) Total Bilirubin 0.6 mg/dL (0.2-1.0) Aspartate Amino Transferase (AST) 80 U/L (13-40) Alanine Aminotransferase (ALT) 69 U/L (7-40) Alkaline Phosphatase 77 U/L (46-116) Total Protein 5.9 g/dL (5.7-8.2) Albumin 3.7 g/dL (3.2-4.8) Parathyroid Hormone (Intact) 360.0 pg/mL (18.4-80.1) Magnesium Level 2.2 mg/dL (1.6-2.6) Random Vancomycin Level 12.6 ug/mL (5-10) Test 05/03/25 08:15 05/03/25 02:56 05/03/25 01:58 05/02/25 21:15 Lactic Acid Level 1.7 mmol/L (0.4-2.0) Influenza Type A Antigen Negative (Negative) Influenza Type B Antigen Negative (Negative) SARS-CoV-2 Antigen (Rapid) Negative (NEGATIVE) Blood Gas Specimen Type Venous Blood Gas Sample Site Vbg - n/a Blood Gas Patient Temperature 37.0 Arterial Blood Date Drawn [id number] Daniel Test N/a Venous Blood pH 7.315 (7.320-7.430) Venous Blood pCO2 at Patient Temp 40.8 mmHg (38.0-54.0) Venous Blood pO2 at Patient Temp 39.5 mmHg (23.0-48.0) Venous Blood HCO3 20.3 mmol/L (22.0-29.0) Venous Blood Base Excess -5.5 mmol/L (-2.0-3.0) Blood Gas Liter Flow 2.00 Blood Gas Modality Vbg - n/a FiO2 % 28.0 Prothrombin Time 14.9 sec (9.3-11.8) Prothrombin Time INR 1.46 (0.9-1.15) Activated Partial Thromboplast Time 27.0 SEC (24.5-34.5) Test 05/02/25 19:58 05/02/25 16:28 05/02/25 06:23 Troponin I High Sensitivity 24 ng/L (</=34) Vitamin B12 Level 787 pg/mL (211-911) Vitamin D 25-Hydroxy 48.5 ng/mL (30.0-100) Hemoglobin A1c 5.9 % A1C (<5.7) Direct Bilirubin 0.8 mg/dL (<0.3) C-Reactive Protein High Sensitivity 2.40 mg/dL (<1.0) B-Type Natriuretic Peptide 966.80 pg/mL (0-100) Triglycerides Level 98 mg/dL (< 150) Cholesterol Level 157 mg/dL (< 200) LDL Cholesterol 89 mg/dL (< 100) HDL Cholesterol 50 mg/dL (40-59) Lipase 23 U/L (12-53) Thyroid Stimulating Hormone (TSH) 2.72 uIU/mL (0.55-4.78) Urine Color Yellow (Yellow) Urine Clarity Turbid (Clear) Urine pH 5.0 (5.0-9.0) Urine Specific [place] 1.014 (1.001-1.035) Urine Protein Negative (Negative) Urine Ketones Negative (Negative) Urine Blood 1+ /uL (Negative) Urine Nitrite 1+ (Negative) Urine Bilirubin Negative (Negative) Urine Urobilinogen Normal mg/dL (Negative) Urine Leukocyte Esterase 3+ /uL (Negative) Urine RBC 5 /hpf (0 - 4) Urine Microscopic WBC 19 /HPF (0-5) Urine Squamous Epithelial Cells Few /hpf (<5) Urine Bacteria Many /hpf (None Seen) Urine Hyaline Casts Mod /lpf (0 - 2) Urine Mucus Few (None Seen) Urine Yeast (Budding) Occasional /hpf (None Urine Glucose Normal mg/dL (Normal) Urine Opiates Screen Neg (NEGATIVE) Urine Fentanyl Screen Neg (NEGATIVE) Urine Barbiturates Screen Neg (NEGATIVE) Urine Phencyclidine Screen Neg (NEGATIVE) Urine Amphetamines Screen Neg (NEGATIVE) Urine Benzodiazepines Screen Neg (NEGATIVE) Urine Cocaine Screen Neg (NEGATIVE) Urine Cannabinoids Screen Neg (NEGATIVE) Other Laboratory Tests 05/09/25 04:57 Brief Hx & Hospital Course: Michael De Guzman Is an 89 year old female with past medical history of hypertension, hyperlipidemia, type 2 diabetes mellitus,Afib who presented to the ER with the chief complaint of shortness of breath. She reported having difficulty breathing since one day, present while resting, associated with lower back pain and dizziness. Patients heartrate was consistently high due to her atrial fibrillation so she was started on amiodarone bolus and then a continuous drip. Chest xray was done with showed right lower lobe pleural effusion. Echo revealed LVEF 20% with global hypokinesia, diminished RV function, severe TR, moderate MR and left atrial enlargement. Patient was started on lasix which was later discontinued due to increasing creatinine. Urine culture revealed Ecoli sensitive to ceftriaxone. 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 On 05/06/25,her blood pressure dropped to 85/46 for which she was given one dose of albumin 25 grams which helped bring the blood pressure back to normal. Repeat chest X rays showed bilateral pulmonary effusion and pulmonary edema. Patient was put on strict I&os,daily weight, maintaining fluid restriction and low sodium diet. Cardiolite stress test was completed and was negative for ischemia. Patient was ckinically stable today, and was discharged to SNF with keflx 500mg po bid and resumption of home medications. All medications and recommendations were thoroughly explained to the patient and she demonstrated understanding of the same. Previous hospitalization: In 2022 for influenza PMHx: Hypertension, hyperlipidemia, type 2 diabetes mellitus PSHx: Hip replacement surgery and 2 sections Social history: Quit smoking in 2008, 40 pack per year smoking history. Denies alcohol, recreational drug use. Full code, next to kin his grandson. Home medication: Eliquis, unsure of other home medication Allergic history: penicillins General: Patient is awake and alert HEENT: Normocephalic, atraumatic, moist mucous membranes, Respiratory/pulmonary: right sided lung crackles+, mildly diminished breath sound bilaterally Cardiovascular: Tachycardia. Normal heart sounds S1 and S2 with no associated murmurs Abdomen: Cyst on the anterior abdominal wall Abdomen nondistended, there is no pain to palpation in any of the abdominal quadrants, no palpable masses. Extremities: No pitting edema noted on examination, peripheral Pulses 3+ Radial (R). 3+ Radial (L). 3+ Dorsalis pedis (R). 3+ Dorsalis pedis(L) Skin: No rashes or pruritus, there is no sacral edema present at this time. Neurological: Intact cranial nerves with no focal neurologic deficits Operations or Procedures 1.PROCEDURE(s): CXRP - CHEST PORTABLE REASON: sob ORDER NUMBER(s): [id number], ACCESSION NUMBER(s): [id number] IMPRESSION: Right lower lobe pleural effusion. 2.PROCEDURE(s): LIVUS - LIVER REASON: Rule out cholecystitis ORDER NUMBER(s): [id number], ACCESSION NUMBER(s): [id number] ADDENDUM ADDENDUM # 1 At least a small to moderate sized right-sided pleural effusion is seen, incompletely imaged. IMPRESSION: No gallstones or evidence for acute cholecystitis. Gallbladder wall is thickened, a nonspecific finding that can be related to the patient's overall fluid status or an adjacent inflammatory process such as hepatitis or pancreatitis. 3.PROCEDURE(s): CARCL - CAROTID DUPLX W COLOR DOP REASON: Presyncope ORDER NUMBER(s): [id number], ACCESSION NUMBER(s): [id number] FINDINGS: Calcific plaquing is seen in bilateral carotid bulbs left greater than right. There is no focal elevated velocity or color aliasing to suggest significant carotid artery stenosis. There is normal antegrade flow in both vertebral arteries. IMPRESSION: 1. Calcific plaquing in bilateral carotid bulbs left greater than right with less than 50% stenosis. 4.PROCEDURE(s): CHSTU - CHEST ULTRASOUND REASON: Evaluate right pleural fluid ORDER NUMBER(s): [id number], ACCESSION NUMBER(s): [id number] Finding/Impression: There is a moderate right and small left pleural effusion. 5.PROCEDURE(s): CXR1 - CHEST XRAY 1 VIEW REASON: central line placement ORDER NUMBER(s): [id number], ACCESSION NUMBER(s): [id number] IMPRESSION: 1. New right internal jugular central venous catheter tip projects over the distal inferior vena cava. Recommend retraction as indicated. 2. Right pleural effusion and basilar pulmonary airspace disease. 3. Cardiomegaly and diffuse increased prominence of the pulmonary vasculature. 6.PROCEDURE(s): CX2CT - CHEST WITHOUT CONTRAST REASON: Pnuemonia ORDER NUMBER(s): [id number], ACCESSION NUMBER(s): [id number] IMPRESSION: 1. Mild cardiomegaly, moderate right and small left pleural effusions and chest wall edema. Findings could be due to CHF and/or volume overload. 2. Moderate dependent bilateral lower lobe consolidations which could reflect passive atelectasis or pneumonia , which could be on the basis of aspiration. 3. Mild 3-vessel calcified coronary artery disease. 4. Tiny nonobstructing left upper pole renal calculus. 5. Cystic lesion within the midline anterior abdominal wall, partially outside of the skin surface. Correlate with clinical exam. 6. Mild emphysema. 7.PROCEDURE(s): CXR1 - CHEST XRAY 1 VIEW REASON: interval changes ORDER NUMBER(s): [id number], ACCESSION NUMBER(s): [id number] IMPRESSION: Cardiomegaly with small bilateral pleural effusions and pulmonary edema. 8.PROCEDURE(s): CXR1 - CHEST XRAY 1 VIEW REASON: interval changes ORDER NUMBER(s): [id number], ACCESSION NUMBER(s): [id number] IMPRESSION: Cardiomegaly with small bilateral pleural effusions and pulmonary edema. 9.PROCEDURE(s): CHSTU - CHEST ULTRASOUND REASON: FLUID CHECK FOR POSSIBLE THORACENTESIS ORDER NUMBER(s): [id number], ACCESSION NUMBER(s): [id number]. Finding/Impression: Moderate bilateral pleural effusions. 10.PROCEDURE(s): KIDUS - KIDNEY REASON: CKD ORDER NUMBER(s): [id number], ACCESSION NUMBER(s): [id number] IMPRESSION: 1. Slightly small kidneys without hydronephrosis. 2. Heterogeneous mixed echogenicity curvilinear collection adjacent to the mid to lower pole of the right kidney. No vascularity. Consider characterization with CT abdomen if there is clinical concern for infection or blood products. 3. Small echogenic lesion in the midpole of the right kidney. DDX includes AML, hemorrhagic cyst, or nonshadowing nonobstructive calculus. 4. Ascites in the visualized abdomen. Condition at Discharge: Fair Final Diagnosis/Problems List Sepsis due to pneumonia,likely gram negative Acute hypoxic respiratory failure Right moderate pleural effusion Adria on CKD Atelectasis,compressive due to pleual effusion Lactic acidosis Acute exacerbation of CHF, EF 20% Acute UTI Paroxysmal Afib with RVR Transamnitis Diabetes mellitus type 2,controlled history of nicotine dependence Discharge Disposition: Nursing Home Facility Discharge Instruct/Medications Diet: Consistent carbohydrate, Cardiac 2g Na,low cholest Activity: No Restrictions, As Tolerated Follow Up/Referral: follow up with PCP in 2weeks Medications: amiodarone 200mg po bid lasix 20mg po bid eliquis 2.5 mg po bid metoprolol 12.5 mg bid keflex 500mg po bid Scheduled Acetaminophen (Acetaminophen), 325 MG PO PRN, (Reported) Amiodarone Hcl (Amiodarone Hcl), 200 MG PO BID Apixaban Base (Eliquis), 2.5 MG PO BID Cephalexin (Keflex Capsule), 250 MG PO Q6HR Furosemide (Lasix), 1 TAB PO DAILY Metoprolol Tartrate (Metoprolol Tartrate), 0.5 TAB PO BID Discharge Statement: "Patient was advised to return to the ER or call 911 if any headaches, dizziness, shortness of breath, chest pain, abdominal pain, bleeding, fevers, or worsening of medical condition. Patient was counseled about treatment plan, medications, possible side effects, patientverbalized understanding. All questions were answered to the best of my ability. This discharge took greater then 30 minutes in planning, reviewing documentation, counseling the patient, and discussing with other team members." ASSESSMENT ASSESSMENT Assessment sepsis due to pneumonia,likely gram negative acute hypoxic respiratory failure right moderate pleural effusion atelectasis,compresive due to pleual effusion lactic acidosis acute exacerbation of CHF, EF 20% acute UTI paroxysmal Afib with RVR Date of Service: May 10, 2025 Billing Provider: TRISTEN CUELLAR MD Common Visit Codes: 44714-UIP/OBS DISCH DAY >30min TANIA IRELAND RESIDENT May 09, 2025 20:00
--- NOTE | 2025-05-09 22:30 | DVHPN2 ---
Subjective DOS: 05/09/2025 Patient seen and examined at bedside. Remains on supplemental oxygen Overnight events reviewed. Changes from previous H/P or p: No Changes Objective Vitals Vital Signs Date Time Temp Pulse Resp B/P (MAP) Pulse Ox O2 Delivery O2 Flow Rate FiO2 05/09/25 22:22 133 117/82 05/09/25 21:00 98.4 18 97 98.4 05/09/25 18:12 Nasal Cannula* 1 24 Intake/Output Intake and Output 05/09/25 07:00 Intake Total 1250 ml Output Total 1275 ml Balance -25 ml Intake Oral 1200 ml IV Total 50 ml Output Urine Total 1275 ml Exam Gen.: Patient lying in bed in no apparent distress. On supplemental oxygen. Head: Normocephalic, atraumatic. Eyes: EOMI/PERRLA. Ears: Normal hearing. Normal anatomy. Neck/trachea: Trachea midline, supple. Nose: Normal external anatomy. Mouth: Moist mucous membranes. Chest: Decreased air entry bilaterally. No wheezing or rhonchi. Cardiovascular: Positive S1, positive S2. Regular rate and rhythm. Abdomen: Positive bowel sounds in all 4 quadrants. Soft, non-tender, non- distended. : Deferred. Rectal: Deferred. Skin: Warm, dry. Intact. Extremities: 2+ radial pulses bilaterally. No lower extremity edema. Neuro: Awake, alert, oriented x3. No gross motor or sensory deficits. Cranial nerves II through XII intact. Gait not assessed. Medications Current Medications Medications Dose Ordered Sig/Mis Route Start Time Stop Time Status Last Admin Dose Admin Ceftriaxone Sodium 50 ml @ 100 mls/hr DAILY@09 IV 05/04/25 09:00 05/09/25 08:17 100 MLS/HR Levalbuterol HCl 1.25 mg Q6HR NEB 05/03/25 06:00 05/09/25 18:12 1.25 MG Ipratropium [place] 0.5 mg Q6HWA NEB 05/03/25 06:00 05/09/25 18:12 0.5 MG Diagnostic Test (Pha) 1 strip ACHS 05/03/25 07:00 05/09/25 22:23 1 STRIP Insulin Human Regular ACHS SC 05/03/25 07:00 05/09/25 16:57 2 UNITS Dextrose 50 ml UD PRN IV 05/03/25 01:45 Polyethylene Glycol 17 gm DAILYPRN PRN PO 05/04/25 12:15 Docusate Sodium 100 mg DAILY PO 05/04/25 12:15 05/09/25 09:14 100 MG Acetaminophen 650 mg Q6HP PRN PO 05/04/25 17:45 05/09/25 20:56 650 MG Pantoprazole Sodium 40 mg DAILY@0600 PO 05/06/25 06:00 05/09/25 06:17 40 MG Melatonin 5 mg HS PRN PO 05/05/25 22:00 05/09/25 20:56 5 MG Ondansetron HCl 4 mg Q4HPRN PRN IV 05/06/25 15:30 Amiodarone HCl 200 mg Q12HR PO 05/07/25 22:00 05/09/25 22:22 200 MG Metoprolol Tartrate 12.5 mg BID PO 05/07/25 22:00 05/09/25 22:22 12.5 MG Apixaban 2.5 mg BID PO 05/08/25 22:00 05/09/25 22:22 2.5 MG Furosemide 20 mg DAILY PO 05/09/25 10:00 05/09/25 09:13 20 MG Laboratory Results Laboratory Tests 05/09/25 04:57 Chemistry Test 05/09/25 04:57 Calcium Level 8.8 mg/dL (8.7-10.4) Urinalysis Test 05/02/25 06:23 Urine Color Yellow (Yellow) Urine Clarity Turbid (Clear) H Urine pH 5.0 (5.0-9.0) Urine Specific [place] 1.014 (1.001-1.035) Urine Protein Negative (Negative) Urine Ketones Negative (Negative) Urine Blood 1+ /uL (Negative) H Urine Nitrite 1+ (Negative) H Urine Bilirubin Negative (Negative) Urine Urobilinogen Normal mg/dL (Negative) Urine Leukocyte Esterase 3+ /uL (Negative) Urine RBC 5 /hpf (0 - 4) Urine Microscopic WBC 19 /HPF (0-5) H Urine Squamous Epithelial Cells Few /hpf (<5) Urine Bacteria Many /hpf (None Seen) H Urine Hyaline Casts Mod /lpf (0 - 2) Urine Mucus Few (None Seen) Urine Yeast (Budding) Occasional /hpf (None Urine Glucose Normal mg/dL (Normal) Microbiology Microbiology Date/Time Source Procedure Growth Status 05/03/25 06:23 Voided Urine Urine Culture - Final Escherichia coli Complete 05/03/25 06:23 Blood Blood Culture - Final NO GROWTH AFTER 5 DAYS OF INCUBATION. Complete 05/03/25 05:30 Nose MRSA Screen - Final Methicillin Resistant S.aureus Complete Assessment/Plan Assessment/Plan Impression: Acute hypoxic respiratory failure due to pneumonia Sepsis due to pneumonia Pneumonia, likely gram negative rods Pleural effusions Atelectasis, compressive due to pleural effusion Acute on chronic combined CHF Hx of nicotine dependence Events: Remains on supplemental oxygen, 2 LPM NC Taper O2 as tolerated Continue bronchodilators Continue antibiotics Incentive spirometry Continue Amiodarone PO Eliquis BID Continue diuresis with Lasix as tolerated Monitor renal function. Monitor electrolytes. Supplement as necessary. Labs and imaging reviewed. Rest of plan as noted below. Plan: Supplemental oxygen Titrate to keep O2 sats above 92%. Continue bronchodilators. Continue antibiotics IV steroids Incentive spirometry due to atelectasis Amiodarone for atrial fibrillation Eliquis BID Transthoracic echocardiogram from 05/04/25 revealed an EF of 20% with global hypokinesis. RVSP of 41 mmHg. Cardiolite stress test deemed to be non-ischemic. Cardiology recommendations appreciated. Accu-Cheks, ISS. Diurese with Lasix as tolerated Monitor renal function. Monitor electrolytes. Supplement as necessary. Monitor ins and outs. GI prophylaxis DVT prophylaxis - Lovenox. Prognosis: Poor given patient's multiple co-morbidities. Rest of plan per hospitalist and other consultants. A total of 51 minutes of clinical care time was spent reviewing the patient record, examining the patient, making a diagnostic and therapeutic plan, discussing this plan with the medical personnel, following up on diagnostic studies and following the patient for clinical stability excluding any and all procedures. At least 50% of this time was spent in direct, [id number] contact. Thank you, Dr. Merino, for allowing me to participate in this patient's care. Further recommendations will depend on the patient's clinical course. Please do not hesitate to contact me if you have any questions or concerns. This medical document was created using an electronic medical record system with [employer] system. Although these documentations are being carefully reviewed, there may still be some phonetic and typographical changes. The errors are purely typographical, due to imperfection on the software program, and do not reflect any compromise in the patient's medical care. Plan discussed with: Patient, Other (RN Cindy) Visit Coding Pulmonary Billing Provider: MELANIE VILLARREAL MD Date of Service if different f: May 09, 2025 Common Visit Codes: 49170-CHIDNYHFKP INP/OBS CARE(HIGH) MELANIE VILLARREAL MD May 09, 2025 22:30
[2025-05-10] VITALS (12 sets, daily range): BP systolic 105–149; BP diastolic 68–92; PULSE 56–129; RESP 14–95; TEMP 97.5–99; O2SAT 88–100
--- NOTE | 2025-05-10 15:21 | DVHPNRES ---
Progress Note Date Seen: May 10, 2025 Resident Creating Document: TANIA IRELAND RESIDENT Has the PT tested + for MRSA If YES, has PT been informed?: Yes Medical Necessity Reason Pt with a Central, PICC or Fol: No Subjective Review of Systems Gege Rodriguez is an 89 year old female with past medical history of hypertension, hyperlipidemia, type 2 diabetes mellitus, who presented to the ER with chief complaint of shortness of breath. She reported having difficulty breathing since 1 day, present while resting, associated with back pain and dizziness. Patient describes pain in lower back as vague, 9/10, nonradiating. Since 1 day, she has been feeling lightheaded, with difficulty in standing up, causing her to lose balance. These symptoms urged her visit to the urgent care, where she started complaining of nausea and lethargy and was brought to the ER by paramedics. She denies fever, chills, sick contacts or recent travel. She does not use any home oxygen, currently saturating on 3 L oxygen. Previous hospitalization: In 2022 for influenza PMHx: Hypertension, hyperlipidemia, type 2 diabetes mellitus PSHx: Hip replacement surgery and 2 sections Social history: Quit smoking in 2008, 40 pack per year smoking history. Denies alcohol, recreational drug use. Full code, next to kin his grandson. Home medication: Bailey, unsure of other home medication Allergic history: penicillins Patient seen and examined at bedside. Patient is alert and oriented to time, place person and responding to all questions. Patient complains of generalised weakness. Eyes: No Pain, No Vision change, No Conjunctivae inflammation, No Eyelid inflammation, No Redness ENT: No Ear pain, No Ear discharge, No Nose pain, No Nose discharge, No Nose congestion, No Mouth pain, No Mouth swelling, No Throat pain, No Throat swelling Cardiovascular: No Chest Pain, No Palpitations, No Orthopnea, No Paroxysmal No Dyspnea, No Edema, No Lt Headedness Respiratory: No Cough, No Dry, No Shortness of breath, No SOB with exertion, No Wheezing, No Hemoptysis, No Pleuritic Pain, No Sputum Gastrointestinal: No Nausea, No Vomiting, No Abdominal Pain, No Diarrhea, No Constipation, No Melena, No Hematochezia Genitourinary: No Dysuria, No Frequency, No Incontinence, No Hematuria, No Retention ROS: 05/03/25 Patient was examined at bedside today. patient was drowsy in the morning but was fully oriented ANO x4 in the afternoon. Patient stated that she has been taking Eliquis daily and patient's heart rate has been consistently high due to her atrial fibrillation so we started her on amiodarone bolus and then continuous drip. I spoke to the patient's great grandson who is her caregiver and he states that the patient might have dementia that she has been mixing things up and recalling old memories more often these days. As per the grandson patient has been weak and fatigued for whole week and her face and feet have swollen up. He also reports that patient has been having shortness of breath and after the appointment at PCP yesterday at 2:30 a.m., patient reported she felt dizzy and was unable to walk due to shortness of breath which is why the paramedics brought her to the emergency department. I discussed the patient's condition in detail with the great grandson and he communicated understanding. 05/04/2025: Patient was seen and examined by me at the bedside today. Patient is A&O x4 today morning. She reports feeling better and that her shortness of breath has decreased. She does report of feeling tired. Patient complains that she strains likely to pass stool and has not been able to. MiraLax 17 g and docusate 100 mg has been added today. Pulmonology consult was done yesterday who suggested continuation of antibiotics and steroids. Grandson was informed regarding pulmonary doctor's decision. We will continue current management for now. Code status was discussed yesterday with patient's great grandson and patient and they set patient is full code. MRSA positive, mupirocin for nurse added today. Isolation precautions also added today. 05/05/2025-patient was seen today at bedside, patient reported feeling better today. Labs and chart reviewed. Uterine culture revealed E coli, sensitive to ceftriaxone, MRSA nares positive. Echo 2D revealed LVEF 20% with global hypokinesia, diminished RV function, severe TR, moderate MR. Left atrial enlargement. Patient reported constipation, ordered lactulose and also melatonin at night PRN for insomnia. Ordered cardiology consult for further evaluation and care of HFrEF. Ordered Lasix. Spoke to forest worker Dr. BERMEO recommended no thoracentesis at this moment, diuresis. Spoke to patient's daughter at bedside. Ordered IV Lasix 20 mg b.i.d. and carvedilol 3.125 mg p.o. b.i.d. 05/06/25- Patient was seen at bedside today. Lasix was discontinued to to increasing creatinine. Vancomycin and Doxycycline were discontinued. Patient's blood pressure was 85/46 , for which patient was given 1 dose of albumin 25gm, dobutamine and levophed were ordered but kept on standby, as blood pressure stabilised with albumin. Isolation was discontinued. Patient was due for Nuclear stress test today but the procedure was pushed to tomorrow because of pateint's soft blood pressures. New chest Xray was ordered which showed bilateral pulmonary effusions and pulmonary edema.Patient's family was bedside and her clinical status was communicated to them. Unable to initiate guideline directed medical therapy for CHF given soft BP and poor renal function. Continue with strict intake and output, daily weights, maintain fluid restriction, and low sodium diet. 05/07/25- the patient was seen at bedside today. Vitals are stable today. Patient is doing better clinically. Cardiology was consulted and they recommended to Initiate guideline directed medical therapy for CHF, hold ARNI/ACEi/ARB, MRA given poor renal function. Hold SGLT2i given UTI. Start metoprolol tartrate for rate control, switch to succinate per GDMT guidelines if patients BP tolerates dose. Continue with strict intake and output, daily weights, maintain fluid restriction, and low sodium diet. The patient was only able to undergo first half of stress test. Patient will tentatively undergo second half tomorrow (05/08/25). 05/08/25- the patient was seen at bedside today. Her Cardiolite stress test was completed today and was negative for ischemia. Creatinine reduced from 2.15 to 1.66. Nephrology recommended keeping Lasix on hold today as well. PT evaluation was requested. The patient will possibly be discharged tomorrow to SNF for PT. 05/09/25- patient was seen at bedside today. All labs and charts were reviewed. Patient mentions she is doing better. PT evaluation was done and they recommended SNF for rehab. 05/10/25- patient was seen at bedside today. Her central line was discontinued. Isolation precautions were discontinued. Patient is going to be transferred to [facility] this evening. Objective vital signs Vital Sign Date Time Temp Pulse Resp B/P (MAP) Pulse Ox O2 Delivery O2 Flow Rate FiO2 05/10/25 13:00 98.4 129 95 114/92 (99) 94 98.4 05/10/25 12:33 Room Air* 0 21 Total Intake and Output 05/09/25 05/09/25 05/10/25 15:00 23:00 07:00 Intake Total 50 ml 480 ml 240 ml Output Total 1000 ml 375 ml Balance 50 ml -520 ml -135 ml medications Current Medications Medications Dose Ordered Sig/Mis Route Start Time Stop Time Status Last Admin Dose Admin Ceftriaxone Sodium 50 ml @ 100 mls/hr DAILY@09 IV 05/04/25 09:00 05/10/25 08:38 100 MLS/HR Levalbuterol HCl 1.25 mg Q6HR NEB 05/03/25 06:00 05/10/25 12:33 1.25 MG Ipratropium [place] 0.5 mg Q6HWA NEB 05/03/25 06:00 05/10/25 12:33 0.5 MG Diagnostic Test (Pha) 1 strip ACHS 05/03/25 07:00 05/10/25 11:30 1 STRIP Insulin Human Regular ACHS SC 05/03/25 07:00 05/09/25 16:57 2 UNITS Dextrose 50 ml UD PRN IV 05/03/25 01:45 Polyethylene Glycol 17 gm DAILYPRN PRN PO 05/04/25 12:15 Docusate Sodium 100 mg DAILY PO 05/04/25 12:15 05/10/25 09:29 100 MG Acetaminophen 650 mg Q6HP PRN PO 05/04/25 17:45 05/09/25 20:56 650 MG Pantoprazole Sodium 40 mg DAILY@0600 PO 05/06/25 06:00 05/10/25 06:46 40 MG Melatonin 5 mg HS PRN PO 05/05/25 22:00 05/09/25 20:56 5 MG Ondansetron HCl 4 mg Q4HPRN PRN IV 05/06/25 15:30 Amiodarone HCl 200 mg Q12HR PO 05/07/25 22:00 05/10/25 09:29 200 MG Metoprolol Tartrate 12.5 mg BID PO 05/07/25 22:00 10/24/25 09:30 12.5 MG Apixaban 2.5 mg BID PO 05/08/25 22:00 05/10/25 09:30 2.5 MG Furosemide 20 mg DAILY PO 05/09/25 10:00 05/10/25 09:30 20 MG Examination General: Patient is awake and alert HEENT: Normocephalic, atraumatic, moist mucous membranes, Respiratory/pulmonary: mildly diminished breath sound bilaterally Cardiovascular: Tachycardia. Normal heart sounds S1 and S2 with no associated murmurs,Bp was 85/46 Abdomen: Cyst on the anterior abdominal wall Abdomen nondistended, there is no pain to palpation in any of the abdominal quadrants, no palpable masses. Extremities: No pitting edema noted on examination, peripheral Pulses 3+ Radial (R). 3+ Radial (L). 3+ Dorsalis pedis (R). 3+ Dorsalis pedis(L) Skin: No rashes or pruritus, there is no sacral edema present at this time. Neurological: Intact cranial nerves with no focal neurologic deficits laboratory and microbiology Laboratory Tests 05/09/25 04:57 Test 05/09/25 04:57 Range/Units Serum Glucose 88 74-106 mg/dL Microbiology Date/Time Source Procedure Growth Status 05/03/25 06:23 Voided Urine Urine Culture - Final Escherichia coli Complete 05/03/25 06:23 Blood Blood Culture - Final NO GROWTH AFTER 5 DAYS OF INCUBATION. Complete 05/03/25 05:30 Nose MRSA Screen - Final Methicillin Resistant S.aureus Complete Labs and/or images reviewed: Labs reviewed by me, Image(s) reviewed by me Problem List/Assessment/Plan Problem List/Assessment/Plan #Sepsis due to Pneumonia, likely gram negative rods vs. gram positive cocci #Acute hypoxic respiratory failure due to pneumonia #Right moderate pleural effusion #Atelectasis, compressive due to pleural effusion #Lactic acidosis -CXR revealed right lower lobe consolidation/ pleural effusion -Tachycardia, tachypnea, lactic acidosis -blood culture no growth so far -on IV ceftriaxone 1 g daily -Restricted fluid resuscitation in context of exacerbation of heart failure -oxygen tapering, plan is to take off oxygen if tolerating well and breathing well in room air maintain oxygen saturation more than 90% -Nebulization therapy with albuterol and ipratropium -nuclear test showed no ischemic changes #Acute exacerbation of HFrEF, LVEF 20%, global hypokinesia # severe TR, moderate MR. Left atrial enlargement. -previous Echocardiogram from 02/2024 shows LVEF 45%, grade 1 diastolic dysfunction. Repeat echocardiogram showed EF 20% with severe TR and moderate MR -CXR revealed right lower lobe consolidation/ pleural effusion -lasix kept on hold -carvedilol 3.125 mg p.o. b.i.d. -Strict I&O #UTI -urine analysis showed urine clarity turbid, blood +1, nitrites +1, leukocyte esterase 3+, RBC 5, WBC 19, bacteria many, squamous epithelial cells few, mucus few, hyaline casts moderate, urine yeast budding occasional -urine culture E coli >100,000 CFUs -IV ceftriaxone 1 g daily #Presyncope, rule out cardiac etiology -Echocardiogram-LVEF 20%, global hypokinesia -Monitor on telemetry for life-threatening arrhythmias #Paroxysmal atrial fibrillation with RVR -On apixaban at home -continue amiodarone as prescribed -continue Lovenox as prescribed #Diabetes mellitus type 2,A1c 5.9 -Sliding scale insulin -Monitor blood glucose -Diabetes education -Diabetic diet #Transaminitis -Liver ultrasound shows gallbladder wall thickening, no gallstones visualized #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 hyperparathyroidism -Avoiding nephrotoxins like NSAIDS, contrast #Hx of nicotine dependence Diet: Cardiac DVT prophylaxis: Lovenox GI prophylaxis Protonix Code status:Full code Goals of care discussed with patient and family for >20 minutes Plan discussed with Dr Kay Plan discussed with: Patient, Other My Orders My Orders Orders - TANIA IRELAND RESIDENT Procedure Category Date Status Time Mrsa Screen MARIE 05/10/25 In Process 13:06 Discontinue Tele JORDAN 05/10/25 In Process 14:54 Dietary Evaluation Review Comments: Nutrition Recommendation 1) CCHO 60gm + cardiac 2) Monitor PO intake, lab values, weight trend, and I/O Expected Outcomes/Goals: Lab values to improve Fu 3-5 days Date of Service: May 10, 2025 Billing Provider: GLENYS KAY MD Common Visit Codes: [id number] INP/OBS CARE(HIGH) Date of Service: May 10, 2025 Billing Provider: GLENYS KAY MD Common Visit Codes: [id number] INP/OBS CARE(HIGH) TANIA IRELAND RESIDENT May 10, 2025 15:21 GLENYS KAY MD May 11, 2025 10:16
--- NOTE | 2025-05-10 16:29 | DVHPN2 ---
Progress Note Date Seen: May 10, 2025 Resident Creating Document: GIA JACOB DEANDRE Has the PT tested + for MRSA If YES, has PT been informed?: Yes Medical Necessity Reason Pt with a Central, PICC or Fol: No Subjective Review of Systems Patient seen and examined at the bedside. Patient is feeling better, but still complaining of shortness of breaths. Objective vital signs Vital Sign Date Time Temp Pulse Resp B/P (MAP) Pulse Ox O2 Delivery O2 Flow Rate FiO2 05/10/25 13:00 98.4 129 95 114/92 (99) 94 98.4 05/10/25 12:33 Room Air* 0 21 Total Intake and Output 05/09/25 05/09/25 05/10/25 15:00 23:00 07:00 Intake Total 50 ml 480 ml 240 ml Output Total 1000 ml 375 ml Balance 50 ml -520 ml -135 ml medications Current Medications Medications Dose Ordered Sig/Mis Route Start Time Stop Time Status Last Admin Dose Admin Ceftriaxone Sodium 50 ml @ 100 mls/hr DAILY@09 IV 05/04/25 09:00 05/10/25 08:38 100 MLS/HR Levalbuterol HCl 1.25 mg Q6HR NEB 05/03/25 06:00 05/10/25 12:33 1.25 MG Ipratropium [place] 0.5 mg Q6HWA NEB 05/03/25 06:00 05/10/25 12:33 0.5 MG Diagnostic Test (Pha) 1 strip ACHS 05/03/25 07:00 05/10/25 11:30 1 STRIP Insulin Human Regular ACHS SC 05/03/25 07:00 05/09/25 16:57 2 UNITS Dextrose 50 ml UD PRN IV 05/03/25 01:45 Polyethylene Glycol 17 gm DAILYPRN PRN PO 05/04/25 12:15 Docusate Sodium 100 mg DAILY PO 05/04/25 12:15 05/10/25 09:29 100 MG Acetaminophen 650 mg Q6HP PRN PO 05/04/25 17:45 05/09/25 20:56 650 MG Pantoprazole Sodium 40 mg DAILY@0600 PO 05/06/25 06:00 05/10/25 06:46 40 MG Melatonin 5 mg HS PRN PO 05/05/25 22:00 05/09/25 20:56 5 MG Ondansetron HCl 4 mg Q4HPRN PRN IV 05/06/25 15:30 Amiodarone HCl 200 mg Q12HR PO 05/07/25 22:00 05/10/25 09:29 200 MG Metoprolol Tartrate 12.5 mg BID PO 05/07/25 22:00 05/10/25 09:30 12.5 MG Apixaban 2.5 mg BID PO 05/08/25 22:00 05/10/25 09:30 2.5 MG Furosemide 20 mg DAILY PO 05/09/25 10:00 05/10/25 09:30 20 MG Examination General Appearance: Alert, Oriented X3, Cooperative, No acute distress HEENT: Atraumatic, PERRLA, EOMI, Mucous membrane moist/pink Respiratory: Bilateral lower zone mild crackles Cardiovascular: Regular rate, Normal S1, Normal S2, No murmurs, no chest wall tenderness Abdominal: Normal bowel sounds, Soft, No tenderness, No hepatospenomegaly, No masses Extremities: Bilateral trace edema Skin: No rashes, No breakdown, No significant lesion Neuro: Normal gait, Normal speech, Strength at 5/5 X4 ext, Normal tone, Sensation intact, Cranial nerves 3-12 NL, Reflexes 2+ Psych/Mental Status: Mental status NL, Mood NL laboratory and microbiology Laboratory Tests 05/09/25 04:57 Test 05/09/25 04:57 Range/Units Serum Glucose 88 74-106 mg/dL Microbiology Date/Time Source Procedure Growth Status 05/03/25 06:23 Voided Urine Urine Culture - Final Escherichia coli Complete 05/03/25 06:23 Blood Blood Culture - Final NO GROWTH AFTER 5 DAYS OF INCUBATION. Complete 05/03/25 05:30 Nose MRSA Screen - Final Methicillin Resistant S.aureus Complete Labs and/or images reviewed: Labs reviewed by me, Image(s) reviewed by me Problem List/Assessment/Plan Problem List/Assessment/Plan This is an 89-year-old lady with past medical history of CHF (EF 20%), paroxysmal AFib (on Eliquis), severe TR, hypertension, and diabetes type 2 came to the hospital due to shortness of breaths. Nephrology consulted due to MATT. 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 No vascularity. Consider characterization with CT abdomen if there is clinical concern for infection or blood products with small echogenic lesion in the midpole of the right kidney. DDX includes AML, hemorrhagic cyst, or nonshadowing nonobstructive calculus. Plan/recommendation: (Dr. Roy) * Patient is cleared from Nephrology standpoint to be discharged * Discharge plan: Lasix 20 mg b.i.d. oral * Chest x-ray * We will follow up with the patient Thank you for giving us the opportunity to take care of your patient. Please call back if you have any questions/concerns. Plan discussed with: Patient, Other (RN) Dietary Evaluation Review Comments: Nutrition Recommendation 1) CCHO 60gm + cardiac 2) Monitor PO intake, lab values, weight trend, and I/O Expected Outcomes/Goals: Lab values to improve Fu 3-5 days GIA JACOB RESBETTINA May 10, 2025 16:29
--- NOTE | 2025-05-10 19:31 | DVH ---
CHEST RADIOGRAPH Indication: HF Technique: Single frontal view of the chest was obtained Comparison: XY CHEST XRAY 1 VIEW on DOS: 05/06/25, XY CHEST XRAY 1 VIEW on DOS: 05/03/25, XY CHEST PO RTABLE on DOS: 05/02/25 FINDINGS: Lines and Tubes: None Lungs: Bibasilar areas of pleural effusions pulmonary edema. Pleura: Small bilateral pleural effusions No pneumothorax. Cardiomediastinal contours: Cardiomegaly Bones: No acute osseous abnormality. IMPRESSION: 1. Persistent findings of congestive failure without significant improvement.
--- NOTE | 2025-05-10 22:26 | DVHPN2 ---
Subjective DOS: 05/10/2025 Patient seen and examined at bedside. Remains on supplemental oxygen Overnight events reviewed. Changes from previous H/P or p: No Changes Objective Vitals Vital Signs Date Time Temp Pulse Resp B/P (MAP) Pulse Ox O2 Delivery O2 Flow Rate FiO2 05/10/25 18:46 95 Nasal Cannula* 1 24 05/10/25 18:46 75 16 05/10/25 16:45 99.0 105/68 (80) 99.0 Intake/Output Intake and Output 05/10/25 07:00 Intake Total 770 ml Output Total 1375 ml Balance -605 ml Intake Oral 720 ml IV Total 50 ml Output Urine Total 1375 ml Exam Gen.: Patient lying in bed in no apparent distress. On supplemental oxygen. Head: Normocephalic, atraumatic. Eyes: EOMI/PERRLA. Ears: Normal hearing. Normal anatomy. Neck/trachea: Trachea midline, supple. Nose: Normal external anatomy. Mouth: Moist mucous membranes. Chest: Decreased air entry bilaterally. No wheezing or rhonchi. Cardiovascular: Positive S1, positive S2. Regular rate and rhythm. Abdomen: Positive bowel sounds in all 4 quadrants. Soft, non-tender, non- distended. : Deferred. Rectal: Deferred. Skin: Warm, dry. Intact. Extremities: 2+ radial pulses bilaterally. No lower extremity edema. Neuro: Awake, alert, oriented x3. No gross motor or sensory deficits. Cranial nerves II through XII intact. Gait not assessed. Laboratory Results Laboratory Tests 05/09/25 04:57 Urinalysis Test 05/02/25 06:23 Urine Color Yellow (Yellow) Urine Clarity Turbid (Clear) H Urine pH 5.0 (5.0-9.0) Urine Specific [place] 1.014 (1.001-1.035) Urine Protein Negative (Negative) Urine Ketones Negative (Negative) Urine Blood 1+ /uL (Negative) H Urine Nitrite 1+ (Negative) H Urine Bilirubin Negative (Negative) Urine Urobilinogen Normal mg/dL (Negative) Urine Leukocyte Esterase 3+ /uL (Negative) Urine RBC 5 /hpf (0 - 4) Urine Microscopic WBC 19 /HPF (0-5) H Urine Squamous Epithelial Cells Few /hpf (<5) Urine Bacteria Many /hpf (None Seen) H Urine Hyaline Casts Mod /lpf (0 - 2) Urine Mucus Few (None Seen) Urine Yeast (Budding) Occasional /hpf (None Urine Glucose Normal mg/dL (Normal) Microbiology Microbiology Date/Time Source Procedure Growth Status 05/03/25 06:23 Voided Urine Urine Culture - Final Escherichia coli Complete 05/03/25 06:23 Blood Blood Culture - Final NO GROWTH AFTER 5 DAYS OF INCUBATION. Complete 05/03/25 05:30 Nose MRSA Screen - Final Methicillin Resistant S.aureus Complete Assessment/Plan Assessment/Plan Impression: Acute hypoxic respiratory failure due to pneumonia Sepsis due to pneumonia Pneumonia, likely gram negative rods Pleural effusions Atelectasis, compressive due to pleural effusion Acute on chronic combined CHF Hx of nicotine dependence Events: Remains on supplemental oxygen, 2 LPM NC Taper O2 as tolerated Continue bronchodilators Continue antibiotics Incentive spirometry Continue Amiodarone PO Eliquis BID Continue diuresis with Lasix as tolerated Monitor renal function. Monitor electrolytes. Supplement as necessary. Awaiting residential facility - [facility] Labs and imaging reviewed. Rest of plan as noted below. Plan: Supplemental oxygen Titrate to keep O2 sats above 92%. Continue bronchodilators. Continue antibiotics IV steroids Incentive spirometry due to atelectasis Amiodarone for atrial fibrillation Eliquis BID Transthoracic echocardiogram from 05/04/25 revealed an EF of 20% with global hypokinesis. RVSP of 41 mmHg. Cardiolite stress test deemed to be non-ischemic. Cardiology recommendations appreciated. Accu-Cheks, ISS. Diurese with Lasix as tolerated Monitor renal function. Monitor electrolytes. Supplement as necessary. Monitor ins and outs. GI prophylaxis DVT prophylaxis - Lovenox. Prognosis: Poor given patient's multiple co-morbidities. Rest of plan per hospitalist and other consultants. A total of 51 minutes of clinical care time was spent reviewing the patient record, examining the patient, making a diagnostic and therapeutic plan, discussing this plan with the medical personnel, following up on diagnostic studies and following the patient for clinical stability excluding any and all procedures. At least 50% of this time was spent in direct, [id number] contact. Thank you, Dr. Merino, for allowing me to participate in this patient's care. Further recommendations will depend on the patient's clinical course. Please do not hesitate to contact me if you have any questions or concerns. This medical document was created using an electronic medical record system with [employer] system. Although these documentations are being carefully reviewed, there may still be some phonetic and typographical changes. The errors are purely typographical, due to imperfection on the software program, and do not reflect any compromise in the patient's medical care. Plan discussed with: Patient, Other (RN Cindy) Visit Coding Pulmonary Billing Provider: MELANIE VILLARREAL MD Date of Service if different f: May 10, 2025 Common Visit Codes: [id number] INP/OBS CARE(HIGH) MELANIE VILLARREAL MD May 10, 2025 22:26
== END 2025-05-10 20:05 | DRG 871 ==
LOC: EDBD 16:02 → ER 16:02 → OVERFLOW 05-03 00:11 → TELE-EAST 05-03 22:25
PROVIDERS: ADMIT Internal Medicine; ATTEND Internal Medicine
DX: A41.50 Gram-negative sepsis, unspecified (principal); I50.43 Acute on chronic combined systolic (congestive) and diastolic (congestive) heart failure; J15.69 Pneumonia due to other Gram-negative bacteria; J96.01 Acute respiratory failure with hypoxia; E87.20 Acidosis, unspecified; J98.11 Atelectasis; I42.9 Cardiomyopathy, unspecified; I13.0 Hypertensive heart and chronic kidney disease with heart failure and stage 1 through stage 4 chronic kidney disease, or unspecified chronic kidney disease; N17.9 Acute kidney failure, unspecified; N39.0 Urinary tract infection, site not specified; R74.01 Elevation of levels of liver transaminase levels; Z20.822 Contact with and (suspected) exposure to COVID-19; I07.1 Rheumatic tricuspid insufficiency; N18.31 Chronic kidney disease, stage 3a; K21.9 Gastro-esophageal reflux disease without esophagitis; E11.22 Type 2 diabetes mellitus with diabetic chronic kidney disease; E78.5 Hyperlipidemia, unspecified; I48.0 Paroxysmal atrial fibrillation; Z96.649 Presence of unspecified artificial hip joint; J45.909 Unspecified asthma, uncomplicated; Z79.899 Other long term (current) drug therapy; Z83.3 Family history of diabetes mellitus; Z87.891 Personal history of nicotine dependence
CPT/HCPCS: 36415; 36600; 71045; 71250; 76604; 76705; 76775; 78452; 80048; 80053; 80061; 80076; 80202; 80307; 81001; 82306; 82607; 82805; 82962; 83036; 83605; 83690; 83735; 83880; 83970; 84100; 84443; 84484; 85025; 85610; 85730; 86141; 87040; 87081; 87086; 87088; 87186; 87426; 87804; 93005; 93017; 93306; 93886; 94640; 94667; 94668; 96374; 97110; 97116; 97163; 97530; 99291; G0378; J1815; J2470; J2543; P9047

== ENCOUNTER 2025-05-22 15:47 | Inpatient (IN) | payer OTHER ==
[~2025-05-22] VITALS: Ht 157.5 cm; Wt 64.1 kg
[~2025-05-22 15:47] MED LIST: ACET-1881 PO; AMIO200T33 PO; APIX2.5T PO; CEPH250C PO; FURO1TAB33 PO; METO25TA5 PO
--- NOTE | 2025-05-22 16:04 | ED.PDOC ---
History of Present Illness HPI Comments 89F BIBA w/ prior MHx of AFIB, GERD, Asthma, Thyroid, CHF, COPD< HTN, DM, uses O2 at home at 2L:SHx of Right Hip Sx, Tonsillectomy and the c/c of a possible allergic reaction. EMS report on the pt having the generalized hives which was spreading for the past 4 days associated w/ a Tachycardic. EMS were called out to [facility] for the pt, and on scene the pt had a HR of 140, was satting at 91% on 2L Via [place] and an accucheck of 105. Denies any other symptoms at this time. Denies chills, fever, N/V/D, SOB, CP. Denies any other associated symptom's, modifiers, or recent injuries or sick contact at this time. Time Seen by MD: 16:00 Reviewed Notes: Nurses Notes, Group Controller Notes, Medications, Allergies Allergies: Coded Allergies: Penicillins (Verified Allergy, Unknown, 03/30/24) Home Meds Active Scripts Cephalexin (KEFLEX CAPSULE) 250 Mg Cp, 250 MG PO Q6HR for 5 Days, #20 CAP Prov:JOSE BLUMRA RESIDENT 05/09/25 Furosemide (Lasix) 20 Mg Tb, 1 TAB PO DAILY for 30 Days, #30 TAB 1 Refill Prov:YOLETTE BLUMHIRA RESIDENT 05/09/25 Apixaban Base (ELIQUIS) 2.5 Mg Tab, 2.5 MG PO BID for 30 Days, #60 TAB 1 [facility] 05/09/25 Amiodarone Hcl (Amiodarone Hcl) 200 Mg Tab, 200 MG PO BID for 30 Days, #60 TAB 1 [facility]/09/25 Metoprolol Tartrate (Metoprolol Tartrate) 25 Mg Tab, 0.5 TAB PO BID for 30 Days, #30 TAB 1 Refill Prov:JOSE BLUMRA RESIDENT 05/09/25 Reported Medications Acetaminophen (Acetaminophen) 325 Mg Tab, 325 MG PO PRN, MG 0 Refills 05/03/25 Information Source: Patient, Emergency Med Personnel Mode of Arrival: EMS Severity: Moderate Timing: Days Duration: Since onset, Days Prehospital treatment: Accucheck (105), Treatment (given fluids) Past Medical History PAST MEDICAL HISTORY: AFIB, Asthma, CHF, COPD, DM, GERD, HTN, Thyroid Past Medical History (Other): uses 2L of O2 at the facility Surgical History: Tonsillectomy Surgical History (Other): Right Hip Sx DIRECTOR REHABILITATION PROGRAM History: No Pertinent DIRECTOR REHABILITATION PROGRAM History Family History Family History: Reviewed,noncontributory to illness, Family hx of HTN Social History Smoker: Non-Smoker Alcohol: Denies ETOH Use Drugs: Denies Drug Use Lives In: Home Constitutional: denies: chills, diaphoresis, fatigue, fever, malaise, sweats, weakness, others EENTM: denies: blurred vision, double vision, ear bleeding, ear discharge, ear drainage, ear pain, ear ringing, eye pain, eye redness, hearing loss, mouth pain, mouth swelling, nasal discharge, nose bleeding, nose congestion, nose pain, photophobia, tearing, throat pain, throat swelling, voice changes, others Respiratory: denies: cough, hemoptysis, orthopnea, SOB at rest, shortness of breath, SOB with excertion, stridor, wheezing, others Cardiovascular: denies: chest pain, dizzy spells, diaphoresis, Dyspnea on exertion, edema, irregular heart beat, left arm pain, lightheadedness, palpitations, PND, syncope, others Gastrointestinal: denies: abdomen distended, abdominal pain, blood streaked bowels, constipated, diarrhea, dysphagia, difficulty swallowing, hematemesis, melena, nausea, poor appetite, poor fluid intake, rectal bleeding, rectal pain, vomiting, others Genitourinary: denies: abnormal vagina bleeding, burning, dyspareunia, dysuria, flank pain, frequency, hematuria, incontinence, pain, , vagina discharge, urgency, others Neurological: denies: dizziness, fainting, headache, left sided numbness, left sided weakness, numbness, paresthesia, pre-existing deficit, right sided numbness, right sided weakness, seizure, speech problems, tingling, tremors, weakness, others Musculoskeletal: denies: back pain, gout, joint pain, joint swelling, muscle pain, muscle stiffness, neck pain, others Integumetry: reports: rash; denies: bruises, change in color, change in hair/nails, dryness, laceration, lesions, lumps, wounds, others Allergic/Immunocompromised: denies: Difficulty Healing, Frequent Infections, Hives, Itching, others Hematologic/Lymphatic: denies: anemia, blood clots, easy bleeding, easy bruising, swollen glands, others Endocrine: denies: excessive hunger, excessive sweating, excessive thirst, excessive urination, flushing, intolerance to cold, intolerance to heat, unexplained weight gain, unexplained weight loss, others Psychiatric: denies: anxiety, bipolar disorder, depression, hopeless, panic disorder, schizophrenia, sleepless, suicidal, others All Other Systems: Reviewed and Negative Physical Exam General Appearance: Moderate Distress HEENT: Normal ENT Inspection, Pharynx Normal, TMs Normal Neck: Full Range of Motion, Non-Tender, Normal, Normal Inspection Respiratory: Chest Non-Tender, Lungs Clear, No Accessory Muscle Use, No Respir atory Distress, Normal Breath Sounds Cardiovascular: No Edema, No JVD, No Murmur, No Gallop, Tachycardia Breast Exam: Deferred Gastrointestinal: No Organomegaly, Non Tender, No Pulsatile Mass, Normal Bowel Sounds, Soft Genitalia: Deferred Pelvic: Deferred Rectal: Deferred Extremities: No calf tenderness, Normal capillary refill, Normal inspection, Normal range of motion, Non-tender, No pedal edema Musculoskeletal : Apperance: Normal Neurologic: Alert, steam presser II-XII nml as Tested, Motor Weakness, Normal Affect, Normal Mood, No Sensory Deficits Cerebellar Function: Normal Reflexes: Normal Skin: Dry, Normal Color, Rash Lymphatic: No Adenopathy Was a procedure done? Was a procedure done?: No Differential Dx Considerations may include: Generalized weakness, electrolyte imbalance, allergic reaction X-Ray, Labs, Meds, VS Vital Signs Date Time Temp Pulse Resp B/P (MAP) Pulse Ox O2 Delivery O2 Flow Rate FiO2 05/22/25 16:00 99.0 140 30 116/83 91 99.0 Lab Test 05/22/25 16:36 05/22/25 16:10 Range/Units White Blood Count 5.5 4.4-10.8 10^3/uL Red Blood Count 5.23 H 4.0-5.20 10^6/uL Hemoglobin 14.9 12.2-16.2 g/dL Hematocrit 47.2 H 36.0-46.0 % Mean Corpuscular Volume 90.4 80.0-100.0 fL Mean Corpuscular Hemoglobin 28.5 28.0-32.0 pg Mean Corpuscular Hemoglobin Concent 31.5 L 32.0-36.0 g/dL Red Cell Distribution Width 17.0 H 11.8-14.3 % Platelet Count 285 140-450 10^3/uL Mean Platelet Volume 7.8 6.9-10.8 fL Neutrophils (%) (Auto) 53.7 37.0-80.0 % Lymphocytes (%) (Auto) 33.1 10.0-50.0 % Monocytes (%) (Auto) 7.2 0.0-12.0 % Eosinophils (%) (Auto) 5.7 0.0-7.0 % Basophils (%) (Auto) 0.3 0.0-2.0 % Neutrophils # (Auto) 3.0 1.6-8.6 10 ^3/uL Lymphocytes # (Auto) 1.8 0.4-5.4 10 ^3/uL Monocytes # (Auto) 0.4 0-1.3 10 ^3/uL Eosinophils # (Auto) 0.3 0-0.8 10 ^3/uL Basophils # (Auto) 0 0-0.2 10 ^3/uL Nucleated Red Blood Cells 0.1 % Sodium Level 132 L 136-145 mmol/L Potassium Level 4.7 3.5-5.1 mmol/L Chloride Level 100 98-107 mmol/L Carbon Dioxide Level 23 20-31 mmol/L Anion Gap 9 5-15 Blood Urea Nitrogen 9 9-23 mg/dL Creatinine 1.34 H 0.550-1.02 mg/dL Glomerular Filtration Rate Calc 38 >90 mL/min BUN/Creatinine Ratio 6.7 L 10.0-20.0 Serum Glucose 94 74-106 mg/dL Calcium Level 9.1 8.7-10.4 mg/dL Current Medications Medications (Trade) Dose Ordered Sig/Mis Route Start Time Stop Time Status Last Admin Sodium Chloride 500 ml @ 500 mls/hr Q1H ONCE IV 05/22/25 16:00 05/22/25 16:59 DC 05/22/25 16:07 Methylprednisolone Sodium Succinate (Solu Medrol) 125 mg ONCE ONCE IV 05/22/25 16:00 05/22/25 16:01 DC 05/22/25 16:08 IV Hep-Lock was established The patient was given normal saline at a 500 cc bolus. Patient was given Solu-Medrol 125 mg IV push The patient's CBC is within normal limits The chemistry panel is within normal limits At this time, the patient is being admitted to the hospitalist. The patient remains somewhat tachycardic Critical care time was involved with a evaluation patient at bedside Interpretations labs were done The patient remained somewhat tachycardic The patient is being admitted to the telemetry floor Images Reviewed?: Images reviewed and evaluated by me Time of 1ST Reevaluation: 16:30 Reevaluation 1ST: Unchanged Patient Education/Counseling: Diagnosis, Treatment, Prognosis Family Education/Counseling: No Family Present SEPSIS Sepsis Screen Physician Orders Urinalysis (05/22/25 15:51) Heplock Iv (05/22/25 15:51) Clinical Specialist Medical Device (05/22/25 15:51) Blood Pressure (05/22/25 15:51) Pulse Oximetry (05/22/25 15:51) Vital Signs Date Time Temp Pulse Resp B/P (MAP) Pulse Ox O2 Delivery O2 Flow Rate FiO2 05/22/25 16:00 99.0 140 30 116/83 91 99.0 Laboratory Tests Test 05/22/25 16:36 White Blood Count 5.5 10^3/uL (4.4-10.8) Medications Medications Dose Ordered Sig/Mis Route Start Time Stop Time Status Last Admin Dose Admin Methylprednisolone Sodium Succinate 125 mg ONCE ONCE IV 05/22/25 16:00 05/22/25 16:01 DC 05/22/25 16:08 Sodium Chloride 500 ml @ 500 mls/hr Q1H ONCE IV 05/22/25 16:00 05/22/25 16:59 DC 05/22/25 16:07 Departure 1 Departure Time of Disposition: 18:02 Impression: Primary Impression: Acute allergic reaction Qualified Codes: T78.40XA - Allergy, unspecified, initial encounter Additional Impressions: Tachycardia Generalized weakness Disposition: 09 ADMITTED INPATIENT Admit to: Tele Condition: Fair Critical Care Note Critical Care Time?: Yes (35 min-critical care time only) Stability Stability form required: Yes Unstable for transfer: Telemetry monitoring (Telemetry monitoring required), ED Physician Assesment (Clinical assesment) Heart Score Heart Score: Heart Score Response (Comments) Value History N/A 0 EKG N/A 0 Age N/A 0 Risk Factors N/A 0 Troponin N/A 0 Total 0 I personally scribed for LUIS ANTONIO SHANE MD ([email or web address]) on 05/22/25 at 16:04. Electronically submitted by Osito Blake ([email or web address]). LUIS ANTONIO SHANE MD May 22, 2025 16:04
[2025-05-22] MEDS: SODIUM CHLORIDE 0.9% 500 ML IV ONE (16:07)
[2025-05-22] MEDS: methylPREDNISolone SOD SUCC 125 MG/2 ML VL IV ONE (16:08)
[2025-05-22 16:30] LABS: Chloride 100 mmol/L (98-107); Potassium 4.7 mmol/L (3.5-5.1)
[2025-05-22 16:31] LABS: Anion Gap 9 (5-15); Calcium 9.1 mg/dL (8.7-10.4); Carbon Dioxide 23 mmol/L (20-31)
[2025-05-22 16:34] LABS: Sodium 132 mmol/L (136-145)
[2025-05-22 16:36] LABS: BUN/Creatinine Ratio 6.7 (10.0-20.0); Blood Urea Nitrogen 9 mg/dL (9-23); Glucose 94 mg/dL (74-106)
[2025-05-22 16:51] LABS: Nucleated Red Blood Cells % 0.1 %
[2025-05-22 16:54] LABS: Hematocrit 47.2 % (36.0-46.0); Hemoglobin 14.9 g/dL (12.2-16.2); Mean Corpuscular Hemoglobin 28.5 pg (28.0-32.0); Mean Corpuscular Volume 90.4 fL (80.0-100.0)
--- NOTE | 2025-05-22 18:05 | ECG ---
[facility] Test Date: 2025-05-22 Test Time: 17:43:18 Pat Name: GINA JIANG Department: [facility] ED Patient ID: [id number] Room: 0232T Gender: F Equipment Records Supervisor: ANUP : 1935 Requested By: LUIS ANTONIO SHANE Order Number: [id number] Reading MD: Carlo Pruitt Measurements Intervals [place] Rate: 137 P: 0 [place]: 90 QRS: -81 QRSD: 134 T: 47 QT: 344 QTc: 520 Interpretive Statements Sinus tachycardia RBBB and LAFB Electronically Signed On 05-27-2025 10:51:18 PST by Carlo Pruitt Please click the below link to view image of tracing.
[2025-05-22 18:34] VITALS: PULSE 140; RESP 17; O2SAT 98
[2025-05-22] MEDS ORDERED: LABETALOL HCL 20 MG/4 ML VL IV ONE (19:30)
[2025-05-22] MEDS: METOPROLOL TARTRATE 1MG/1ML-5ML VIAL IV SCH (21:17)
[2025-05-22] MEDS: SODIUM CHLORIDE 0.9% 1,000 ML IV ONE (23:21)
--- NOTE | 2025-05-22 23:52 | DVHHPRES ---
History of Present Illness Resident Creating Document: MARCEL HOLLINS RESIDENT History of Present Illness 89 year old female with PMH of AFib (taking Eliquis and amiodarone), CHF( HFrEF 20% last echo 05/04/2025), COPD on 2 L of home oxygen, hypertension, hyperlipidemia, type 2 diabetes mellitus presented to the ER with the chief c omplaint of itching and redness in bilateral limbs and chest for the past 4 days. She lives in [facility] and reports that after 4 days of complaints patient was finally sent to the ED. Patient is A&OX4 but a poor historian, and on inquiry she does not know if she started any new medication,wore any new lotion, took any food that might have led to the allergic reaction. she denies any chest pain, nausea, vomiting, abdominal pain, shortness of breath, palpitations or any other symptoms. On admission heart rate was 140, RR 30. Vitals are now stable with HR 95, RR 13, BP 97/71, SpO2 98 in room air. EKG shows atrial fibrillation with RVR. We are admitting the patient for further workup and management. PMH: As stated above PSHx: Hip replacement surgery and 2 sections Social history: Quit smoking in 2008, 40 pack per year smoking history. Denies alcohol, recreational drug use. Full code, next to kin his grandson. Home medication: Eliquis, unsure of other home medication Allergic history: penicillins Code status: Full code Review of Systems Constitutional: No: Fever, Chills, Sweats, Weakness, Malaise, Other Eyes: No: Pain, Vision change, Conjunctivae inflammation, Eyelid inflammation, Other, Redness ENT: No: Ear pain, Ear discharge, Nose pain, Nose discharge, Nose congestion, Mouth pain, Mouth swelling, Throat pain, Throat swelling, Other Respiratory: No: Cough, Dry, Shortness of breath, SOB with excertion, Wheezing, Hemoptysis, Pleuritic Pain, Sputum, Wheezing, Other Cardiovascular: No: Chest Pain, Palpitations, Orthopnea, Paroxysmal Noc. Dyspnea, Edema, Lt Headedness, Other Gastrointestinal: No: Nausea, Vomiting, Abdominal Pain, Diarrhea, Constipation, Melena, Hematochezia, Other Genitourinary: No Dysuria, No Frequency, No Incontinence, No Hematuria, No Retention, No Other Musculoskeletal: No: other, neck pain, shoulder pain, arm pain, back pain, hand pain, leg pain, foot pain Skin: Rash, Other (Itching); No: Lesions, Jaundice, Bruising Neurological: No: Weakness, Numbness, Incoordination, Change in speech, Confusion, Seizures, Other Allergies: Coded Allergies: Penicillins (Verified Allergy, Unknown, 03/30/24) Exam Vital Signs Vital Signs Date Time Temp Pulse Resp B/P (MAP) Pulse Ox O2 Delivery O2 Flow Rate FiO2 05/22/25 22:01 82 101/72 05/22/25 21:30 17 99 05/22/25 19:30 97.8 97.8 05/22/25 18:34 Nasal Cannula* 2 28 Exam Pt is lying on bed General Appearance: Alert, Oriented X3, Cooperative, Not in acute distress, poor historian HEENT: Atraumatic, Mucous membranes moist/pink Respiratory: Clear to auscultation, Normal air movement, No added sounds Cardiovascular: Regular rate, Normal S1, Normal S2, No murmurs Abdominal: Active bowel sounds, Soft, no distention, no tenderness Extremities: No edema, Normal pulses, No tenderness/swelling Skin: presence of erythema in entire bilateral arms and chest, stage I wound on the buttock on presentation Neuro: Normal speech, sensorimotor deficits none Psych/Mental Status: Mental status NL, Mood NL Labs/Xrays Labs Test 05/22/25 22:36 05/22/25 19:37 05/22/25 16:36 05/22/25 16:10 Range/Units Troponin I High Sensitivity 10 </=34 ng/L D-Dimer, Quantitative 4.29 H 0.0-0.49 mg/L FEU White Blood Count 5.5 4.4-10.8 10^3/uL Red Blood Count 5.23 H 4.0-5.20 10^6/uL Hemoglobin 14.9 12.2-16.2 g/dL Hematocrit 47.2 H 36.0-46.0 % Mean Corpuscular Volume 90.4 80.0-100.0 fL Mean Corpuscular Hemoglobin 28.5 28.0-32.0 pg Mean Corpuscular Hemoglobin Concent 31.5 L 32.0-36.0 g/dL Red Cell Distribution Width 17.0 H 11.8-14.3 % Platelet Count 285 140-450 10^3/uL Mean Platelet Volume 7.8 6.9-10.8 fL Neutrophils (%) (Auto) 53.7 37.0-80.0 % Lymphocytes (%) (Auto) 33.1 10.0-50.0 % Monocytes (%) (Auto) 7.2 0.0-12.0 % Eosinophils (%) (Auto) 5.7 0.0-7.0 % Basophils (%) (Auto) 0.3 0.0-2.0 % Neutrophils # (Auto) 3.0 1.6-8.6 10 ^3/uL Lymphocytes # (Auto) 1.8 0.4-5.4 10 ^3/uL Monocytes # (Auto) 0.4 0-1.3 10 ^3/uL Eosinophils # (Auto) 0.3 0-0.8 10 ^3/uL Basophils # (Auto) 0 0-0.2 10 ^3/uL Nucleated Red Blood Cells 0.1 % Sodium Level 132 L 136-145 mmol/L Potassium Level 4.7 3.5-5.1 mmol/L Chloride Level 100 98-107 mmol/L Carbon Dioxide Level 23 20-31 mmol/L Anion Gap 9 5-15 Blood Urea Nitrogen 9 9-23 mg/dL Creatinine 1.34 H 0.550-1.02 mg/dL Glomerular Filtration Rate Calc 38 >90 mL/min BUN/Creatinine Ratio 6.7 L 10.0-20.0 Serum Glucose 94 74-106 mg/dL Calcium Level 9.1 8.7-10.4 mg/dL SEPSIS Sepsis Screen Date sepsis recognized/suspect: May 22, 2025 Time Sepsis recognized/suspect: 1833 Recent Procedure: No On Antibiotic Therapy: No Respiratory Rate >20: No Heart Rate >90: Yes Temp<36 C (96.8 F) or >38.3 C: No SBP <90 or MAP <65 mmHG: No New Acute Mental Status Change: No Is the patient on CPAP, BIPAP,: No Physician Orders Urinalysis (05/22/25 15:51) Heplock Iv (05/22/25 15:51) Gas Appliance Mechanic (05/22/25 15:51) Blood Pressure (05/22/25 15:51) Pulse Oximetry (05/22/25 15:51) Sodium Chloride 0.9% (05/22/25 23:15) Vital Signs Date Time Temp Pulse Resp B/P (MAP) Pulse Ox O2 Delivery O2 Flow Rate FiO2 05/22/25 22:01 82 101/72 05/22/25 21:30 85 17 94/63 (73) 99 05/22/25 21:25 83 94/63 05/22/25 21:20 90 104/75 05/22/25 21:17 127 100/74 05/22/25 20:15 110 05/22/25 19:30 97.8 140 17 121/90 (100) 94 97.8 05/22/25 18:34 97.8 140 17 108/77 (87) 98 97.8 05/22/25 18:34 140 17 98 Nasal Cannula* 2 28 05/22/25 18:02 137 16 101/74 (83) 94 05/22/25 17:43 137 05/22/25 16:00 99.0 140 30 116/83 91 99.0 Laboratory Tests Test 05/22/25 16:36 White Blood Count 5.5 10^3/uL (4.4-10.8) Medications Medications Dose Ordered Sig/Mis Route Start Time Stop Time Status Last Admin Dose Admin Methylprednisolone Sodium Succinate 125 mg ONCE ONCE IV 05/22/25 16:00 05/22/25 16:01 DC 05/22/25 16:08 125 MG Metoprolol Tartrate 5 mg Q5M IV 05/22/25 21:15 05/22/25 21:26 DC 05/22/25 21:17 5 MG Sodium Chloride 500 ml @ 500 mls/hr Q1H ONCE IV 05/22/25 16:00 05/22/25 16:59 DC 05/22/25 16:07 500 MLS/HR Sodium Chloride 1,000 ml @ 1,000 mls/hr Q1H ONCE IV 05/22/25 23:15 05/23/25 00:14 05/22/25 23:21 1,000 MLS/HR Assessment/Plan Assessment/Plan #Allergic reaction - Benadryl IV 25 mg q.4 PRN #Paroxysmal AFib with RVR - seen on EKG - tele monitor - Lovenox therapeutic dose 1 mg/ kg b.i.d. - continue home medication amiodarone HCL 200 mg b.i.d. - D-dimer elevated 4.29 - bilateral Doppler shows no right or left femoral-popliteal venous thrombosis - TSH 0.99 #Diabetes mellitus, type 2 -Mild sliding scale insulin -A1c last done on 04/27/2025 was 5.9 #COPD, not on exacerbation - ipratropium bromide 0.5 mg q.6 med nebulization - levalbuterol 1.25 mg q.6 nebulization #Chronic CKD - monitor - avoid nephrotoxic agents # CHF, systolic/ diastolic HFrEF 20%, not on exacerbation # Hypertension - last echo done on 05/04/2025 - furosemide 20 held his BP soft - metoprolol on hold as BP is on softer side - BNP 128.99 GI prophylaxis: Protonix 40 mg p.o. daily DVT prophylaxis: Lovenox 40 mg SC daily Diet: cardiac, diabetic and renal diet Goals of care discussed with the patient for more than 27 minutes: Full code status Case discussed with Dr. Jennings, patient and nurse. Plan discussed with: Patient Date of Service: May 23, 2025 Billing Provider: TRISTEN JENNINGS MD Common Visit Codes: [id number] INP/OBS CARE (HIGH) Secondary Visit Codes: [id number] CARE PLAN 30 MINUTES MARCEL HOLLINS RESIDENT May 22, 2025 23:52
[2025-05-23] VITALS (12 sets, daily range): BP systolic 96–111; BP diastolic 63–72; PULSE 72–104; RESP 16–18; TEMP 97.1–98.1; O2SAT 92–100
[2025-05-23] MEDS ORDERED: ONDANSETRON HCL 4 MG/2 ML VIAL IV PRN (00:15)
[2025-05-23] MEDS ORDERED: DEXTROSE (50%) 50ML SYRG IV PRN (00:15)
[2025-05-23 00:57] LABS: Alanine Aminotransferase 15.0 U/L (7-40); Albumin 3.7 g/dL (3.2-4.8); Alkaline Phosphatase 63.0 U/L (46-116); Bilirubin, Total 0.6 mg/dL (0.2-1.0); Magnesium 2.0 mg/dL (1.6-2.6); Total Protein 6.2 g/dL (5.7-8.2)
--- NOTE | 2025-05-23 00:57 | DVH ---
CHEST RADIOGRAPH Indication: sob Technique: Single frontal view of the chest was obtained COMPARISON: XY CHEST XRAY 1 VIEW on DOS: 05/10/25, US CHEST ULTRASOUND on DOS: 05/07/25, XY CHEST XRAY 1 VIEW on DOS: 05/06/25, CT CHEST WITHOUT CONTRAST on DOS: 05/03/25, XY CHEST XRAY 1 VIEW on DOS: 05/03/25 FINDINGS: Lines and Tubes: None Lungs: Near-complete interval resolution of right pleural effusion. Complete interval resolution of left pleural effusion. No evidence of focal consolidation. No pneumothorax. Cardiomediastinal contours: Unremarkable Bones: Unremarkable IMPRESSION: 1. Near-complete interval resolution of right pleural effusion. 2. Complete interval resolution of left pleural effusion. 3. No evidence of focal consolidation.
[2025-05-23] MEDS: AMIODARONE HCL 200 MG TAB PO ONE (01:09)
[2025-05-23] MEDS: PANTOPRAZOLE 40 MG/10 ML VIAL INJ IV ONE (01:09)
[2025-05-23] MEDS: diphenhydrAMINE HCL 50 MG/1 ML VL IV ONE (01:09)
[2025-05-23] MEDS: ENOXAPARIN SOD 100 MG/1 ML SYRINGE SC SCH (01:12)
--- NOTE | 2025-05-23 01:25 | DVH ---
Bilateral lower extremity venous duplex Clinical History: elevated d dimer Comparison: XY CHEST XRAY 1 VIEW on DOS: 05/23/25, XY CHEST XRAY 1 VIEW on DOS: 05/10/25, US CHEST ULTRASOUND on DOS: 05/07/25, XY CHEST XRAY 1 VIEW on DOS: 05/06/25, US ECHO 2D MODE CARDIAC DOP on DOS: 05/04/25 Technique: Duplex Doppler evaluation of the deep venous systems of both lower extremities from the common femoral veins to the popliteal veins including color Doppler and spectral/pulsed waveform analysis was performed. Findings: RIGHT SIDE: The common femoral vein demonstrates appropriate compressibility and waveform variability. There is compressibility/patency of the great saphenous vein at the proximal thigh. The femoral vein demonstrates appropriate compressibility and waveform variability. The deep femoral vein demonstrates appropriate compressibility and waveform variability. The popliteal vein demonstrates appropriate compressibility and waveform variability. There is normal compressibility at the tibioperoneal trunk. LEFT SIDE: The common femoral vein demonstrates appropriate compressibility and waveform variability. There is compressibility/patency of the great saphenous vein at the proximal thigh. The femoral vein demonstrates appropriate compressibility and waveform variability. The deep femoral vein demonstrates appropriate compressibility and waveform variability. The popliteal vein demonstrates appropriate compressibility and waveform variability. There is normal compressibility at the tibioperoneal trunk. Impression: 1. No right or left femoropopliteal venous thrombosis.
[2025-05-23 02:10] LABS: Bilirubin, Direct 0.3 mg/dL (<0.3)
[2025-05-23] MEDS: InsuLIN REG 1unit/0.01ml Soln (100units/ml) SC SCH (06:16)
[2025-05-23] MEDS: LEVALBUTEROL HCL 1.25 MG/3 ML NEB NEB SCH (07:14)
[2025-05-23] MEDS: IPRATROPIUM BROM 0.5 MG/2.5ML INH SOL NEB SCH (07:14)
[2025-05-23 07:59] LABS: COVID19 ANTIGEN SOFIA FIA NEGATIVE (NEGATIVE)
[2025-05-23] MEDS: diphenhydrAMINE HCL 50 MG/1 ML VL IV PRN (08:27)
[2025-05-23] MEDS: PANTOPRAZOLE 40 MG/10 ML VIAL INJ IV SCH (08:28)
[2025-05-23] MEDS: AMIODARONE HCL 200 MG TAB PO SCH (08:28)
[2025-05-23 08:59] LABS: Chloride 104 mmol/L (98-107); Potassium 4.5 mmol/L (3.5-5.1); Sodium 139 mmol/L (136-145)
[2025-05-23 09:00] LABS: Anion Gap 10 (5-15); Carbon Dioxide 25 mmol/L (20-31)
[2025-05-23 09:01] LABS: Calcium 9.2 mg/dL (8.7-10.4)
[2025-05-23 09:05] LABS: BUN/Creatinine Ratio 8.8 (10.0-20.0); Blood Urea Nitrogen 10 mg/dL (9-23)
[2025-05-23 09:06] LABS: Glucose 118 mg/dL (74-106)
[2025-05-23] MEDS ORDERED: METOPROLOL TARTRATE 25 MG TAB PO SCH (10:00)
[2025-05-23] MEDS: ACCU-CHEK COMFORT CURVE STRIP VI SCH (11:15)
--- NOTE | 2025-05-23 18:25 | DVHDSRES ---
Discharge Summary Date of Admission Resident Creating Document: DALY SANCHEZ RESIDENT May 22, 2025 at 23:50 Date of Discharge: May 23, 2025 Admitting Diagnosis #Acute episode of AFib with RVR #Paroxysmal AFib #Acute allergic reaction possible likely medication induced. 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 Labs/Diagnostic Data: Laboratory Results Test 05/23/25 17:17 05/23/25 08:21 05/23/25 06:40 05/22/25 22:36 POC Glucose 135 mg/dl (70-106) Sodium Level 139 mmol/L (136-145) Potassium Level 4.5 mmol/L (3.5-5.1) Chloride Level 104 mmol/L (98-107) Carbon Dioxide Level 25 mmol/L (20-31) Anion Gap 10 (5-15) Blood Urea Nitrogen 10 mg/dL (9-23) Creatinine 1.14 mg/dL (0.550-1.02) Glomerular Filtration Rate Calc 46 mL/min (>90) BUN/Creatinine Ratio 8.8 (10.0-20.0) Serum Glucose 118 mg/dL (74-106) Calcium Level 9.2 mg/dL (8.7-10.4) Influenza Type A Antigen Negative (Negative) Influenza Type B Antigen Negative (Negative) SARS-CoV-2 Antigen (Rapid) Negative (NEGATIVE) Magnesium Level 2.0 mg/dL (1.6-2.6) Total Bilirubin 0.6 mg/dL (0.2-1.0) Direct Bilirubin 0.3 mg/dL (<0.3) Aspartate Amino Transferase (AST) 19 U/L (13-40) Alanine Aminotransferase (ALT) 15 U/L (7-40) Alkaline Phosphatase 63 U/L (46-116) Troponin I High Sensitivity 10 ng/L (</=34) Total Protein 6.2 g/dL (5.7-8.2) Albumin 3.7 g/dL (3.2-4.8) Thyroid Stimulating Hormone (TSH) 0.99 uIU/mL (0.55-4.78) Test 05/22/25 19:37 05/22/25 16:36 D-Dimer, Quantitative 4.29 mg/L FEU (0.0-0.49) White Blood Count 5.5 10^3/uL (4.4-10.8) Red Blood Count 5.23 10^6/uL (4.0-5.20) Hemoglobin 14.9 g/dL (12.2-16.2) Hematocrit 47.2 % (36.0-46.0) Mean Corpuscular Volume 90.4 fL (80.0-100.0) Mean Corpuscular Hemoglobin 28.5 pg (28.0-32.0) Mean Corpuscular Hemoglobin Concent 31.5 g/dL (32.0-36.0) Red Cell Distribution Width 17.0 % (11.8-14.3) Platelet Count 285 10^3/uL (140-450) Mean Platelet Volume 7.8 fL (6.9-10.8) Neutrophils (%) (Auto) 53.7 % (37.0-80.0) Lymphocytes (%) (Auto) 33.1 % (10.0-50.0) Monocytes (%) (Auto) 7.2 % (0.0-12.0) Eosinophils (%) (Auto) 5.7 % (0.0-7.0) Basophils (%) (Auto) 0.3 % (0.0-2.0) Neutrophils # (Auto) 3.0 10 ^3/uL (1.6-8.6) Lymphocytes # (Auto) 1.8 10 ^3/uL (0.4-5.4) Monocytes # (Auto) 0.4 10 ^3/uL (0-1.3) Eosinophils # (Auto) 0.3 10 ^3/uL (0-0.8) Basophils # (Auto) 0 10 ^3/uL (0-0.2) Nucleated Red Blood Cells 0.1 % B-Type Natriuretic Peptide 128.99 pg/mL (0-100) Other Laboratory Tests 05/23/25 08:21 05/22/25 16:36 Brief Hx & Hospital Course: Mrs. Rodriguez, is 89-year-old female, with extensive past medical history of AFib (on Eliquis and amiodarone), CHF ( HFrEF 20% last echo 05/04/2025), COPD (2 L of home oxygen), hypertension, hyperlipidemia and diabetes mellitus type 2. The patient came to the [facility] via EMS from the [facility] with the chief complaint of 4 days of bilateral upper extremities, chest and back rash, the sudden start, that is erythematous associated with pruritus. The patient is a poor historian, and on inquiry she does not know if she started any new medication,wore any new lotion, took any food that might have led to the allergic reaction. The patient she denies any chest pain, shortness of breath, palpitation, abdominal pain, nausea, vomiting, or any other symptoms. In the ED: the heart rate was 140, RR 30 and SpO2 98 in room air. EKG shows atrial fibrillation with RVR. The patient received a dose of methylprednisolone 125mg IV #1. The patient was admitted the patient for further assessment and management. Past medical history: As stated above Past surgical: Hip replacement surgery and 2 sections Social history: Quit smoking in 2008, 40 pack per year smoking history. Denies alcohol, recreational drug use. Full code, next to kin his grandson. Home medication: Bailey, unsure of other home medication Allergic history: penicillins Code status: Full code Information obtained with the help of patient's daughter. Hospital course: On 05/23/25, the patient was evaluated and examined at bedside, I have reviewed the patient's VS, laboratories and chart. The patient reports feeling itchiness in the areas of the rash. Due to pressure on the buttock area, a wound consult was placed, wound care team put a clean dressing on the pressure ulcers. Due to the Afib, the patient was placed on amiodarone 200mg po bid, patient's heart rate has been controlled. The patient is on telemetry, that shows sinus rhythm, HR: 89bpm. The allergy has improved after Benadryl 25mg IV #1 and methylprednisolone 125mg IV #1. I have spoken with the patient's daughters in regards hospice services for this patient. The daughters agree to understanding of the necessity of hospice services, they report they will meet with the rest of the family to discuss the hospice care for the patient. Today, due to significant clinical improvement, the patient is being discharge to SNF: [facility]. Transport arrangements have been made. The patient will F/U with PCP in one week. ROS Constitutional: No: Fever, Chills, Sweats, Weakness, Malaise, Other Eyes: No: Pain, Vision change, Conjunctivae inflammation, Eyelid inflammation, Other, Redness ENT: No: Ear pain, Ear discharge, Nose pain, Nose discharge, Nose congestion, Mouth pain, Mouth swelling, Throat pain, Throat swelling, Other Respiratory: No: Cough, Dry, Shortness of breath, SOB with excertion, Wheezing, Hemoptysis, Pleuritic Pain, Sputum, Wheezing, Other Cardiovascular: No: Chest Pain, Palpitations, Orthopnea, Paroxysmal Noc. Dyspnea, Edema, Lt Headedness, Other Gastrointestinal: No: Nausea, Vomiting, Abdominal Pain, Diarrhea, Constipation, Melena, Hematochezia, Other Genitourinary: No Dysuria, No Frequency, No Incontinence, No Hematuria, No Retention, No Other Musculoskeletal: No: other, neck pain, shoulder pain, arm pain, back pain, hand pain, leg pain, foot pain Skin: Rash, Other (Itching); No: Lesions, Jaundice, Bruising Neurological: No: Weakness, Numbness, Incoordination, Change in speech, Confusion, Seizures, Other Allergies: Penicillins (Verified Allergy, Unknown, 03/30/24) Information obtained with help of patient's daughter. Physical Exam The patient is lying on bed General Appearance: Alert, Oriented X2 (person and place), Cooperative, not in acute distress, poor historian HEENT: Atraumatic, Mucous membranes moist/pink Respiratory: Clear to auscultation, Normal air movement, No added sounds Cardiovascular: Regular rate, Normal S1, Normal S2, No murmurs Abdominal: Active bowel sounds, Soft, no distention, no tenderness Extremities: No edema, Normal pulses, No tenderness/swelling Skin: presence of erythema in entire bilateral arms, chest and backstage I wound on the buttock on presentation Neuro: Normal speech, sensorimotor deficits none Perianal area:There are 2 pressure ulcers in the perianal area Stage 2 with clean dressing. Psych/Mental Status: Mental status NL, Mood NL Consults/Reason for consult Wound consult: for pressure ulcers Social consult: arrange transport back to [facility] Operations or Procedures PROCEDURE(s): CXR1 - CHEST XRAY 1 VIEW REASON: sob ORDER NUMBER(s): [id number], ACCESSION NUMBER(s): [id number] CHEST RADIOGRAPH Indication: sob Technique: Single frontal view of the chest was obtained COMPARISON: XY CHEST XRAY 1 VIEW on DOS: 05/10/25, US CHEST ULTRASOUND on DOS: 05/07/25, XY CHEST XRAY 1 VIEW on DOS: 05/06/25, CT CHEST WITHOUT CONTRAST on DOS: 05/03/25, XY CHEST XRAY 1 VIEW on DOS: 05/03/25 FINDINGS: Lines and Tubes: None Lungs: Near-complete interval resolution of right pleural effusion. Complete interval resolution of left pleural effusion. No evidence of focal consolidation. No pneumothorax. Cardiomediastinal contours: Unremarkable Bones: Unremarkable IMPRESSION: 1. Near-complete interval resolution of right pleural effusion. 2. Complete interval resolution of left pleural effusion. 3. No evidence of focal consolidation. EDURE(s): BLDVT - BiLat Lower DVT REASON: elevated d dimer ORDER NUMBER(s): [id number], ACCESSION NUMBER(s): [id number] Bilateral lower extremity venous duplex Clinical History: elevated d dimer Comparison: XY CHEST XRAY 1 VIEW on DOS: 05/23/25, XY CHEST XRAY 1 VIEW on DOS: 05/10/25, US CHEST ULTRASOUND on DOS: 05/07/25, XY CHEST XRAY 1 VIEW on DOS: 05/06/25, US ECHO 2D MODE CARDIAC DOP on DOS: 05/04/25 Technique: Duplex Doppler evaluation of the deep venous systems of both lower extremities from the common femoral veins to the popliteal veins including color Doppler and spectral/pulsed waveform analysis was performed. Findings: RIGHT SIDE: The common femoral vein demonstrates appropriate compressibility and waveform variability. There is compressibility/patency of the great saphenous vein at the proximal thigh. The femoral vein demonstrates appropriate compressibility and waveform variability. The deep femoral vein demonstrates appropriate compressibility and waveform variability. The popliteal vein demonstrates appropriate compressibility and waveform variability. There is normal compressibility at the tibioperoneal trunk. LEFT SIDE: The common femoral vein demonstrates appropriate compressibility and waveform variability. There is compressibility/patency of the great saphenous vein at the proximal thigh. The femoral vein demonstrates appropriate compressibility and waveform variability. The deep femoral vein demonstrates appropriate compressibility and waveform variability. The popliteal vein demonstrates appropriate compressibility and waveform variability. There is normal compressibility at the tibioperoneal trunk. Impression: 1. No right or left femoropopliteal venous thrombosis. Condition at Discharge: Stable Final Diagnosis/Problems List #Acute episode of Afib with RVR #Paroxysmal Afib #Acute allergic reaction possible likely medication induced. 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 #Diabetes mellitus type 2 with hyperglycemia #COPD no in exacerbation #CHF, systolic disfunction EF20%, not in exacerbation Discharge Disposition: [facility] Discharge Will this Physician continue t: Yes Discharge Instruct/Medications Diet: Consistent carbohydrate, Cardiac 2g Na,low cholest Activity: No Restrictions, As Tolerated Follow Up/Referral: F/U with PCP in one week Medications: Digoxin0.125mg po daily Benadryl 25mg po q8h prn for rash Continue with home medications below: Scheduled Acetaminophen (Acetaminophen), 325 MG PO PRN, (Reported) Amiodarone Hcl (Amiodarone Hcl), 200 MG PO BID Apixaban Base (Eliquis), 2.5 MG PO BID Cephalexin (Keflex Capsule), 250 MG PO Q6HR Furosemide (Lasix), 1 TAB PO DAILY Metoprolol Tartrate (Metoprolol Tartrate), 0.5 TAB PO BID Discharge Statement: "Patient was advised to return to the ER or call 911 if any headaches, dizziness, shortness of breath, chest pain, abdominal pain, bleeding, fevers, or worsening of medical condition. Patient was counseled about treatment plan, medications, possible side effects, patientverbalized understanding. All questions were answered to the best of my ability. This discharge took greater then 30 minutes in planning, reviewing documentation, counseling the patient, and discussing with other team members." Discharge Care Plan Instructions Take Rx medications, Notify MD of any issues, Keep list of meds w/ you, Do not drink ETOH/smoke, Call 911 in an emergency, F/U w/ PCP, Educate on timing of meds ASSESSMENT ASSESSMENT Assessment #Acute episode of Afib with RVR #Chronic paroxysmal Afib #Acute allergic reaction possible likely medication induced. #Chronic pressure ulcers Stage 2-3 #Diabetes mellitus type 2 with hyperglycemia #COPD no in exacerbation #CHF, systolic disfunction EF20%, not in exacerbation Goals of care discussed with the patient and family (Daughters) for more than 35 minutes Code Status: Full code PCP: Jose R. Cardiology: Dr. Pruitt Case discussed with Dr. Jennings The patient and family (Daughters) agrees with the discharge to SNF. Date of Service: May 23, 2025 Billing Provider: TRISTEN JENNINGS MD Common Visit Codes: 79144-ZRG/OBS DISCH DAY >30min DALY SANCHEZ RESIDENT May 23, 2025 18:25
[2025-05-24] MEDS ORDERED: ENOXAPARIN SOD 60 MG/0.6 ML SYRINGE SC SCH (01:00)
== END 2025-05-23 18:29 | DRG 308 ==
LOC: ER 15:47 → EDBD 15:47 → OVERFLOW 23:50 → TELE-EAST 05-23 01:37
PROVIDERS: ADMIT Internal Medicine; ATTEND Internal Medicine
DX: I48.0 Paroxysmal atrial fibrillation (principal); L89.93 Pressure ulcer of unspecified site, stage 3; I13.0 Hypertensive heart and chronic kidney disease with heart failure and stage 1 through stage 4 chronic kidney disease, or unspecified chronic kidney disease; I50.22 Chronic systolic (congestive) heart failure; E11.22 Type 2 diabetes mellitus with diabetic chronic kidney disease; J44.89 Other specified chronic obstructive pulmonary disease; N18.9 Chronic kidney disease, unspecified; Z20.822 Contact with and (suspected) exposure to COVID-19; E11.65 Type 2 diabetes mellitus with hyperglycemia; T50.995A Adverse effect of other drugs, medicaments and biological substances, initial encounter; K21.9 Gastro-esophageal reflux disease without esophagitis; Z88.0 Allergy status to penicillin; Z82.49 Family history of ischemic heart disease and other diseases of the circulatory system; Z87.891 Personal history of nicotine dependence; Z79.899 Other long term (current) drug therapy
CPT/HCPCS: 36415; 71045; 80048; 80076; 82962; 83735; 83880; 84443; 84484; 85025; 85379; 87426; 87804; 93005; 93970; 94640; 96361; 96374; 96375; 99291; G0378; J1815; J2470